=== PATIENT | female | born 1970 | race Caucasian/White ===

== ENCOUNTER → 2016-08-17 | Outpatient (CLI) | payer BC ==
--- NOTE | 2016-08-18 10:00 | MM ---
Reason for exam: screening (asymptomatic). Last mammogram was performed 1 year ago. History: Patient had first child at age 32. Family history of breast cancer in maternal cousin at age 30. Taking hormonal contraceptives for 10 years beginning at age 16. Physical Findings: A clinical breast exam by your physician is recommended on an annual basis and results should be correlated with mammographic findings. MG Screening Mammo w CAD Bilateral CC and MLO view(s) were taken. Prior study comparison: August 14, 2015, bilateral MG screening mammo w CAD. August 05, 2010, bilateral digital screening mammo w/CAD. The breast tissue is almost entirely fat. No significant changes when compared with prior studies. ASSESSMENT: Negative, BI-RAD 1 RECOMMENDATION: Routine screening mammogram of both breasts in 1 year.
== END | disposition home or self-care (01) ==
LOC: RADMAMWWP 10:16
PROVIDERS: ATTEND Family Medicine
DX: Z12.31 Encounter for screening mammogram for malignant neoplasm of breast (principal)

== ENCOUNTER → 2016-11-23 | Outpatient (CLI) | payer BC ==
--- NOTE | 2016-11-24 08:36 | XR ---
Left knee HISTORY: Left knee pain 3 views of the left knee Bone mineralization, joint spaces and alignment are maintained. No fracture or dislocation. IMPRESSION: No significant abnormalities evident.
== END ==
LOC: RADXRYALE 15:00
PROVIDERS: ATTEND Physician Assistant Medical
DX: M25.562 Pain in left knee (principal)

== ENCOUNTER 2019-09-04 | Emergency (ER) | payer OTHER, BC | END 2019-09-04 15:25 | disposition home or self-care (01) | CPT/HCPCS: 73562; 72125; 70450; 99285; 96372 ×2; J2360; J1885 ==

== ENCOUNTER → 2019-11-16 | Outpatient (CLI) | payer OTHER, BC ==
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
== END | disposition home or self-care (01) ==
LOC: RADMRIMAIN 10:27
PROVIDERS: ATTEND Orthopaedic Surgery
DX: S83.242A Other tear of medial meniscus, current injury, left knee, initial encounter (principal); S83.282A Other tear of lateral meniscus, current injury, left knee, initial encounter; M17.12 Unilateral primary osteoarthritis, left knee; M94.262 Chondromalacia, left knee

== ENCOUNTER → 2019-11-28 | Outpatient (CLI) | payer OTHER, BC ==
[2019-11-28 15:06] LABS: Basophils # (A) 0.1 k/uL (0-0.2); Basophils % (A) 1 %; Eosinophils # (A) 0.4 k/uL (0-0.7); Eosinophils % (A) 3 %; HCT 40.8 % (34.0-46.0); HGB 13.1 gm/dL (11.4-16.0); Lymphocytes # (A) 2.9 k/uL (1.0-4.8); Lymphocytes % (A) 23 %; MCH 28.7 pg (25.0-35.0); MCHC 32.1 g/dL (31.0-37.0); MCV 89.2 fL (80.0-100.0); Mean Platelet Volume 6.5; Monocytes # (A) 0.4 k/uL (0-1.0); Monocytes % (A) 3 %; Neutrophils # (A) 8.5 k/uL (1.3-7.7); Neutrophils % (A) 69 %; Platelet Count 404 k/uL (150-450); RBC 4.57 m/uL (3.80-5.40); WBC 12.4 k/uL (3.8-10.6)
[2019-11-28 15:12] LABS: Potassium 3.9 mmol/L (3.5-5.1)
== END | disposition home or self-care (01) ==
LOC: LABPAT 14:32
PROVIDERS: ATTEND Orthopaedic Surgery
DX: Z01.818 Encounter for other preprocedural examination (principal); M23.92 Unspecified internal derangement of left knee
CPT/HCPCS: 36415; 80051; 85025; 93005

== ENCOUNTER 2019-12-07 14:55 | Day surgery (SDC) | payer OTHER, BC ==
[2019-12-01 08:28] VITALS: BMI 42.0
--- NOTE | 2019-12-06 18:17 | HP ---
HISTORY AND PHYSICAL DATE OF SURGERY: 12/07/2019 Virginia Eugene is a 49-year-old patient seen with progressive left knee pain. We discussed options for treatment. She elected to proceed with arthroscopy. Consent regarding the procedure was obtained. PAST MEDICAL HISTORY: Hypertension, hyperlipidemia, hypothyroidism, xww-gajffca-mmbaopjde diabetes. PAST SURGICAL HISTORY: section, cholecystectomy. DAILY MEDICATIONS: Atorvastatin, gabapentin, hydrochlorothiazide, levothyroxine, losartan, Zoloft. ALLERGIES: SULFA. SOCIAL HISTORY: She denies tobacco use. PHYSICAL EVALUATION OF THE LEFT KNEE: Her range of motion is 0 to 130. There is a mild effusion present. Tenderness, medial joint line. Positive medial Donna's. Ligaments stable. Hip rotation without pain. Distal neurovascular exam intact. RADIOGRAPHS: Left knee radiographs revealed moderate osteoarthritic changes. MRI of the left knee revealed medial and lateral meniscal tears. IMPRESSION: 1. Internal derangement of the left knee with medial and lateral meniscal tears. 2. Left knee osteoarthritis. 3. Hypertension. 4. Hyperlipidemia. 5. Hypothyroidism. PLAN: Left knee arthroscopy with partial meniscectomy, partial synovectomy and debridement. MMODL / IJN: [id number] /
[~2019-12-07 14:55] MED LIST: DEXAMETHASONE SOD PHOSPHATE 10 MG/ML 1 ML VIAL IV ONE; LACTATED RINGERS 1,000 ML IV SCH; LIDOCAINE 1% (10MG/ML) FOR IV START INTRADERMA PRN
[2019-12-07] MEDS: ONDANSETRON 4 MG/2 ML VIAL IVP ONE ×2 (15:29→16:55)
[2019-12-07 15:32] LABS: Glucose,Whole Blood 113 mg/dL (75-99)
[2019-12-07] MEDS ORDERED: BUPIVACAINE (PF) 0.25% 30 ML VIAL SQ ONE ×2 (15:51→16:35)
[2019-12-07] MEDS ORDERED: SUCCINYLCHOLINE CHLORIDE 100 MG/5 ML SYR IV ONE (15:56)
[2019-12-07] MEDS ORDERED: PROPOFOL 10 MG/ML 20 ML VIAL IV ONE (15:56)
[2019-12-07] MEDS ORDERED: fentaNYL (PF) 50 MCG/ML 2 ML AMP ONE (15:56)
[2019-12-07] MEDS ORDERED: LIDOCAINE 1% INJ 10MG/ML (20 ML MDV) ONE (15:56)
[2019-12-07] MEDS ORDERED: MIDAZOLAM 2 MG/2 ML VIAL ONE (15:56)
[2019-12-07 16:47] VITALS: TEMP 96.8
[2019-12-07 16:48] VITALS: RESP 16
--- NOTE | 2019-12-07 16:53 | P.OP ---
Date of Procedure: 12/07/19 Preoperative Diagnosis: Internal derangement left knee Postoperative Diagnosis: 1. Tear medial meniscus left knee 2. 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 Reactive synovitis medial, lateral and suprapatellar compartments left knee Procedure(s) Performed: 1. Arthroscopic partial medial meniscectomy left knee 2. Arthroscopic chondroplasty medial femoral condyle left knee 3. Arthroscopic partial synovectomy medial, lateral and suprapatellar compartments left knee Anesthesia: GETA, local Surgeon: Rigoberto Gonzalez Estimated Blood Loss (ml): 7 Pathology: none sent Condition: stable Disposition: PACU Indications for Procedure: 49-year-old patient seen with progressive left knee pain. After treatment options were discussed, she elected to proceed with arthroscopy. Operative Findings: See description of procedure Description of Procedure: Patient was taken to the operative suite. Patient underwent a general anesthetic by the department of anesthesia. Patient was given preoperative antibiotics. The left lower extremity was placed in a well-padded arthroscopic leg morales. The left leg was prepped and draped in the normal sterile orthopedic fashion. A lateral parapatellar and suprapatellar incision was made. Trochars were inserted. Arthroscopy was initiated. Suprapatellar pouch revealed diffuse thick reactive synovitis. The patellofemoral joint appeared to articulate congruently. There as grade 1 chondromalacia with no osteochondral tears present. The scope was guided into the medial gutter. No loose bodies or plica were identified. The scope was then guided into the medial compartment. A medial parapatellar incision was made. Trocar inserted followed by probe. There was a radial tear posterior medial meniscus. There were grade 1/2 chondromalacia changes the medial femoral condyle with some osteochondral flap tears present. There was thick reactive synovitis anteriorly. I performed a partial medial meniscectomy getting down to stable meniscal tissue. I performed a chondroplasty of the medial femoral condyle getting down to stable osteochondral tissue. I performed a partial synovectomy decompressing reactive synovitis. The residual meniscus was stable. The residual osteochondral surface was stable. There was good decompression of the synovitis. Scope and probe were then guided into the intercondylar notch. Cruciates were identified, probed and found to be stable. The scope and probe were then guided into lateral compartment. The lateral meniscus was probed and found to be stable. There was some mild fraying along the anterior aspect the lateral meniscus. There was thick reactive space anteriorly. A motorize shaver was introduced I debrided that area fraying followed by performing a partial synovectomy decompressing thick reactive synovitis. The shaver was removed. There was good decompression of the synovitis. The scope was in guided back into the suprapatellar compartment. I a motorized shaver into the suprapatellar co mpartment. I debrided some piecemeal fragments of meniscus I encountered. I performed a partial synovectomy decompressing the reactive synovitis. The shaver was removed. I took one more look on the entire knee, no residual debris. Instruments were now removed from the joint. The joint was infiltrated with .25% Marcaine. Steri-Strips were applied to the portal sites. Sterile dressings were applied. The patient was placed into a SOURAV hose. No tourniquet was utilized. The patient was awakened, transferred to a bed and taken to recovery stable satisfactory condition.
[2019-12-07] MEDS: HYDROmorphone 0.5 MG/0.5 ML SYRINGE IVP PRN ×3 (16:55→17:18)
[2019-12-07 18:00] VITALS: BP 128/81; PULSE 72
[2019-12-07] MEDS ORDERED: HYDROcodone/APAP 5-325MG 1 EACH TAB PO ONE (18:05)
== END 2019-12-07 18:56 | disposition home or self-care (01) ==
LOC: OR 14:55
PROVIDERS: ATTEND Orthopaedic Surgery
DX: S83.242A Other tear of medial meniscus, current injury, left knee, initial encounter (principal); X58.XXXA Exposure to other specified factors, initial encounter; M94.262 Chondromalacia, left knee; M65.862 Other synovitis and tenosynovitis, left lower leg; I10 Essential (primary) hypertension; E78.5 Hyperlipidemia, unspecified; E03.9 Hypothyroidism, unspecified; E11.9 Type 2 diabetes mellitus without complications; Z90.49 Acquired absence of other specified parts of digestive tract; Z98.890 Other specified postprocedural states; G47.33 Obstructive sleep apnea (adult) (pediatric); F32.9 Major depressive disorder, single episode, unspecified; Z79.890 Hormone replacement therapy; Z79.899 Other long term (current) drug therapy; Z88.2 Allergy status to sulfonamides; Z88.0 Allergy status to penicillin
CPT/HCPCS: 81025; 29881; 29876; J2250; J1100; J0690; J2405; J2001; J3010; J0330; J2704; J1170

== ENCOUNTER → 2019-12-12 | Outpatient (CLI) | payer OTHER, BC ==
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
== END | disposition home or self-care (01) ==
LOC: RADMRIMAIN 09:36
PROVIDERS: ATTEND Family Medicine
DX: M50.122 Cervical disc disorder at C5-C6 level with radiculopathy (principal)
CPT/HCPCS: 72141

== ENCOUNTER → 2020-01-08 | Outpatient (CLI) | payer BC, OTHER ==
--- NOTE | 2020-01-08 16:07 | BD ---
EXAMINATION TYPE: Axial Bone Density DATE OF EXAM: 01/08/2020 COMPARISON: NONE CLINICAL HISTORY: Vitamin D deficiency Height: 63 IN Weight: 257 LBS FRAX RISK QUESTIONS: Secondary Osteoporosis: 3. Menopause before 45: NO PERIODS TAKES DEPO SHOT RISK FACTORS HISTORY OF: Family History of Osteoporosis: YES MOTHER Active: MODERATE Diet low in dairy products/other sources of calcium: Postmenopausal woman: NO PERIODS PT TAKES DEPO SHOT 10+ YEARS Take estrogen and/or progesterone medications: YES DEPO SHOTS 10+ YEARS MEDICATIONS: Thyroid Medications: YES Which medication: Levothyroxine How Lon+ YEARS Additional Medications: VITD3, LEVOTHYROXINE,DEPO SHOTS, MULTI VIT, ASPIRIN 81 MG, SERTRALINE, ARIPOP RAZOLE, ATORVASTATIN, LOSARTAN, GABAPENTIN, CYCLOBENZAPRINE EXAM MEASUREMENTS: Bone mineral densitometry was performed using the e[employer] System. Bone mineral density as measured about the Lumbar spine is: ----- L1-L4(G/cm2): 1.301 T Score Values are as follows: ----- L2: 0.6 ----- L3: 2.3 ----- L4: 0.7 ----- L1-L4: 1.0 Bone mineral density BASELINE Bone mineral density about the R hip (g/cm2): 0.976 Bone mineral density about the L hip (g/cm2): 1.042 T Score values are as follows: -----R Neck: -0.4 -----L Neck: 0.0 -----R Total: 0.5 -----L Total: 0.8 Bone mineral density BASELINE IMPRESSION: Normal (Values between +1 and -1 indicate normal bone mass). Consider repeating this study in 5 year s or sooner if there is some new clinical indication. NOTE: T-SCORE=SD OF THE YOUNG ADULT MEAN.
--- NOTE | 2020-01-09 10:33 | MM ---
Reason for exam: screening (asymptomatic). Last mammogram was performed 3 years and 5 months ago. History: Patient had first child at age 32. Family history of breast cancer in maternal cousin at age 30. Taking hormonal contraceptives for 10 years beginning at age 16. Physical Findings: A clinical breast exam by your physician is recommended on an annual basis and results should be correlated with mammographic findings. MG Screening Mammo w CAD Bilateral CC and MLO view(s) were taken. Prior study comparison: August 17, 2016, bilateral MG screening mammo w CAD. August 14, 2015, bilateral MG screening mammo w CAD. The breast tissue is almost entirely fat. No significant changes when compared with prior studies. ASSESSMENT: Negative, BI-RAD 1 RECOMMENDATION: Routine screening mammogram of both breasts in 1 year.
== END | disposition home or self-care (01) ==
LOC: RADMAMWWP 13:23
PROVIDERS: ATTEND Family Medicine
DX: Z12.31 Encounter for screening mammogram for malignant neoplasm of breast (principal); E55.9 Vitamin D deficiency, unspecified
CPT/HCPCS: 77067; 77080

== ENCOUNTER → 2020-04-16 | Outpatient (CLI) | payer BC ==
--- NOTE | 2020-04-16 18:31 | XR ---
EXAMINATION TYPE: XR abdomen 2V DATE OF EXAM: 04/16/2020 11:57 AM CLINICAL HISTORY: Generalized abdominal pain with diarrhea for 3 to 4 weeks TECHNIQUE: Supine and upright images of the abdomen and pelvis were obtained COMPARISON: None. FINDINGS: Right upper quadrant surgical clips. There is a paucity of small bowel gas. Nondistended co lillian., Although the right hemidiaphragm is somewhat cut off on the upright image, there is no large pn eumoperitoneum seen. The lung bases are clear. The osseous structures are intact. Pelvic phleboliths. IMPRESSION: Paucity of small bowel gas limits evaluation of the small bowel. Nonspecific bowel gas pattern of the colon.
== END | disposition home or self-care (01) ==
LOC: RADXRYALE 11:47
PROVIDERS: ATTEND Physician Assistant Medical
DX: R14.3 Flatulence (principal)
CPT/HCPCS: 74019

== ENCOUNTER → 2020-04-30 | Outpatient (CLI) | payer BC ==
--- NOTE | 2020-04-30 15:21 | XR ---
EXAMINATION TYPE: XR chest 2V DATE OF EXAM: 04/30/2020 COMPARISON: NONE TECHNIQUE: PA and lateral views submitted. HISTORY: Cough FINDINGS: The lungs are clear and there is no pneumothorax, pleural effusion, or focal pneumonia. Hypertrophi c change of the spine. IMPRESSION: 1. No acute process.
== END | disposition home or self-care (01) ==
LOC: RADXRYALE 15:05
PROVIDERS: ATTEND Physician Assistant Medical
DX: R05 Cough (principal)
CPT/HCPCS: 71046

== ENCOUNTER → 2020-10-07 | Outpatient (CLI) | payer BC ==
[2020-10-07 21:39] LABS: Hemoglobin A1C 8.8 % (4.0-6.0)
[2020-10-08 00:16] LABS: African American GFR (CKD) 98.2 (60.0-200.0); Albumin 4.6 g/dL (3.80-4.90); Albumin/Globulin Ratio 1.77 (1.60-3.17); Anion Gap 13.6 mmol/L (4.00-12.00); BUN/Creat Ratio 23.75 Ratio (12.00-20.00); Calcium 9.6 mg/dL (8.7-10.3); Carbon Dioxide 22.4 mmol/L (21.6-31.8); Chol/HDL Ratio 3.36; Globulin 2.6 g/dL (1.6-3.3); Non-African American GFR(CKD) 84.8 (60.0-200.0); Total Bilirubin 0.4 mg/dL (0.2-1.2); Total Protein 7.2 g/dL (6.2-8.2)
[2020-10-08 15:41] LABS: Urine Creatinine 96.9 mg/dL
== END | disposition home or self-care (01) ==
LOC: LABWHC1 10:38
PROVIDERS: ATTEND Internal Medicine Endocrinology, Diabetes & Metabolism
DX: E11.65 Type 2 diabetes mellitus with hyperglycemia (principal); E03.9 Hypothyroidism, unspecified
CPT/HCPCS: 36415; 80053; 80061; 82043; 82570; 83036; 84439; 84443

== ENCOUNTER → 2020-10-15 | Outpatient (CLI) | payer BC ==
--- NOTE | 2020-10-15 15:15 | XR ---
EXAMINATION TYPE: XR foot complete LT DATE OF EXAM: 10/15/2020 CLINICAL HISTORY: pain TECHNIQUE: Frontal, lateral and oblique images of the left foot are obtained. COMPARISON: None. FINDINGS: There is no acute fracture/dislocation evident. The joint spaces appear within normal seay its. The overlying soft tissue appears unremarkable. Small dorsal calcaneal spur without significant plantar calcaneal spur. Cystic lesion at the base of the first metatarsal is nonspecific although ma y reflect a simple bone cyst. IMPRESSION: There is no acute fracture or dislocation. ICD 10 NO FRACTURE, INITIAL EVALUATION
== END | disposition home or self-care (01) ==
LOC: RADXRYALE 14:49
PROVIDERS: ATTEND Physician Assistant Medical
DX: M79.672 Pain in left foot (principal)

== ENCOUNTER → 2021-01-20 | Outpatient (CLI) | payer OTHER ==
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
== END | disposition home or self-care (01) ==
LOC: RADMRIMAIN 14:31
PROVIDERS: ATTEND Psychiatry & Neurology Pain Medicine
DX: M50.223 Other cervical disc displacement at C6-C7 level (principal); M47.812 Spondylosis without myelopathy or radiculopathy, cervical region; M99.71 Connective tissue and disc stenosis of intervertebral foramina of cervical region
CPT/HCPCS: 72156; A9585

== ENCOUNTER → 2021-02-05 | Outpatient (CLI) | payer BC ==
[2021-02-05 21:43] LABS: Hemoglobin A1C 7.2 % (4.0-6.0)
[2021-02-05 22:29] LABS: African American GFR (CKD) 98.2 (60.0-200.0); Albumin 4.2 g/dL (3.80-4.90); Albumin/Globulin Ratio 1.5 (1.60-3.17); Anion Gap 11.6 mmol/L (4.00-12.00); Calcium 9.1 mg/dL (8.7-10.3); Carbon Dioxide 27.4 mmol/L (21.6-31.8); Chol/HDL Ratio 2.58; Globulin 2.8 g/dL (1.6-3.3); LDL Cholesterol,Calculated 77.6 mg/dL (0.0-131.0); Non-African American GFR(CKD) 84.8 (60.0-200.0); Potassium 3.9 mmol/L (3.5-5.5); Total Bilirubin 0.6 mg/dL (0.2-1.2); VLDL Calculation 17.4 mg/dL (5.00-40.00)
[2021-02-06 03:05] LABS: Microalbumin Creatinine Ratio <30 mg/g Creat (0-30); Urine Creatinine 192.2 mg/dL
== END | disposition home or self-care (01) ==
LOC: LABWHC1 12:46
PROVIDERS: ATTEND Internal Medicine Endocrinology, Diabetes & Metabolism
DX: E11.65 Type 2 diabetes mellitus with hyperglycemia (principal)
CPT/HCPCS: 36415; 80053; 80061; 82043; 82570; 83036; 84443

== ENCOUNTER → 2021-04-03 | Outpatient (CLI) | payer BC ==
--- NOTE | 2021-04-04 11:17 | MM ---
Reason for exam: screening (asymptomatic). Last mammogram was performed 1 year and 3 months ago. History: Patient had first child at age 32. Family history of breast cancer in maternal cousin at age 30. Taking hormonal contraceptives for 20 years beginning at age 16. Physical Findings: A clinical breast exam by your physician is recommended on an annual basis and results should be correlated with mammographic findings. MG Screening Mammo w CAD Bilateral CC, MLO, and XCCL view(s) were taken. Prior study comparison: January 08, 2020, bilateral MG screening mammo w CAD. August 17, 2016, bilateral MG screening mammo w CAD. The breast tissue is almost entirely fat. There are benign appearing round calcifications bilaterally. There is no discrete abnormality. ASSESSMENT: Benign, BI-RAD 2 RECOMMENDATION: Routine screening mammogram of both breasts in 1 year.
== END | disposition home or self-care (01) ==
LOC: RADMAMWWP 15:29
PROVIDERS: ATTEND Family Medicine
DX: Z12.31 Encounter for screening mammogram for malignant neoplasm of breast (principal); Z80.3 Family history of malignant neoplasm of breast
CPT/HCPCS: 77067

== ENCOUNTER 2021-05-16 16:00 | Inpatient (IN) | payer BC ==
[2021-05-16 17:19] LABS: Basophils # (A) 0.1 k/uL (0-0.2); Basophils % (A) 1 %; Eosinophils # (A) 0.2 k/uL (0-0.7); Eosinophils % (A) 2 %; HCT 43.6 % (34.0-46.0); HGB 14.5 gm/dL (11.4-16.0); Lymphocytes # (A) 1.3 k/uL (1.0-4.8); Lymphocytes % (A) 17 %; MCH 29.2 pg (25.0-35.0); MCHC 33.2 g/dL (31.0-37.0); Mean Platelet Volume 7.2; Monocytes # (A) 0.4 k/uL (0-1.0); Monocytes % (A) 5 %; Neutrophils # (A) 5.7 k/uL (1.3-7.7); Neutrophils % (A) 73 %; Platelet Count 504 k/uL (150-450); RBC 4.96 m/uL (3.80-5.40); RDW 13.7 % (11.5-15.5); WBC 7.8 k/uL (3.8-10.6)
[2021-05-16 17:39] LABS: ALT 104 U/L (4-34); AST 90 U/L (14-36); African American GFR (CKD) >90 (>60 ml/min/1.73 sqM); Albumin 3.2 g/dL (3.5-5.0); Alkaline Phosphatase 109 U/L (38-126); Anion Gap 11 mmol/L; Blood Urea Nitrogen 12 mg/dL (7-17); Calcium 8.9 mg/dL (8.4-10.2); Carbon Dioxide 24 mmol/L (22-30); Chloride 103 mmol/L (98-107); Glucose 237 mg/dL (74-99); LDH 1216 U/L (313-618); Magnesium 1.7 mg/dL (1.6-2.3); Non-African American GFR(CKD) >90 (>60 ml/min/1.73 sqM); Potassium 4.2 mmol/L (3.5-5.1); Prothrombin Time 10.7 sec (9.0-12.0); Sodium 138 mmol/L (137-145); Total Bilirubin 0.6 mg/dL (0.2-1.3); Total Protein 6.8 g/dL (6.3-8.2)
[2021-05-16 17:47] LABS: Partial Thromboplastin Time 20.7 sec (22.0-30.0)
[2021-05-16 17:52] LABS: C Reactive Protein 18.6 mg/dL (<1.0)
--- NOTE | 2021-05-16 17:53 | XR ---
EXAMINATION TYPE: XR chest 1V portable DATE OF EXAM: 05/16/2021 COMPARISON: 04/30/2020 HISTORY: Pneumonia S/P TECHNIQUE: FINDINGS: There is some bilateral patchy interstitial pulmonary infiltrates. Heart size is normal. Th ere is slight blunting right costophrenic angle. There are no hilar masses. Bony thorax is intact. IMPRESSION: Bilateral interstitial pneumonia is new compared to old exam. Small right pleural effusio n or pleural reaction is new compared to old exam.
[2021-05-16] MEDS ORDERED: DEXAMETHASONE SOD PHOSPHATE 10 MG/ML 1 ML VIAL IVP STA (17:56)
--- NOTE | 2021-05-16 17:56 | ED ---
General Adult HPI - General Chief complaint: Upper Respiratory Infection Stated complaint: Covid+/antibodies Time Seen by Provider: 05/16/21 16:34 Source: patient, RN notes reviewed Mode of arrival: ambulatory Limitations: no limitations - History of Present Illness Initial comments: 50-year-old with a past medical history of diabetes mellitus, hyperlipidemia, hypertension female presents to the emergency room for a chief complaint of wanting antibodies. Patient was sent in by primary care. She has had Covid symptoms for about 10 days now. pt tested positive about a week ago. She has been short of breath for about a week as well.Patient has no other complaints at this time including chest pain, abdominal pain, nausea or vomiting, headache, or visual changes. - Related Data Home Medications Medication Instructions Recorded Confirmed Aspirin 81 mg PO DAILY 04/18/16 12/01/19 Atorvastatin [Lipitor] 40 mg PO DAILY 04/18/16 12/01/19 Cholecalciferol [Vitamin D3] 10,000 unit PO DAILY 04/18/16 12/01/19 Levothyroxine Sodium [Synthroid] 125 mcg PO DAILY 04/18/16 12/01/19 ARIPiprazole [Abilify] 5 mg PO DAILY 12/01/19 12/01/19 Cyclobenzaprine [Flexeril] 10 mg PO TID PRN 12/01/19 12/01/19 Gabapentin [Neurontin] 300 mg PO TID 12/01/19 12/01/19 Losartan Potassium [Cozaar] 25 mg PO DAILY 12/01/19 12/07/19 Medroxyprogesterone Acetate 150 mg IM Q90D 12/01/19 12/01/19 [Depo-Provera] Multivitamins, Thera [Multivitamin 1 tab PO DAILY 12/01/19 12/01/19 (formulary)] Sertraline [Zoloft] 150 mg PO DAILY 12/01/19 12/01/19 Previous Rx's Medication Instructions Recorded HYDROcodone/APAP 5-325MG [[place] 1 tab PO Q6HR PRN 7 Days #28 tab 12/07/19 5-325] Allergies Allergy/AdvReac Type Severity Reaction Status Date / Time amoxicillin [From Augmentin] AdvReac Nausea & Verified 05/16/21 16:12 Vomiting clavulanic acid AdvReac Nausea & Verified 05/16/21 16:12 [From Augmentin] Vomiting Sulfa (Sulfonamide AdvReac Nausea Verified 05/16/21 16:12 Antibiotics) Review of Systems ROS Statement: Those systems with pertinent positive or pertinent negative responses have been documented in the HPI. ROS Other: All systems not noted in ROS Statement are negative. Past Medical History Past Medical History: Diabetes Mellitus, Hyperlipidemia, Hypertension, Thyroid Disorder Additional Past Medical History / Comment(s): diverticulitis, low potassium History of Any Multi-Drug Resistant Organisms: None Reported Past Surgical History: Section, Cholecystectomy Past Psychological History: Depression Smoking Status: Never smoker Past Alcohol Use History: None Reported Past Drug Use History: None Reported General Exam Limitations: no limitations General appearance: alert, in no apparent distress Head exam: Present: atraumatic Eye exam: Present: normal appearance, PERRL, EOMI ENT exam: Present: normal exam, mucous membranes moist Neck exam: Present: normal inspection, full ROM. Absent: tenderness Respiratory exam: Present: normal lung sounds bilaterally. Absent: respiratory distress, wheezes Cardiovascular Exam: Present: regular rate, normal rhythm, normal heart sounds GI/Abdominal exam: Present: soft, normal bowel sounds. Absent: distended, tenderness Neurological exam: Present: alert Course Vital Signs 05/16/21 05/16/21 05/16/21 16:09 17:10 17:12 Temperature 98 F Pulse Rate 91 92 Respiratory 20 24 Rate Blood Pressure 142/81 O2 Sat by Pulse 86 L 93 L Oximetry EKG Findings - EKG Comments: EKG Findings:: Normal sinus rhythm, ventricular rate 90, CA interval 1:30, QTC 489 Medical Decision Making - Medical Decision Making Patient presents hypoxic with oxygenation at 86% on room air. On 4 L patient is at 93%. Unfortunately patient does not qualify for antibodies as she is not a candidate for outpatient treatment given acute hypoxic respiratory failure. Therefore laboratory evaluation was initiated and chest x-ray obtained. CBC and CMP unremarkable. COVID-19 markers are pending. Chest x-ray does show bilateral interstitial pneumonia with a small right pleural effusion or reaction. Patient will need to be admitted for acute hypoxic respiratory failure secondary to COVID-19 infection. - Lab Data Result diagrams: 05/16/21 17:07 Lab Results 05/16/21 05/16/21 Range/Units 17:07 17:07 WBC 7.8 (3.8-10.6) k/uL RBC 4.96 (3.80-5.40) m/uL Hgb 14.5 (11.4-16.0) gm/dL Hct 43.6 (34.0-46.0) % MCV 88.0 (80.0-100.0) fL MCH 29.2 (25.0-35.0) pg MCHC 33.2 (31.0-37.0) g/dL RDW 13.7 (11.5-15.5) % Plt Count 504 H (150-450) k/uL MPV 7.2 Neutrophils % 73 % Lymphocytes % 17 % Monocytes % 5 % Eosinophils % 2 % Basophils % 1 % Neutrophils # 5.7 (1.3-7.7) k/uL Lymphocytes # 1.3 (1.0-4.8) k/uL Monocytes # 0.4 (0-1.0) k/uL Eosinophils # 0.2 (0-0.7) k/uL Basophils # 0.1 (0-0.2) k/uL PT 10.7 (9.0-12.0) sec INR 1.0 (<1.2) APTT 20.7 L (22.0-30.0) sec Disposition Clinical Impression: COVID-19, Acute respiratory failure with hypoxia, Pneumonia due to COVID-19 virus Disposition: ADMITTED IP TO THIS HOSP Is patient prescribed a controlled substance at d/c from ED?: No Referrals: Dani Jack DO [Primary Care Provider] - 1-2 days Time of Disposition: 17:55
[2021-05-16] MEDS ORDERED: NALOXONE 0.4 MG/ML 1 ML VIAL IV PRN (17:57)
[2021-05-16] MEDS: SODIUM CHLORIDE 0.9% 1,000 ML IV SCH (18:48)
[2021-05-16 20:50] LABS: Glucose,Whole Blood 266 mg/dL (75-99)
[2021-05-16] MEDS: INSULIN ASPART (NovoLOG) 100 UNIT/ML VIAL SQ SCH (22:30)
[2021-05-17] MEDS ORDERED: BUTALB/APAP/CAFF 50-325-40MG TAB PO PRN (06:41)
[2021-05-17] MEDS ORDERED: CYCLOBENZAPRINE 5 MG TAB PO PRN (06:41)
[2021-05-17 07:06] LABS: Glucose,Whole Blood 307 mg/dL (75-99)
[2021-05-17] MEDS ORDERED: INSULIN ASPART (NovoLOG) 100 UNIT/ML VIAL SQ SCH (07:30)
[2021-05-17] MEDS: DEXAMETHASONE SOD PHOSPHATE 10 MG/ML 1 ML VIAL IVP SCH (07:48)
[2021-05-17] MEDS: INSULIN ASPART (NovoLOG) 100 UNIT/ML VIAL SQ SCH ×4 (07:48→22:40)
[2021-05-17] MEDS: MAGNESIUM OXIDE 400 MG TAB PO SCH (07:49)
[2021-05-17] MEDS: FUROSEMIDE 20 MG TAB PO SCH (07:49)
[2021-05-17] MEDS: SERTRALINE 50 MG TAB PO SCH (07:49)
[2021-05-17] MEDS: ASPIRIN 81 MG PO SCH (07:49)
[2021-05-17] MEDS: MULTIVITAMINS, THERA 1 EACH TAB PO SCH (07:49)
[2021-05-17] MEDS: ZINC SULFATE 220 MG CAP PO SCH (07:49)
[2021-05-17] MEDS: SERTRALINE 100 MG TAB PO SCH (07:49)
[2021-05-17] MEDS: ATORVASTATIN 40 MG TAB PO SCH (07:50)
[2021-05-17] MEDS: GABAPENTIN 300 MG CAP PO SCH ×3 (07:50→22:39)
[2021-05-17] MEDS: LOSARTAN 50 MG TAB PO SCH (07:50)
[2021-05-17] MEDS: ASCORBIC ACID 500 MG TAB PO SCH (07:55)
[2021-05-17] MEDS ORDERED: CHOLECALCIFEROL 125 MCG (5000 IU) TABLET PO SCH (09:00)
[2021-05-17] MEDS: ARIPiprazole 5 MG TAB PO SCH (09:01)
[2021-05-17] MEDS: PIOGLITAZONE 30 MG TAB PO SCH (09:01)
[2021-05-17] MEDS: CHOLECALCIFEROL 125 MCG (5000 IU) TABLET PO SCH (09:01)
[2021-05-17] MEDS: LEVOTHYROXINE 137 MCG TAB PO SCH (09:01)
[2021-05-17] MEDS: FAMOTIDINE 20 MG TAB PO SCH (09:03)
[2021-05-17] MEDS: ENOXAPARIN 40 MG/0.4 ML SYRINGE SQ SCH (09:03)
[2021-05-17 11:42] LABS: Glucose,Whole Blood 397 mg/dL (75-99)
[2021-05-17 16:19] LABS: Glucose,Whole Blood 476 mg/dL (75-99)
[2021-05-17] MEDS: SODIUM CHLORIDE 0.9% 1,000 ML IV SCH (16:26)
--- NOTE | 2021-05-17 17:25 | P.HPIM ---
History of Present Illness This is a pleasant 50 years old female with past medical history of Diabetes Mellitus, Hyperlipidemia, Hypertension, hypothyroidism. She is a patient of Dr. Jack. She also sees Dr. Miller for her diabetes and she has history of arthritis. She presents with shortness of breath and hypoxia. Patient states that she's been diagnosed with [place] 19 infection last Wednesday about one week ago, and she's been complaining from dyspnea like this since the Tuesdays before about 10 days ago. Her shortness of breath was not getting better so she decided to come to emergency room. She has dry cough with no phlegm. No chest pain She had some diarrhea but stopped. No urinary symptoms or difficulty moving his arms or legs. No abdominal pain. She denies smoking, alcohol or illicit drugs She denies doing a test she stated that she has ablation and her has been fixed. No home oxygen Patient afebrile on admission however she was hypoxic at 86% on room air, currently she is saturating 91% on 4 L oxygen per minute Labs reviewed, CBC and INR and BMP are unremarkable. Glucose elevated to 37- 307. Liver enzymes mildly elevated AST slightly elevated at 90 and ALT at 104. Bilirubin is normal at 0.6. He did with ferritin 738, lactate dehydrogenase 1216 and C-reactive protein 18.6. Calcitonin is normal at 0.05. EKG showing normal sinus rhythm at [address]-T changes Chest x-ray: Bilateral interstitial pneumonia Review of Systems CONSTITUTIONAL: No fever, no malaise, no fatigue. HEENT: No recent visual problems or hearing problems. Denied any sore throat. CARDIOVASCULAR: No orthopnea, PND, no palpitations, no syncope. PULMONARY: No chest wall tenderness, no hemoptysis. GASTROINTESTINAL: No diarrhea, no nausea, no vomiting, no abdominal pain. Normoactive bowel sounds. NEUROLOGICAL: No headaches, no weakness, no numbness. HEMATOLOGICAL: Denies any bleeding or petechiae. GENITOURINARY: Denies any burning micturition, frequency, or urgency. MUSCULOSKELETAL/RHEUMATOLOGICAL: Denies any joint pain, swelling, or any muscle pain. ENDOCRINE: Denies any polyuria or polydipsia. Past Medical History Past Medical History: Diabetes Mellitus, Hyperlipidemia, Hypertension, Thyroid Disorder Additional Past Medical History / Comment(s): diverticulitis, low potassium, Type 2 DM, DVT in the 1990s History of Any Multi-Drug Resistant Organisms: None Reported Past Surgical History: Section, Cholecystectomy, Orthopedic Surgery Additional Past Surgical History / Comment(s): Left meniscus repair November 2019 Past Psychological History: Depression Smoking Status: Former smoker Past Alcohol Use History: None Reported Past Drug Use History: None Reported Medications and Allergies Home Medications Medication Instructions Recorded Confirmed Type Aspirin 81 mg PO DAILY 04/18/16 05/16/21 History Atorvastatin [Lipitor] 40 mg PO DAILY 04/18/16 05/16/21 History ARIPiprazole [Abilify] 5 mg PO DAILY 12/01/19 05/16/21 History Gabapentin [Neurontin] 300 mg PO TID 12/01/19 05/16/21 History Medroxyprogesterone Acetate 150 mg IM Q90D 12/01/19 05/16/21 History [Depo-Provera] Multivitamins, Thera [Multivitamin 1 tab PO DAILY 12/01/19 05/16/21 History (formulary)] Sertraline [Zoloft] 50 mg PO DAILY 12/01/19 05/16/21 History Butalb/Acetaminophen/Caffeine 1 tab PO DAILY PRN 05/16/21 05/16/21 History [Fioricet 50-325-40] Cholecalciferol (Vitamin D3) 125 mcg PO DAILY 05/16/21 05/16/21 History [Vitamin D3 (125 MCG = 5,000 IU)] Cyclobenzaprine HCl 7.5 mg PO DAILY PRN 05/16/21 05/16/21 History Dapagliflozin Propanediol [Farxiga] 10 mg PO DAILY 05/16/21 05/16/21 History Furosemide [Lasix] 20 mg PO DAILY 05/16/21 05/16/21 History Glimepiride [Amaryl] 4 mg PO DAILY 05/16/21 05/16/21 History Levothyroxine Sodium [Synthroid] 137 mcg PO DAILY 05/16/21 05/16/21 History Losartan Potassium 100 mg PO DAILY 05/16/21 05/16/21 History Magnesium Oxide [Cuevas] 500 mg PO DAILY 05/16/21 05/16/21 History Pioglitazone HCl 30 mg PO DAILY 05/16/21 05/16/21 History Sertraline [Zoloft] 100 mg PO DAILY 05/16/21 05/16/21 History Turmeric Root Extract [Turmeric] 500 mg PO DAILY 05/16/21 05/16/21 History metFORMIN HCL ER [Glucophage XR] 500 mg PO BID 05/16/21 05/16/21 History Allergies Allergy/AdvReac Type Severity Reaction Status Date / Time amoxicillin [From Augmentin] AdvReac Nausea & Verified 05/16/21 18:28 Vomiting clavulanic acid AdvReac Nausea & Verified 05/16/21 18:28 [From Augmentin] Vomiting Sulfa (Sulfonamide AdvReac Nausea Verified 05/16/21 18:28 Antibiotics) Physical Exam Vitals: Vital Signs Temp Pulse Pulse Resp BP BP Pulse Ox 05/17/21 06:00 97.5 F L 65 19 124/83 91 L 05/17/21 02:00 97.7 F 62 18 127/83 92 L 05/16/21 20:50 98.5 F 79 19 116/82 93 L 05/16/21 20:45 98.1 F 87 20 141/87 96 05/16/21 19:05 88 20 94 L 05/16/21 18:19 88 20 133/81 88 L 05/16/21 18:10 87 18 96 05/16/21 17:12 92 93 L 05/16/21 17:10 24 05/16/21 16:09 98 F 91 20 142/81 86 L Intake and Output 05/16/21 05/17/21 05/17/21 22:59 06:59 14:59 Other: Voiding Method Toilet # Voids 1 Weight 117.934 kg GENERAL: The patient is alert and oriented x3, not in any acute distress. Well developed, well nourished. HEENT: Pupils are round and equally reacting to light. EOMI. No scleral icterus. No conjunctival pallor. Normocephalic, atraumatic. No pharyngeal erythema. No th yromegaly. CARDIOVASCULAR: S1 and S2 present. No murmurs, rubs, or gallops. -PULMONARY: Chest is clear to auscultation, no wheezing or crackles. Bilateral crepitation ABDOMEN: Soft, nontender, nondistended, normoactive bowel sounds. No palpable organomegaly. MUSCULOSKELETAL: No joint swelling or deformity. EXTREMITIES: No cyanosis, clubbing, or pedal edema. NEUROLOGICAL: Gross neurological examination did not reveal any focal deficits. SKIN: No rashes. No petechiae Results CBC & Chem 7: 05/16/21 17:07 05/16/21 17:07 Labs: Abnormal Lab Results - Last 24 Hours (Table) 05/16/21 05/16/21 05/16/21 Range/Units 17:07 17:07 17:07 Plt Count 504 H (150-450) k/uL APTT 20.7 L (22.0-30.0) sec Glucose 237 H (74-99) mg/dL POC Glucose (mg/dL) (75-99) mg/dL Ferritin 738.0 H (10.0-291.0) ng/mL AST 90 H (14-36) U/L ALT 104 H (4-34) U/L Lactate Dehydrogenase 1216 H (313-618) U/L C-Reactive Protein 18.6 H (<1.0) mg/dL Albumin 3.2 L (3.5-5.0) g/dL 05/16/21 05/17/21 Range/Units 20:48 07:04 Plt Count (150-450) k/uL APTT (22.0-30.0) sec Glucose (74-99) mg/dL POC Glucose (mg/dL) 266 H 307 H (75-99) mg/dL Ferritin (10.0-291.0) ng/mL AST (14-36) U/L ALT (4-34) U/L Lactate Dehydrogenase (313-618) U/L C-Reactive Protein (<1.0) mg/dL Albumin (3.5-5.0) g/dL Thrombosis Risk Factor Assmnt - Choose All That Apply Each Factor Represents 1 point: Age 41-60 years, Obesity (BMI >25), Serious lung disease incl. pneumonia (< 1month) Each Risk Factor Represents 3 Points: History of DVT/PE Thrombosis Risk Factor Assessment Total Risk Factor Score: 6 Thrombosis Risk Factor Assessment Level: High Risk Assessment and Plan Assessment: Bilateral Covid pneumonia Acute hypoxic respiratory failure Increased inflammatory markers monthly Mildly elevated liver enzymes mostly likely secondary to Covid infection Diabetes mellitus Hypertension Hyperlipidemia Morbid obesity with BMI 44.6 Diabetic neuropathy History of bilateral knee arthritis Plan: this Is a pleasant 50 years old female who presents with covid pneumonia Continue with dexamethasone Continue with vitamin C, vitamin D and zinc Pulmonary consult Labs and medication were reviewed.. Continue same treatment. Continue with symptomatic treatment. Resume home medication. Monitor lytes and vitals. DVT and GI prophylaxis. Further recommendations depends on the clinical course of the patient DVT prophylaxis: Subcutaneous Lovenox GI Prophylaxis: Pepcid Prognosis is guarded
[2021-05-17] MEDS ORDERED: INSULIN DETEMIR (LEVEMIR) 100 UNIT/ML SYR SQ SCH ×2 (17:26→22:30)
--- NOTE | 2021-05-17 18:05 | P.CNPUL ---
History of Present Illness Consult date: 05/17/21 Requesting physician: Shayan E Shamir Reason for consult: dyspnea, hypoxemia, pneumonia, abnormal CXR/CT Chief complaint: Dyspnea, hypoxia History of present illness: This is a 50-year-old white female patient with past history of hypertension, hyperlipidemia, diabetes mellitus type 2, hypothyroidism who follows with Dr. Jack. The patient presented to the emergency department on 05/16/2021 requesting infusion of monoclonal antibodies. She was sent in by her PCP. She has had COVID 19 symptoms for 10 days prior to coming in. She tested positive for COVID-19 on 05/10/2021. She is not vaccinated against COVID-19. She reports increased shortness of breath for about a week, cough. She reports being very fatigued. She states she was tested for COVID-19 twice on outpatient basis and was negative. Chest x-ray shows bilateral interstitial pneumonia, small right pleural effusion. Admission labs show white blood cell count of 7.8, hemoglobin of 14.5, platelet count is 504, INR is 1.0, electrolytes and renal profile were within normal limits, ferritin level is 738, AST was 90, ALT was 104, LDH was 1216, troponin was less than 0.012, CRP was 18.6. Patient was given a dose of Decadron in the emergency department, as started on maintenance Decadron 6 mg IV push daily, she is on prophylactic Lovenox, pro-calcitonin level was negative at 0.05. She is currently on 4 L of oxygen pulse ox is 91-93%. Review of Systems All systems: negative Constitutional: Reports fatigue, Reports weakness, Denies chills, Denies fever Eyes: denies blurred vision, denies pain Ears, nose, mouth and throat: Denies headache, Denies sore throat Cardiovascular: Denies chest pain, Denies shortness of breath Respiratory: Reports dyspnea, Denies cough Gastrointestinal: Denies abdominal pain, Denies diarrhea, Denies nausea, Denies vomiting Genitourinary: Denies dysuria, Denies hematuria Musculoskeletal: Denies myalgias Integumentary: Denies pruritus, Denies rash Neurological: Denies numbness, Denies weakness Psychiatric: Denies anxiety, Denies depression Endocrine: Denies fatigue, Denies weight change Past Medical History Past Medical History: Diabetes Mellitus, Hyperlipidemia, Hypertension, Thyroid Disorder Additional Past Medical History / Comment(s): diverticulitis, low potassium, Type 2 DM, DVT in the History of Any Multi-Drug Resistant Organisms: None Reported Past Surgical History: Section, Cholecystectomy, Orthopedic Surgery Additional Past Surgical History / Comment(s): Left meniscus repair November 2019 Past Psychological History: Depression Smoking Status: Former smoker Past Alcohol Use History: None Reported Past Drug Use History: None Reported Medications and Allergies Home Medications Medication Instructions Recorded Confirmed Type Aspirin 81 mg PO DAILY 04/18/16 05/16/21 History Atorvastatin [Lipitor] 40 mg PO DAILY 04/18/16 05/16/21 History ARIPiprazole [Abilify] 5 mg PO DAILY 12/01/19 05/16/21 History Gabapentin [Neurontin] 300 mg PO TID 12/01/19 05/16/21 History Medroxyprogesterone Acetate 150 mg IM Q90D 12/01/19 05/16/21 History [Depo-Provera] Multivitamins, Thera [Multivitamin 1 tab PO DAILY 12/01/19 05/16/21 History (formulary)] Sertraline [Zoloft] 50 mg PO DAILY 12/01/19 05/16/21 History Butalb/Acetaminophen/Caffeine 1 tab PO DAILY PRN 05/16/21 05/16/21 History [Fioricet 50-325-40] Cholecalciferol (Vitamin D3) 125 mcg PO DAILY 05/16/21 05/16/21 History [Vitamin D3 (125 MCG = 5,000 IU)] Cyclobenzaprine HCl 7.5 mg PO DAILY PRN 05/16/21 05/16/21 History Dapagliflozin Propanediol [Farxiga] 10 mg PO DAILY 05/16/21 05/16/21 History Furosemide [Lasix] 20 mg PO DAILY 05/16/21 05/16/21 History Glimepiride [Amaryl] 4 mg PO DAILY 05/16/21 05/16/21 History Levothyroxine Sodium [Synthroid] 137 mcg PO DAILY 05/16/21 05/16/21 History Losartan Potassium 100 mg PO DAILY 05/16/21 05/16/21 History Magnesium Oxide [Cuevas] 500 mg PO DAILY 05/16/21 05/16/21 History Pioglitazone HCl 30 mg PO DAILY 05/16/21 05/16/21 History Sertraline [Zoloft] 100 mg PO DAILY 05/16/21 05/16/21 History Turmeric Root Extract [Turmeric] 500 mg PO DAILY 05/16/21 05/16/21 History metFORMIN HCL ER [Glucophage XR] 500 mg PO BID 05/16/21 05/16/21 History Allergies Allergy/AdvReac Type Severity Reaction Status Date / Time amoxicillin [From Augmentin] AdvReac Nausea & Verified 05/16/21 18:28 Vomiting clavulanic acid AdvReac Nausea & Verified 05/16/21 18:28 [From Augmentin] Vomiting Sulfa (Sulfonamide AdvReac Nausea Verified 05/16/21 18:28 Antibiotics) Physical Exam Vitals: Vital Signs Temp Pulse Pulse Resp BP BP Pulse Ox 05/17/21 17:00 91 L 05/17/21 14:34 98.4 F 75 18 126/71 91 L 05/17/21 09:49 98.2 F 67 17 138/81 93 L 05/17/21 06:00 97.5 F L 65 19 124/83 91 L 05/17/21 02:00 97.7 F 62 18 127/83 92 L 05/16/21 20:50 98.5 F 79 19 116/82 93 L 05/16/21 20:45 98.1 F 87 20 141/87 96 05/16/21 19:05 88 20 94 L 05/16/21 18:19 88 20 133/81 88 L 05/16/21 18:10 87 18 96 Intake and Output 05/17/21 05/17/21 05/17/21 06:59 14:59 22:59 Intake Total 160 Balance 160 Intake: Intake, IV Titration 160 Amount Sodium Chloride 0.9% 1, 160 000 ml @ 20 mls/hr IV . Q24H [facility] Rx#:[id number] Other: # Voids 1 GENERAL EXAM: Alert, active, white female, on 4 L of oxygen the pulse ox of 91% comfortable in no apparent distress. HEAD: Normocephalic/atraumatic. EYES: Normal reaction of pupils, equal size. Conjunctiva pink, sclera white. NOSE: Clear with pink turbinates. THROAT: No erythema or exudates. NECK: No masses, no JVD, no thyroid enlargement, no adenopathy. CHEST: No chest wall deformity. Symmetrical expansion. LUNGS: Equal air entry with bibasilar crackles CVS: Regular rate and rhythm, normal S1 and S2, no gallops, no murmurs, no rubs ABDOMEN: Soft, nontender. No hepatosplenomegaly, normal bowel sounds, no guarding or rigidity. EXTREMITIES: No clubbing, no edema, no cyanosis, 2+ pulses and upper and lower extremities. MUSCULOSKELETAL: Muscle strength and tone normal. SPINE: No scoliosis or deformity SKIN: No rashes CENTRAL NERVOUS SYSTEM: Alert and oriented -3. No focal deficits, tone is normal in all 4 extremities. PSYCHIATRIC: Alert and oriented -3. Appropriate affect. Intact judgment and insight. Results - Laboratory Findings CBC and BMP: 05/16/21 17:07 05/16/21 17:07 PT/INR, D-dimer PT 10.7 sec (9.0-12.0) 05/16/21 17:07 INR 1.0 (<1.2) 05/16/21 17:07 Abnormal lab findings: Abnormal Labs 05/16/21 05/16/21 05/16/21 17:07 17:07 17:07 Plt Count 504 H APTT 20.7 L Glucose 237 H POC Glucose (mg/dL) Ferritin 738.0 H AST 90 H ALT 104 H Lactate Dehydrogenase 1216 H C-Reactive Protein 18.6 H Albumin 3.2 L 05/16/21 05/17/21 05/17/21 20:48 07:04 11:40 Plt Count APTT Glucose POC Glucose (mg/dL) 266 H 307 H 397 H Ferritin AST ALT Lactate Dehydrogenase C-Reactive Protein Albumin 05/17/21 16:17 Plt Count APTT Glucose POC Glucose (mg/dL) 476 H Ferritin AST ALT Lactate Dehydrogenase C-Reactive Protein Albumin - Diagnostic Findings Chest x-ray: report reviewed, image reviewed Assessment and Plan Plan: Assessment: #1. Acute hypoxic respiratory failure related to COVID-19 pneumonia, patient presented to the emergency department after 10 day history of symptoms, tested positive on 05/10/2021. She is not vaccinated against COVID-19. Patient outside the window for Remdesivir, she continues on supportive medical care with Decadron, prophylactic Lovenox and multivitamins #2. Hypertension #3. Hyperlipidemia #4. Diabetes mellitus II #5. Hypothyroidism #6. Depression #7. Lifetime nonsmoker Plan: Continue current medical treatment Continue Decadron Continue Lovenox Obtain a d-dimer, inflammatory markers We'll continue to follow patient's clinical course She is not a candidate for Remdesivir I performed a history & physical examination of the patient and discussed their management with my nurse practitioner, Marta Cedeno. I reviewed the nurse practitioner's note and agree with the documented findings and plan of care. Lung sounds are positive for diminished breath sounds throughout the lung guevara. The findings and the impression was discussed with the patient. I attest to the documentation by the nurse practitioner. Time with Patient: Greater than 30
[2021-05-17] MEDS: GLIMEPIRIDE 4 MG TAB PO SCH (18:16)
[2021-05-17] MEDS: metFORMIN 500 MG TAB PO SCH (18:16)
[2021-05-17] MEDS ORDERED: METFORMIN HCL 500 MG PO SCH (21:00)
[2021-05-17 21:44] LABS: Glucose,Whole Blood 398 mg/dL (75-99)
[2021-05-18] MEDS: LEVOTHYROXINE 137 MCG TAB PO SCH (06:18)
[2021-05-18 07:04] LABS: Glucose,Whole Blood 157 mg/dL (75-99)
[2021-05-18] MEDS: DEXAMETHASONE SOD PHOSPHATE 10 MG/ML 1 ML VIAL IVP SCH (08:09)
[2021-05-18] MEDS: ENOXAPARIN 40 MG/0.4 ML SYRINGE SQ SCH (08:09)
[2021-05-18] MEDS: GABAPENTIN 300 MG CAP PO SCH ×3 (08:10→21:27)
[2021-05-18] MEDS: ARIPiprazole 5 MG TAB PO SCH (08:10)
[2021-05-18] MEDS: INSULIN ASPART (NovoLOG) 100 UNIT/ML VIAL SQ SCH ×4 (08:10→21:27)
[2021-05-18] MEDS: CHOLECALCIFEROL 125 MCG (5000 IU) TABLET PO SCH (08:10)
[2021-05-18] MEDS: SERTRALINE 100 MG TAB PO SCH (08:10)
[2021-05-18] MEDS: metFORMIN 500 MG TAB PO SCH ×2 (08:10→17:32)
[2021-05-18] MEDS: MULTIVITAMINS, THERA 1 EACH TAB PO SCH (08:10)
[2021-05-18] MEDS: MAGNESIUM OXIDE 400 MG TAB PO SCH (08:10)
[2021-05-18] MEDS: FUROSEMIDE 20 MG TAB PO SCH (08:10)
[2021-05-18] MEDS: ASPIRIN 81 MG PO SCH (08:10)
[2021-05-18] MEDS: ATORVASTATIN 40 MG TAB PO SCH (08:10)
[2021-05-18] MEDS: SERTRALINE 50 MG TAB PO SCH (08:10)
[2021-05-18] MEDS: ASCORBIC ACID 500 MG TAB PO SCH (08:10)
[2021-05-18] MEDS: ZINC SULFATE 220 MG CAP PO SCH (08:10)
[2021-05-18] MEDS: GLIMEPIRIDE 4 MG TAB PO SCH (08:10)
[2021-05-18] MEDS: LOSARTAN 50 MG TAB PO SCH (08:11)
[2021-05-18] MEDS: PIOGLITAZONE 30 MG TAB PO SCH (08:11)
[2021-05-18] MEDS: FAMOTIDINE 20 MG TAB PO SCH (08:11)
[2021-05-18 11:53] LABS: Glucose,Whole Blood 200 mg/dL (75-99)
[2021-05-18] MEDS: SODIUM CHLORIDE 0.9% 1,000 ML IV SCH (16:08)
[2021-05-18 16:48] LABS: Glucose,Whole Blood 244 mg/dL (75-99)
--- NOTE | 2021-05-18 17:25 | P.PN ---
Subjective Progress Note Date: 05/18/21 Principal diagnosis: COVID-19 pneumonia This is a 50-year-old white female patient with past history of hypertension, hyperlipidemia, diabetes mellitus type 2, hypothyroidism who follows with Dr. Jack. The patient presented to the emergency department on 05/16/2021 requesting infusion of monoclonal antibodies. She was sent in by her PCP. She has had COVID 19 symptoms for 10 days prior to coming in. She tested positive for COVID-19 on 05/10/2021. She is not vaccinated against COVID-19. She reports increased shortness of breath for about a week, cough. She reports being very fatigued. She states she was tested for COVID-19 twice on outpatient basis and was negative. Chest x-ray shows bilateral interstitial pneumonia, small right pleural effusion. Admission labs show white blood cell count of 7.8, hemoglobin of 14.5, platelet count is 504, INR is 1.0, electrolytes and renal profile were within normal limits, ferritin level is 738, AST was 90, ALT was 104, LDH was 1216, troponin was less than 0.012, CRP was 18.6. Patient was given a dose of Decadron in the emergency department, as started on maintenance Decadron 6 mg IV push daily, she is on prophylactic Lovenox, pro-calcitonin level was negative at 0.05. She is currently on 4 L of oxygen pulse ox is 91-93%. The patient is seen today 05/18/2021 in follow-up on the regular medical floor. She is currently resting comfortably in bed. Awake and alert in no acute distress. She is maintaining O2 saturations in the 90s on 4 L/m per nasal cannula. No IV fluids. Blood glucose 244. She is continued on Decadron, Lovenox, vitamin supplements. Objective - Vital Signs Vital signs: Vital Signs Temp 98.5 F 05/18/21 14:51 Pulse 56 L 05/18/21 14:51 Resp 18 05/18/21 14:51 BP 122/69 05/18/21 14:51 Pulse Ox 94 L 05/18/21 14:51 Intake & Output 05/17/21 05/18/21 05/18/21 18:59 06:59 18:59 Intake Total 160 400 Balance 160 400 Intake: Intake, IV Titration 160 Amount Sodium Chloride 0.9% 1, 160 000 ml @ 20 mls/hr IV . Q24H [facility] Rx#:[id number] Oral 400 Other: Voiding Method Toilet # Voids 3 - Exam GENERAL EXAM: Alert, active, white female, on 4 L of oxygen the pulse ox of 94% comfortable in no apparent distress. HEAD: Normocephalic/atraumatic. EYES: Normal reaction of pupils, equal size. Conjunctiva pink, sclera white. NOSE: Clear with pink turbinates. THROAT: No erythema or exudates. NECK: No masses, no JVD, no thyroid enlargement, no adenopathy. CHEST: No chest wall deformity. Symmetrical expansion. LUNGS: Equal air entry with bibasilar crackles CVS: Regular rate and rhythm, normal S1 and S2, no gallops, no murmurs, no rubs ABDOMEN: Soft, nontender. No hepatosplenomegaly, normal bowel sounds, no guarding or rigidity. EXTREMITIES: No clubbing, no edema, no cyanosis, 2+ pulses and upper and lower extremities. MUSCULOSKELETAL: Muscle strength and tone normal. SPINE: No scoliosis or deformity SKIN: No rashes CENTRAL NERVOUS SYSTEM: No focal deficits, tone is normal in all 4 extremities. PSYCHIATRIC: Alert and oriented -3. Appropriate affect. Intact judgment and insight. - Labs CBC & Chem 7: 05/16/21 17:07 05/16/21 17:07 Labs: Abnormal Lab Results - Last 24 Hours (Table) 05/17/21 05/18/21 05/18/21 Range/Units 21:42 07:00 11:49 POC Glucose (mg/dL) 398 H 157 H 200 H (75-99) mg/dL 05/18/21 Range/Units 16:45 POC Glucose (mg/dL) 244 H (75-99) mg/dL Assessment and Plan Assessment: 1 Acute hypoxic respiratory failure related to COVID-19 pneumonia, patient presented to the emergency department after 10 day history of symptoms, tested positive on 05/10/2021. She is not vaccinated against COVID-19. Patient outside the window for Remdesivir, she continues on supportive medical care with Decadron, prophylactic Lovenox and multivitamins 2 Hypertension 3 Hyperlipidemia 4 Diabetes mellitus II 5 Hypothyroidism 6 Depression 7 Lifetime nonsmoker Plan: The patient was seen and evaluated by Dr. Carter Continue Lovenox, Decadron, vitamin supplements Titrate the O2 as tolerated Follow-up chest x-ray and labs in the a.m. We will continue to follow I, the cosigning physician, performed a history & physical examination of the patient. Lungs sounds with bibasilar crackles. Maintaining good O2 saturations in the 90s on 4 L/m per nasal cannula. I discussed the assessment and plan of care with my nurse practitioner, Kanchan Craig. I attest to the above note as dictated by her.
--- NOTE | 2021-05-18 19:42 | P.PN ---
Subjective This is a pleasant 50 years old female with past medical history of Diabetes Mellitus, Hyperlipidemia, Hypertension, hypothyroidism. She is a patient of Dr. Jack. She also sees Dr. Miller for her diabetes and she has history of arthritis. She presents with shortness of breath and hypoxia. Patient states that she's been diagnosed with [place] 19 infection last Wednesday about one week ago, and she's been complaining from dyspnea like this since the Tuesdays before about 10 days ago. Her shortness of breath was not getting better so she decided to come to emergency room. She has dry cough with no phlegm. No chest pain She had some diarrhea but stopped. No urinary symptoms or difficulty moving his arms or legs. No abdominal pain. She denies smoking, alcohol or illicit drugs She denies doing a test she stated that she has ablation and her has been fixed. No home oxygen Patient afebrile on admission however she was hypoxic at 86% on room air, currently she is saturating 91% on 4 L oxygen per minute Labs reviewed, CBC and INR and BMP are unremarkable. Glucose elevated to 37- 307. Liver enzymes mildly elevated AST slightly elevated at 90 and ALT at 104. Bilirubin is normal at 0.6. He did with ferritin 738, lactate dehydrogenase 1216 and C-reactive protein 18.6. Calcitonin is normal at 0.05. EKG showing normal sinus rhythm at [address]-T changes Chest x-ray: Bilateral interstitial pneumonia 05/18/2021 Patient is stable respiratory status at 4 L/m with no much dyspnea at rest. Her glucose is better after starting Levemir 13 units. Also continued on home dose of metformin, Amaryl and Actos. She remains on dexamethasone and multiple vitamins. We will keep monitoring for now with same treatment Objective - Vital Signs Vital signs: Vital Signs Temp 98 F 05/18/21 09:24 Pulse 68 05/18/21 09:24 Resp 17 05/18/21 09:24 BP 117/71 05/18/21 09:24 Pulse Ox 94 L 05/18/21 09:24 Intake & Output 05/17/21 05/18/21 05/18/21 18:59 06:59 18:59 Intake Total 160 400 Balance 160 400 Intake: Intake, IV Titration 160 Amount Sodium Chloride 0.9% 1, 160 000 ml @ 20 mls/hr IV . Q24H [facility] Rx#:[id number] Oral 400 Other: Voiding Method Toilet - Labs CBC & Chem 7: 05/16/21 17:07 05/16/21 17:07 Labs: Abnormal Lab Results - Last 24 Hours (Table) 05/17/21 05/17/21 05/18/21 Range/Units 16:17 21:42 07:00 POC Glucose (mg/dL) 476 H 398 H 157 H (75-99) mg/dL 05/18/21 Range/Units 11:49 POC Glucose (mg/dL) 200 H (75-99) mg/dL
[2021-05-18 20:49] LABS: Glucose,Whole Blood 298 mg/dL (75-99)
[2021-05-18] MEDS: INSULIN DETEMIR (LEVEMIR) 100 UNIT/ML SYR SQ SCH (21:27)
[2021-05-19] MEDS: LEVOTHYROXINE 137 MCG TAB PO SCH (06:26)
[2021-05-19 07:12] LABS: Glucose,Whole Blood 90 mg/dL (75-99)
[2021-05-19] MEDS: INSULIN ASPART (NovoLOG) 100 UNIT/ML VIAL SQ SCH ×4 (08:39→20:18)
[2021-05-19] MEDS: DEXAMETHASONE SOD PHOSPHATE 10 MG/ML 1 ML VIAL IVP SCH (08:43)
[2021-05-19] MEDS: ENOXAPARIN 40 MG/0.4 ML SYRINGE SQ SCH (09:01)
[2021-05-19] MEDS: LOSARTAN 50 MG TAB PO SCH (09:01)
[2021-05-19] MEDS: MAGNESIUM OXIDE 400 MG TAB PO SCH (09:01)
[2021-05-19] MEDS: ASCORBIC ACID 500 MG TAB PO SCH (09:01)
[2021-05-19] MEDS: GABAPENTIN 300 MG CAP PO SCH ×3 (09:02→22:11)
[2021-05-19] MEDS: metFORMIN 500 MG TAB PO SCH ×2 (09:02→17:15)
[2021-05-19] MEDS: MULTIVITAMINS, THERA 1 EACH TAB PO SCH (09:02)
[2021-05-19] MEDS: ATORVASTATIN 40 MG TAB PO SCH (09:02)
[2021-05-19] MEDS: ZINC SULFATE 220 MG CAP PO SCH (09:02)
[2021-05-19] MEDS: SERTRALINE 100 MG TAB PO SCH (09:02)
[2021-05-19] MEDS: ASPIRIN 81 MG PO SCH (09:03)
[2021-05-19] MEDS: FUROSEMIDE 20 MG TAB PO SCH (09:03)
[2021-05-19] MEDS: FAMOTIDINE 20 MG TAB PO SCH (09:03)
[2021-05-19] MEDS: SERTRALINE 50 MG TAB PO SCH (09:03)
[2021-05-19] MEDS: ARIPiprazole 5 MG TAB PO SCH (09:05)
[2021-05-19] MEDS: GLIMEPIRIDE 4 MG TAB PO SCH (09:05)
[2021-05-19] MEDS: CHOLECALCIFEROL 125 MCG (5000 IU) TABLET PO SCH (09:05)
[2021-05-19] MEDS: PIOGLITAZONE 30 MG TAB PO SCH (09:06)
--- NOTE | 2021-05-19 09:27 | XR ---
EXAMINATION TYPE: XR chest 1V portable DATE OF EXAM: 05/19/2021 COMPARISON: 05/16/2021 HISTORY: Cough TECHNIQUE: Single frontal view of the chest is obtained. FINDINGS: Interstitial infiltrate stable. No pleural effusion. Heart size normal. No pneumothorax. O sseous structures intact. IMPRESSION: Stable bilateral interstitial infiltrates.
[2021-05-19 11:23] LABS: C Reactive Protein 2.2 mg/dL (0.00-0.80)
[2021-05-19 11:54] LABS: Glucose,Whole Blood 183 mg/dL (75-99)
--- NOTE | 2021-05-19 13:44 | P.PN ---
Subjective Progress Note Date: 05/19/21 This is a 50-year-old white female patient with past history of hypertension, hyperlipidemia, diabetes mellitus type 2, hypothyroidism who follows with Dr. Jack. The patient presented to the emergency department on 05/16/2021 requesting infusion of monoclonal antibodies. She was sent in by her PCP. She has had COVID 19 symptoms for 10 days prior to coming in. She tested positive for COVID-19 on 05/10/2021. She is not vaccinated against COVID-19. She reports increased shortness of breath for about a week, cough. She reports being very fatigued. She states she was tested for COVID-19 twice on outpatient basis and was negative. Chest x-ray shows bilateral interstitial pneumonia, small right pleural effusion. Admission labs show white blood cell count of 7.8, hemoglobin of 14.5, platelet count is 504, INR is 1.0, electrolytes and renal profile were within normal limits, ferritin level is 738, AST was 90, ALT was 104, LDH was 1216, troponin was less than 0.012, CRP was 18.6. Patient was given a dose of Decadron in the emergency department, as started on maintenance Decadron 6 mg IV push daily, she is on prophylactic Lovenox, pro-calcitonin level was negative at 0.05. She is currently on 4 L of oxygen pulse ox is 91-93%. The patient is seen today 05/18/2021 in follow-up on the regular medical floor. She is currently resting comfortably in bed. Awake and alert in no acute distress. She is maintaining O2 saturations in the 90s on 4 L/m per nasal cannula. No IV fluids. Blood glucose 244. She is continued on Decadron, Lovenox, vitamin supplements. [id number], the patient is being seen for a follow-up. The patient is a 50-year-old female with COVID 19 related pneumonia in addition to hypertension, hyperlipidemia and diabetes mellitus type 2 and hypothyroidism. The patient is not vaccinated. The patient is currently on 4 L of oxygen by nasal cannula. The patient is on Decadron 6 mg IVThe patient has a d-dimer of 0.69, LDH level is down to 262 and a CRP level is down to 2.2. Repeat chest x-ray showed stable bilateral pulmonary infiltrates consistent with COVID 19 related pneumonia. No interval change on today's chest x-ray compared to the earlier one done on 05/16/2021. Objective - Vital Signs Vital signs: Vital Signs Temp 98.5 F 05/19/21 10:00 Pulse 55 L 05/19/21 10:00 Resp 19 05/19/21 10:00 BP 117/75 05/19/21 10:00 Pulse Ox 95 05/19/21 10:00 Intake & Output 05/18/21 05/19/21 05/19/21 18:59 06:59 18:59 Intake Total 300 Balance 300 Intake: Oral 300 Other: Voiding Method Toilet # Voids 3 - Exam GENERAL EXAM: Alert, active, white female, on 4 L of oxygen the pulse ox of 94% comfortable in no apparent distress. HEAD: Normocephalic/atraumatic. EYES: Normal reaction of pupils, equal size. Conjunctiva pink, sclera white. NOSE: Clear with pink turbinates. THROAT: No erythema or exudates. NECK: No masses, no JVD, no thyroid enlargement, no adenopathy. CHEST: No chest wall deformity. Symmetrical expansion. LUNGS: Equal air entry with bibasilar crackles CVS: Regular rate and rhythm, normal S1 and S2, no gallops, no murmurs, no rubs ABDOMEN: Soft, nontender. No hepatosplenomegaly, normal bowel sounds, no guarding or rigidity. EXTREMITIES: No clubbing, no edema, no cyanosis, 2+ pulses and upper and lower extremities. MUSCULOSKELETAL: Muscle strength and tone normal. SPINE: No scoliosis or deformity SKIN: No rashes CENTRAL NERVOUS SYSTEM: No focal deficits, tone is normal in all 4 extremities. PSYCHIATRIC: Alert and oriented -3. Appropriate affect. Intact judgment and insight. - Labs CBC & Chem 7: 05/16/21 17:07 05/16/21 17:07 Labs: Abnormal Lab Results - Last 24 Hours (Table) 05/18/21 05/18/21 05/19/21 Range/Units 16:45 20:47 06:23 D-Dimer 0.69 H (<0.60) mg/L FEU POC Glucose (mg/dL) 244 H 298 H (75-99) mg/dL Lactate Dehydrogenase (120-246) U/L C-Reactive Protein (0.00-0.80) mg/dL 05/19/21 05/19/21 Range/Units 06:23 11:52 D-Dimer (<0.60) mg/L FEU POC Glucose (mg/dL) 183 H (75-99) mg/dL Lactate Dehydrogenase 262 H (120-246) U/L C-Reactive Protein 2.20 H (0.00-0.80) mg/dL Assessment and Plan Plan: 1 Acute hypoxic respiratory failure related to COVID-19 pneumonia, patient presented to the emergency department after 10 day history of symptoms, tested positive on 05/10/2021. She is not vaccinated against COVID-19. Patient outside the window for Remdesivir, she continues on supportive medical care with Decadron, prophylactic Lovenox and multivitamins in a stable and the patient did drop in the inflammatory markers on today's blood work. 2 Hypertension 3 Hyperlipidemia 4 Diabetes mellitus II 5 Hypothyroidism 6 Depression 7 Lifetime nonsmoker Plan: The patient clinically stable on 4 L about 2 by nasal cannula. Extremity markers are improving. The chest is also stable. Continue Lovenox, Decadron, vitamin supplements Titrate the O2 as tolerated Follow-up chest x-ray was reviewed We will continue to follow
[2021-05-19 16:53] LABS: Glucose,Whole Blood 230 mg/dL (75-99)
[2021-05-19] MEDS: SODIUM CHLORIDE 0.9% 1,000 ML IV SCH (17:15)
[2021-05-19 20:08] LABS: Glucose,Whole Blood 210 mg/dL (75-99)
[2021-05-19] MEDS: INSULIN DETEMIR (LEVEMIR) 100 UNIT/ML SYR SQ SCH (20:18)
[2021-05-20] MEDS: LEVOTHYROXINE 137 MCG TAB PO SCH (06:17)
--- NOTE | 2021-05-20 06:23 | P.PN ---
Subjective This is a pleasant 50 years old female with past medical history of Diabetes Mellitus, Hyperlipidemia, Hypertension, hypothyroidism. She is a patient of Dr. Jack. She also sees Dr. Miller for her diabetes and she has history of arthritis. She presents with shortness of breath and hypoxia. Patient states that she's been diagnosed with [place] 19 infection last Wednesday about one week ago, and she's been complaining from dyspnea like this since the Tuesdays before about 10 days ago. Her shortness of breath was not getting better so she decided to come to emergency room. She has dry cough with no phlegm. No chest pain She had some diarrhea but stopped. No urinary symptoms or difficulty moving his arms or legs. No abdominal pain. She denies smoking, alcohol or illicit drugs She denies doing a test she stated that she has ablation and her has been fixed. No home oxygen Patient afebrile on admission however she was hypoxic at 86% on room air, currently she is saturating 91% on 4 L oxygen per minute Labs reviewed, CBC and INR and BMP are unremarkable. Glucose elevated to 37- 307. Liver enzymes mildly elevated AST slightly elevated at 90 and ALT at 104. Bilirubin is normal at 0.6. He did with ferritin 738, lactate dehydrogenase 1216 and C-reactive protein 18.6. Calcitonin is normal at 0.05. EKG showing normal sinus rhythm at [address]-T changes Chest x-ray: Bilateral interstitial pneumonia 05/18/2021 Patient is stable respiratory status at 4 L/m with no much dyspnea at rest. Her glucose is better after starting Levemir 13 units. Also continued on home dose of metformin, Amaryl and Actos. She remains on dexamethasone and multiple vitamins. We will keep monitoring for now with same treatment 05/19/2021 Patient is awake and alert. She states improvement in her breathing pattern. Her oxygen requirement lower 4 down to 2 L/m Continue with copious treatment with multiple vitamins and dexamethasone. Chest x-ray shows stable bilateral infiltrates. Decreased Levemir 50 units at bedtime from tomorrow 05/20 Objective - Vital Signs Vital signs: Vital Signs Temp 97.9 F 05/19/21 06:55 Pulse 57 L 05/19/21 06:55 Resp 14 05/19/21 02:00 BP 105/68 05/19/21 06:55 Pulse Ox 97 05/19/21 06:55 Intake & Output 05/18/21 05/19/21 05/19/21 18:59 06:59 18:59 Intake Total 300 Balance 300 Intake: Oral 300 Other: Voiding Method Toilet # Voids 3 - Exam -GENERAL: The patient is alert and oriented x3, not in any acute distress obese HEENT: Pupils are round and equally reacting to light. EOMI. No scleral icterus. No conjunctival pallor. Normocephalic, atraumatic. No pharyngeal erythema. No thyromegaly. CARDIOVASCULAR: S1 and S2 present. No murmurs, rubs, or gallops. PULMONARY: Chest is clear to auscultation, no wheezing or crackles. ABDOMEN: Soft, nontender, nondistended, normoactive bowel sounds. No palpable organomegaly. MUSCULOSKELETAL: No joint swelling or deformity. EXTREMITIES: No cyanosis, clubbing, or pedal edema. NEUROLOGICAL: Gross neurological examination did not reveal any focal deficits. SKIN: No rashes. no petechiae. - Labs CBC & Chem 7: 05/16/21 17:07 05/16/21 17:07 Labs: Abnormal Lab Results - Last 24 Hours (Table) 05/18/21 05/18/21 05/18/21 Range/Units 11:49 16:45 20:47 D-Dimer (<0.60) mg/L FEU POC Glucose (mg/dL) 200 H 244 H 298 H (75-99) mg/dL 05/19/21 Range/Units 06:23 D-Dimer 0.69 H (<0.60) mg/L FEU POC Glucose (mg/dL) (75-99) mg/dL Assessment and Plan Assessment: Bilateral Covid pneumonia Acute hypoxic respiratory failure Increased inflammatory markers monthly Mildly elevated liver enzymes mostly likely secondary to Covid infection Diabetes mellitus Hypertension Hyperlipidemia Morbid obesity with BMI 44.6 Diabetic neuropathy History of bilateral knee arthritis Plan: this Is a pleasant 50 years old female who presents with covid pneumonia Continue with dexamethasone Continue with vitamin C, vitamin D and zinc Pulmonary consult Labs and medication were reviewed.. Continue same treatment. Continue with symptomatic treatment. Resume home medication. Monitor lytes and vitals. DVT and GI prophylaxis. Further recommendations depends on the clinical course of the patient DVT prophylaxis: Subcutaneous Lovenox GI Prophylaxis: Pepcid Prognosis is guarded
[2021-05-20 07:07] LABS: Glucose,Whole Blood 66 mg/dL (75-99)
[2021-05-20] MEDS: INSULIN ASPART (NovoLOG) 100 UNIT/ML VIAL SQ SCH ×4 (07:07→22:05)
[2021-05-20] MEDS: DEXAMETHASONE SOD PHOSPHATE 10 MG/ML 1 ML VIAL IVP SCH (07:24)
[2021-05-20] MEDS: ENOXAPARIN 40 MG/0.4 ML SYRINGE SQ SCH (07:24)
[2021-05-20] MEDS: MULTIVITAMINS, THERA 1 EACH TAB PO SCH (07:25)
[2021-05-20] MEDS: metFORMIN 500 MG TAB PO SCH ×2 (07:25→17:53)
[2021-05-20] MEDS: LOSARTAN 50 MG TAB PO SCH (07:25)
[2021-05-20] MEDS: SERTRALINE 50 MG TAB PO SCH (07:25)
[2021-05-20] MEDS: GABAPENTIN 300 MG CAP PO SCH ×3 (07:25→22:05)
[2021-05-20] MEDS: FUROSEMIDE 20 MG TAB PO SCH (07:25)
[2021-05-20] MEDS: FAMOTIDINE 20 MG TAB PO SCH (07:25)
[2021-05-20] MEDS: SERTRALINE 100 MG TAB PO SCH (07:25)
[2021-05-20] MEDS: ASPIRIN 81 MG PO SCH (07:25)
[2021-05-20] MEDS: MAGNESIUM OXIDE 400 MG TAB PO SCH (07:25)
[2021-05-20] MEDS: ATORVASTATIN 40 MG TAB PO SCH (07:25)
[2021-05-20] MEDS: ZINC SULFATE 220 MG CAP PO SCH (07:25)
[2021-05-20] MEDS: PIOGLITAZONE 30 MG TAB PO SCH (07:26)
[2021-05-20] MEDS: ASCORBIC ACID 500 MG TAB PO SCH (07:26)
[2021-05-20] MEDS: GLIMEPIRIDE 4 MG TAB PO SCH (07:26)
[2021-05-20] MEDS: ARIPiprazole 5 MG TAB PO SCH (07:26)
[2021-05-20] MEDS: CHOLECALCIFEROL 125 MCG (5000 IU) TABLET PO SCH (07:26)
[2021-05-20 07:49] LABS: Glucose,Whole Blood 112 mg/dL (75-99)
[2021-05-20 11:37] LABS: Glucose,Whole Blood 156 mg/dL (75-99)
--- NOTE | 2021-05-20 13:25 | P.PN ---
Subjective Progress Note Date: 05/20/21 This is a 50-year-old white female patient with past history of hypertension, hyperlipidemia, diabetes mellitus type 2, hypothyroidism who follows with Dr. Jack. The patient presented to the emergency department on 05/16/2021 requesting infusion of monoclonal antibodies. She was sent in by her PCP. She has had COVID 19 symptoms for 10 days prior to coming in. She tested positive for COVID-19 on 05/10/2021. She is not vaccinated against COVID-19. She reports increased shortness of breath for about a week, cough. She reports being very fatigued. She states she was tested for COVID-19 twice on outpatient basis and was negative. Chest x-ray shows bilateral interstitial pneumonia, small right pleural effusion. Admission labs show white blood cell count of 7.8, hemoglobin of 14.5, platelet count is 504, INR is 1.0, electrolytes and renal profile were within normal limits, ferritin level is 738, AST was 90, ALT was 104, LDH was 1216, troponin was less than 0.012, CRP was 18.6. Patient was given a dose of Decadron in the emergency department, as started on maintenance Decadron 6 mg IV push daily, she is on prophylactic Lovenox, pro-calcitonin level was negative at 0.05. She is currently on 4 L of oxygen pulse ox is 91-93%. The patient is seen today 05/18/2021 in follow-up on the regular medical floor. She is currently resting comfortably in bed. Awake and alert in no acute distress. She is maintaining O2 saturations in the 90s on 4 L/m per nasal cannula. No IV fluids. Blood glucose 244. She is continued on Decadron, Lovenox, vitamin supplements. 2020, the patient is being seen for a follow-up. The patient is a 50-year-old female with COVID 19 related pneumonia in addition to hypertension, hyperlipidemia and diabetes mellitus type 2 and hypothyroidism. The patient is not vaccinated. The patient is currently on 4 L of oxygen by nasal cannula. Th e patient is on Decadron 6 mg IVThe patient has a d-dimer of 0.69, LDH level is down to 262 and a CRP level is down to 2.2. Repeat chest x-ray showed stable bilateral pulmonary infiltrates consistent with COVID 19 related pneumonia. No interval change on today's chest x-ray compared to the earlier one done on 05/16/2021. On 05/20/2021, patient is on room air oxygen and the pulse is ranging between 90-93%. The patient remains on Decadron. Patient is scheduled. As mentioned earlier, patient is significant drop in the bilateral markers including LDH and CRP while on treatment. The patient did not receive Indocin. The patient was outside the window for that treatment. No new labs from today. The patient is still on Lovenox 4 mg subcu for DVT prophylaxis. The patient is also receiving Levemir insulin 15 units daily at bedtime in addition to sliding scale coverage. Objective - Vital Signs Vital signs: Vital Signs Temp 97.9 F 05/20/21 05:46 Pulse 69 05/20/21 10:19 Resp 18 05/20/21 10:19 BP 98/66 05/20/21 10:19 Pulse Ox 92 L 05/20/21 12:35 Intake & Output 05/19/21 05/20/21 05/20/21 18:59 06:59 18:59 Other: # Voids 3 1 # Bowel Movements 1 - Exam GENERAL EXAM: Alert, active, white female, on RA oxygen the pulse ox of 94% comfortable in no apparent distress. HEAD: Normocephalic/atraumatic. EYES: Normal reaction of pupils, equal size. Conjunctiva pink, sclera white. NOSE: Clear with pink turbinates. THROAT: No erythema or exudates. NECK: No masses, no JVD, no thyroid enlargement, no adenopathy. CHEST: No chest wall deformity. Symmetrical expansion. LUNGS: Equal air entry with bibasilar crackles CVS: Regular rate and rhythm, normal S1 and S2, no gallops, no murmurs, no rubs ABDOMEN: Soft, nontender. No hepatosplenomegaly, normal bowel sounds, no guarding or rigidity. EXTREMITIES: No clubbing, no edema, no cyanosis, 2+ pulses and upper and lower extremities. MUSCULOSKELETAL: Muscle strength and tone normal. SPINE: No scoliosis or deformity SKIN: No rashes CENTRAL NERVOUS SYSTEM: No focal deficits, tone is normal in all 4 extremities. PSYCHIATRIC: Alert and oriented -3. Appropriate affect. Intact judgment and i nsight. - Labs CBC & Chem 7: 05/16/21 17:07 05/16/21 17:07 Labs: Abnormal Lab Results - Last 24 Hours (Table) 05/19/21 05/19/21 05/20/21 Range/Units 16:52 20:06 07:05 POC Glucose (mg/dL) 230 H 210 H 66 L (75-99) mg/dL 05/20/21 05/20/21 Range/Units 07:48 11:36 POC Glucose (mg/dL) 112 H 156 H (75-99) mg/dL Assessment and Plan Plan: 1 Acute hypoxic respiratory failure related to COVID-19 pneumonia, patient presented to the emergency department after 10 day history of symptoms, tested positive on 05/10/2021. She is not vaccinated against COVID-19. Patient outside the window for Remdesivir, she continues on supportive medical care with Decadron, prophylactic Lovenox and multivitamins in a stable and the patient did drop in the inflammatory markers on today's blood work. Clinically improved currently on room air oxygen 2 Hypertension 3 Hyperlipidemia 4 Diabetes mellitus II 5 Hypothyroidism 6 Depression 7 Lifetime nonsmoker Plan: The patient clinically improved on room air oxygen. Inflammatory markers and also drop. Continue Lovenox, Decadron, vitamin supplements Keep the patient in the hospital for today and the patient's oxygenation will be assessed We will continue to follow, possible discharge in a.m.
[2021-05-20 16:34] LABS: Glucose,Whole Blood 196 mg/dL (75-99)
[2021-05-20] MEDS: SODIUM CHLORIDE 0.9% 1,000 ML IV SCH (17:53)
[2021-05-20 20:53] LABS: Glucose,Whole Blood 156 mg/dL (75-99)
[2021-05-20] MEDS ORDERED: INSULIN DETEMIR (LEVEMIR) 100 UNIT/ML SYR SQ SCH (21:00)
[2021-05-21] MEDS: LEVOTHYROXINE 137 MCG TAB PO SCH (05:44)
[2021-05-21 07:12] LABS: Glucose,Whole Blood 88 mg/dL (75-99)
[2021-05-21] MEDS: INSULIN ASPART (NovoLOG) 100 UNIT/ML VIAL SQ SCH ×2 (07:31→12:42)
[2021-05-21] MEDS: ENOXAPARIN 40 MG/0.4 ML SYRINGE SQ SCH (08:35)
[2021-05-21] MEDS: DEXAMETHASONE SOD PHOSPHATE 10 MG/ML 1 ML VIAL IVP SCH (08:35)
[2021-05-21] MEDS: PIOGLITAZONE 30 MG TAB PO SCH (08:35)
[2021-05-21] MEDS: CHOLECALCIFEROL 125 MCG (5000 IU) TABLET PO SCH (08:36)
[2021-05-21] MEDS: LOSARTAN 50 MG TAB PO SCH (08:36)
[2021-05-21] MEDS: ATORVASTATIN 40 MG TAB PO SCH (08:36)
[2021-05-21] MEDS: ASCORBIC ACID 500 MG TAB PO SCH (08:36)
[2021-05-21] MEDS: SERTRALINE 50 MG TAB PO SCH (08:36)
[2021-05-21] MEDS: SERTRALINE 100 MG TAB PO SCH (08:36)
[2021-05-21] MEDS: MAGNESIUM OXIDE 400 MG TAB PO SCH (08:36)
[2021-05-21] MEDS: GABAPENTIN 300 MG CAP PO SCH ×2 (08:36→15:36)
[2021-05-21] MEDS: GLIMEPIRIDE 4 MG TAB PO SCH (08:36)
[2021-05-21] MEDS: metFORMIN 500 MG TAB PO SCH (08:36)
[2021-05-21] MEDS: ARIPiprazole 5 MG TAB PO SCH (08:36)
[2021-05-21] MEDS: FUROSEMIDE 20 MG TAB PO SCH (08:36)
[2021-05-21] MEDS: FAMOTIDINE 20 MG TAB PO SCH (08:36)
[2021-05-21] MEDS: MULTIVITAMINS, THERA 1 EACH TAB PO SCH (08:36)
[2021-05-21] MEDS: ZINC SULFATE 220 MG CAP PO SCH (08:36)
[2021-05-21] MEDS: ASPIRIN 81 MG PO SCH (08:36)
[2021-05-21 10:05] VITALS: RESP 18; TEMP 97.6
[2021-05-21 11:38] LABS: Basophils # (A) 0.02 X 10*3/uL (0.00-0.10); Basophils % (A) 0.2 %; Eosinophils # (A) 0.12 X 10*3/uL (0.04-0.35); HCT 42.6 % (37.2-46.3); HGB 13.1 g/dL (12.0-15.0); Lymphocytes # (A) 3.26 X 10*3/uL (0.90-5.00); Lymphocytes % (A) 26.8 %; MCH 28.2 pg (27.0-32.0); MCHC 30.8 g/dL (32.0-37.0); MCV 91.6 fL (80.0-97.0); Monocytes % (A) 8.2 %; Neutrophils # (A) 7.65 X 10*3/uL (1.80-7.70); Neutrophils % (A) 62.7 %; Platelet Count 722 X 10*3/uL (140-440); RBC 4.65 X 10*6/uL (4.10-5.20); RDW 14.3 % (11.5-14.5); WBC 12.18 X 10*3/uL (4.50-10.00)
[2021-05-21 11:40] LABS: Glucose,Whole Blood 192 mg/dL (75-99)
[2021-05-21 12:02] LABS: African American GFR (CKD) 115.5 (60.0-200.0); Anion Gap 13.5 mmol/L (10.00-18.00); BUN/Creat Ratio 37.57 Ratio (12.00-20.00); Blood Urea Nitrogen 26.3 mg/dL (9.0-27.0); Calcium 9.1 mg/dL (8.7-10.3); Carbon Dioxide 26.5 mmol/L (20.0-27.5); Non-African American GFR(CKD) 99.6 (60.0-200.0); Potassium 4.1 mmol/L (3.5-5.5)
[2021-05-21 14:20] VITALS: BP 111/77; PULSE 83
--- NOTE | 2021-05-21 16:21 | P.PN ---
Subjective Progress Note Date: 05/21/21 Principal diagnosis: Dyspnea This is a 50-year-old white female patient with past history of hypertension, hyperlipidemia, diabetes mellitus type 2, hypothyroidism who follows with Dr. Jack. The patient presented to the emergency department on 05/16/2021 requesting infusion of monoclonal antibodies. She was sent in by her PCP. She has had COVID 19 symptoms for 10 days prior to coming in. She tested positive for COVID-19 on 05/10/2021. She is not vaccinated against COVID-19. She reports increased shortness of breath for about a week, cough. She reports being very fatigued. She states she was tested for COVID-19 twice on outpatient basis and was negative. Chest x-ray shows bilateral interstitial pneumonia, small right pleural effusion. Admission labs show white blood cell count of 7.8, hemoglobin of 14.5, platelet count is 504, INR is 1.0, electrolytes and renal profile were within normal limits, ferritin level is 738, AST was 90, ALT was 104, LDH was 1216, troponin was less than 0.012, CRP was 18.6. Patient was given a dose of Decadron in the emergency department, as started on maintenance Decadron 6 mg IV push daily, she is on prophylactic Lovenox, pro-calcitonin level was negative at 0.05. She is currently on 4 L of oxygen pulse ox is 91-93%. The patient is seen today 05/18/2021 in follow-up on the regular medical floor. She is currently resting comfortably in bed. Awake and alert in no acute distress. She is maintaining O2 saturations in the 90s on 4 L/m per nasal cannula. No IV fluids. Blood glucose 244. She is continued on Decadron, Lovenox, vitamin supplements. 2020, the patient is being seen for a follow-up. The patient is a 50-year-old female with COVID 19 related pneumonia in addition to hypertension, hyperlipidemia and diabetes mellitus type 2 and hypothyroidism. The patient is not vaccinated. The patient is currently on 4 L of oxygen by nasal cannula. The patient is on Decadron 6 mg IVThe patient has a d-dimer of 0.69, LDH level is down to 262 and a CRP level is down to 2.2. Repeat chest x-ray showed stable bilateral pulmonary infiltrates consistent with COVID 19 related pneumonia. No interval change on today's chest x-ray compared to the earlier one done on 05/16/2021. On 05/20/2021, patient is on room air oxygen and the pulse is ranging between 90-93%. The patient remains on Decadron. Patient is scheduled. As mentioned earlier, patient is significant drop in the bilateral markers including LDH and CRP while on treatment. The patient did not receive Indocin. The patient was outside the window for that treatment. No new labs from today. The patient is still on Lovenox 4 mg subcu for DVT prophylaxis. The patient is also receiving Levemir insulin 15 units daily at bedtime in addition to sliding scale coverage. On 05/21/2021 patient seen in follow-up on medical surgical floor. She states she is significantly improved, breathing much easier, she is on room air with pulse ox of 92-94%, breathing comfortably, afebrile, hemodynamically she stable, she has had no acute events overnight, her last chest x-ray from 05/19/2021 showed stable bilateral interstitial infiltrates. No pleural effusion, no pneumothorax, today's labs have been reviewed, her white blood cell count is 12.18, hemoglobin is 13.1, last d-dimer was 0.69, electrolytes and renal profile were within normal limits, LDH on 05/19/2021 was significantly improved compared the admission level at 1216, CRP was down to 2.2. Patient remains on Decadron 6 mg IV push daily, Lovenox at prophylactic dose, she is tolerating oral intake, no nausea vomiting, no abdominal pain, no worsening dyspnea, no worsening cough. No chest pain. Diarrhea has resolved. Objective - Vital Signs Vital signs: Vital Signs Temp 97.6 F 05/21/21 14:19 Pulse 83 05/21/21 14:19 Resp 18 05/21/21 14:19 BP 111/77 05/21/21 14:19 Pulse Ox 92 L 05/21/21 14:19 Intake & Output 05/20/21 05/21/21 05/21/21 18:59 06:59 18:59 Intake Total 480 Balance 480 Intake: Oral 480 Other: # Bowel Movements 1 - Exam GENERAL EXAM: Alert, very pleasant, 50-year-old white female, on room air, with a pulse ox between 92-94% comfortable in no apparent distress. HEAD: Normocephalic/atraumatic. EYES: Normal reaction of pupils, equal size. Conjunctiva pink, sclera white. NOSE: Clear with pink turbinates. THROAT: No erythema or exudates. NECK: No masses, no JVD, no thyroid enlargement, no adenopathy. CHEST: No chest wall deformity. Symmetrical expansion. LUNGS: Equal air entry with mild bibasilar crackles CVS: Regular rate and rhythm, normal S1 and S2, no gallops, no murmurs, no rubs ABDOMEN: Soft, nontender. No hepatosplenomegaly, normal bowel sounds, no guarding or rigidity. EXTREMITIES: No clubbing, no edema, no cyanosis, 2+ pulses and upper and lower extremities. MUSCULOSKELETAL: Muscle strength and tone normal. SPINE: No scoliosis or deformity SKIN: No rashes CENTRAL NERVOUS SYSTEM: Alert and oriented -3. No focal deficits, tone is normal in all 4 extremities. PSYCHIATRIC: Alert and oriented -3. Appropriate affect. Intact judgment and insight. - Labs CBC & Chem 7: 05/21/21 06:27 05/21/21 06:27 Labs: Abnormal Lab Results - Last 24 Hours (Table) 05/20/21 05/20/21 05/21/21 Range/Units 16:33 20:51 06:27 WBC 12.18 H (4.50-10.00) X 10*3/uL MCHC 30.8 L (32.0-37.0) g/dL Plt Count 722 H (140-440) X 10*3/uL MPV 9.0 L (9.5-12.2) fL Immature Gran # 0.13 H (0.00-0.04) X 10*3/uL BUN/Creatinine Ratio (12.00-20.00) Ratio POC Glucose (mg/dL) 196 H 156 H (75-99) mg/dL 05/21/21 05/21/21 Range/Units 06:27 11:38 WBC (4.50-10.00) X 10*3/uL MCHC (32.0-37.0) g/dL Plt Count (140-440) X 10*3/uL MPV (9.5-12.2) fL Immature Gran # (0.00-0.04) X 10*3/uL BUN/Creatinine Ratio 37.57 H (12.00-20.00) Ratio POC Glucose (mg/dL) 192 H (75-99) mg/dL Assessment and Plan Plan: Assessment: #1. Acute hypoxic respiratory failure related to COVID-19 pneumonia, patient presented to the emergency department after 10 day history of symptoms, tested positive on 05/10/2021. She is not vaccinated against COVID-19. Patient outside the window for Remdesivir, she continues on supportive medical care with Decadron, prophylactic Lovenox and multivitamins. Patient clinically improved, and is currently on room air #2. Hypertension #3. Hyperlipidemia #4. Diabetes mellitus II #5. Hypothyroidism #6. Depression #7. Lifetime nonsmoker Plan: Continue patient responded very well to inpatient treatments with the combination of Decadron, prophylactic anticoagulation and multivitamins Is currently on room air, she's had no acute events overnight She is tolerating activity, tolerating ambulation Labs have been reviewed, inflammatory markers are improving since admission Overall patient is feeling better Diarrhea has resolved She is tolerating oral intake Stable for discharge home today Chief complaint outpatient course of oral Decadron for a total of 10 days Outpatient follow-up with Dr. Silverman in the office in 2 weeks I performed a history & physical examination of the patient and discussed their management with my nurse practitioner, Marta Cedeno. I reviewed the nurse practitioner's note and agree with the documented findings and plan of care. Lung sounds are positive for diminished breath sounds throughout the lung guevara. The findings and the impression was discussed with the patient. I attest to the documentation by the nurse practitioner. Time with Patient: Less than 30
== END 2021-05-21 16:05 | disposition home or self-care (01) | DRG 177 ==
LOC: EC 16:00 → 4SSUR 18:06
PROVIDERS: ADMIT Hospitalist; ATTEND Hospitalist
PROC: 3E0333Z Introduction of Anti-inflammatory into Peripheral Vein, Percutaneous Approach (ICD-10-PCS; principal; 2021-05-16)
DX: U07.1 COVID-19 (principal); J12.82 Pneumonia due to coronavirus disease 2019; J96.01 Acute respiratory failure with hypoxia; Z68.41 Body mass index [BMI] 40.0-44.9, adult; E03.9 Hypothyroidism, unspecified; E11.40 Type 2 diabetes mellitus with diabetic neuropathy, unspecified; E66.01 Morbid (severe) obesity due to excess calories; E78.5 Hyperlipidemia, unspecified; F32.A Depression, unspecified; I10 Essential (primary) hypertension; M17.0 Bilateral primary osteoarthritis of knee; Z79.82 Long term (current) use of aspirin; Z79.84 Long term (current) use of oral hypoglycemic drugs; Z79.890 Hormone replacement therapy; Z79.899 Other long term (current) drug therapy; Z87.891 Personal history of nicotine dependence
CPT/HCPCS: 36415; 71045; 80048; 80053; 82728; 83615; 83735; 84145; 84484; 85025; 85379; 85610; 85730; 86140; 93005; 94760; 99285

== ENCOUNTER → 2021-08-26 | Outpatient (CLI) | payer BC ==
[2021-08-26 14:54] LABS: Basophils # (A) 0.07 X 10*3/uL (0.00-0.10); Basophils % (A) 0.5 %; Eosinophils # (A) 0.41 X 10*3/uL (0.04-0.35); Eosinophils % (A) 2.7 %; HCT 42.4 % (37.2-46.3); Immature Grans, Automated 0.4 %; Lymphocytes # (A) 3.46 X 10*3/uL (0.90-5.00); Lymphocytes % (A) 23.2 %; MCH 28.6 pg (27.0-32.0); MCHC 30.7 g/dL (32.0-37.0); MCV 93.2 fL (80.0-97.0); Mean Platelet Volume 9.3 fL (9.5-12.2); Monocytes # (A) 0.66 X 10*3/uL (0.20-1.00); Monocytes % (A) 4.4 %; NRBC Per 100 WBC 0 /100 WBCS (0.0-0.0); Neutrophils # (A) 10.28 X 10*3/uL (1.80-7.70); Neutrophils % (A) 68.8 %; Platelet Count 427 X 10*3/uL (140-440); RBC 4.55 X 10*6/uL (4.10-5.20); RDW 15.4 % (11.5-14.5); WBC 14.94 X 10*3/uL (4.50-10.00)
[2021-08-26 15:22] LABS: ALT 22 U/L (8-44); AST 22 U/L (13-35); LDH 224 U/L (120-246)
== END | disposition home or self-care (01) ==
LOC: LABWHC1 10:12
PROVIDERS: ATTEND Physician Assistant Medical
DX: E11.21 Type 2 diabetes mellitus with diabetic nephropathy (principal); E66.01 Morbid (severe) obesity due to excess calories
CPT/HCPCS: 36415; 83615; 84450; 84460; 85025

== ENCOUNTER → 2021-10-02 | Outpatient (CLI) | payer BC ==
[2021-10-02 17:36] LABS: Basophils # (A) 0.08 X 10*3/uL (0.00-0.10); Basophils % (A) 0.7 %; Eosinophils # (A) 0.46 X 10*3/uL (0.04-0.35); HCT 50.3 % (37.2-46.3); Immature Grans, Automated 0.4 %; Lymphocytes # (A) 3.65 X 10*3/uL (0.90-5.00); Lymphocytes % (A) 32.1 %; MCH 28.1 pg (27.0-32.0); MCHC 29.8 g/dL (32.0-37.0); MCV 94.4 fL (80.0-97.0); Mean Platelet Volume 9.4 fL (9.5-12.2); Monocytes # (A) 0.58 X 10*3/uL (0.20-1.00); Monocytes % (A) 5.1 %; NRBC Per 100 WBC 0 /100 WBCS (0.0-0.0); Neutrophils # (A) 6.55 X 10*3/uL (1.80-7.70); Neutrophils % (A) 57.7 %; Platelet Count 432 X 10*3/uL (140-440); RBC 5.33 X 10*6/uL (4.10-5.20); RDW 14.6 % (11.5-14.5); WBC 11.36 X 10*3/uL (4.50-10.00)
== END | disposition home or self-care (01) ==
LOC: LABWHC1 13:13
PROVIDERS: ATTEND Physician Assistant Medical
DX: D72.829 Elevated white blood cell count, unspecified (principal)
CPT/HCPCS: 36415; 85025

== ENCOUNTER → 2022-02-28 | Outpatient (CLI) | payer BC ==
[2022-02-28 16:36] LABS: HCT 42.8 % (37.2-46.3); HGB 13.3 g/dL (12.0-15.0); MCH 27.9 pg (27.0-32.0); MCHC 31.1 g/dL (32.0-37.0); MCV 89.9 fL (80.0-97.0); Mean Platelet Volume 9.1 fL (9.5-12.2); NRBC Per 100 WBC 0 /100 WBCS (0.0-0.0); Platelet Count 398 X 10*3/uL (140-440); RBC 4.76 X 10*6/uL (4.10-5.20); RDW 15.2 % (11.5-14.5); WBC 14.36 X 10*3/uL (4.50-10.00)
[2022-02-28 17:19] LABS: ALT 27 U/L (8-44); AST 18 U/L (13-35); Albumin 3.8 g/dL (3.8-4.9); Alkaline Phosphatase 118 U/L (41-126); BUN/Creat Ratio 24.44 Ratio (12.00-20.00); Blood Urea Nitrogen 18.4 mg/dL (9.0-27.0); Calcium 8.7 mg/dL (8.7-10.3); Carbon Dioxide 23.3 mmol/L (20.0-27.5); Chloride 104 mmol/L (96-109); Chol/HDL Ratio 2.29 Ratio; Creatine Kinase 50 U/L (26-186); Globulin 2.4 g/dL (1.6-3.3); Glucose 115 mg/dL (70-110); LDL Cholesterol,Calculated 67.3 mg/dL (0.0-131.0); Non-African American GFR(CKD) 90.6 (60.0-200.0); Potassium 4.3 mmol/L (3.5-5.5); Sodium 141 mmol/L (135-145); Total Protein 6.2 g/dL (6.2-8.2); Uric Acid 3.8 mg/dL (2.9-7.7); VLDL Calculation 16.18 mg/dL (5.00-40.00)
== END | disposition home or self-care (01) ==
LOC: LABWHC1 10:19
PROVIDERS: ATTEND Physician Assistant Medical
DX: E66.01 Morbid (severe) obesity due to excess calories (principal); E11.21 Type 2 diabetes mellitus with diabetic nephropathy; E11.65 Type 2 diabetes mellitus with hyperglycemia
CPT/HCPCS: 36415; 80053; 80061; 82306; 82550; 84439; 84443; 84550; 85027

== ENCOUNTER → 2022-03-14 | Outpatient (CLI) | payer BC ==
[2022-03-14 16:42] LABS: Basophils # (A) 0.03 X 10*3/uL (0.00-0.10); Basophils % (A) 0.3 %; Eosinophils # (A) 0.46 X 10*3/uL (0.04-0.35); Eosinophils % (A) 5.1 %; HCT 42.5 % (37.2-46.3); HGB 12.7 g/dL (12.0-15.0); Immature Grans, Automated 0.2 %; Lymphocytes # (A) 2.66 X 10*3/uL (0.90-5.00); Lymphocytes % (A) 29.6 %; MCH 27.3 pg (27.0-32.0); MCHC 29.9 g/dL (32.0-37.0); MCV 91.2 fL (80.0-97.0); Mean Platelet Volume 8.9 fL (9.5-12.2); Monocytes # (A) 0.49 X 10*3/uL (0.20-1.00); Monocytes % (A) 5.5 %; NRBC Per 100 WBC 0 /100 WBCS (0.0-0.0); Neutrophils # (A) 5.32 X 10*3/uL (1.80-7.70); Neutrophils % (A) 59.3 %; Platelet Count 404 X 10*3/uL (140-440); RBC 4.66 X 10*6/uL (4.10-5.20); RDW 15.1 % (11.5-14.5); WBC 8.98 X 10*3/uL (4.50-10.00)
[2022-03-14 16:56] LABS: ALT 24 U/L (8-44); AST 18 U/L (13-35); African American GFR (CKD) 97.6 (60.0-200.0); Albumin/Globulin Ratio 1.33 (1.60-3.17); Alkaline Phosphatase 106 U/L (41-126); Blood Urea Nitrogen 13.2 mg/dL (9.0-27.0); Calcium 8.8 mg/dL (8.7-10.3); Carbon Dioxide 25.3 mmol/L (20.0-27.5); Chloride 101 mmol/L (96-109); Chol/HDL Ratio 2.57 Ratio; Glucose 122 mg/dL (70-110); LDL Cholesterol,Calculated 54.1 mg/dL (0.0-131.0); Non-African American GFR(CKD) 84.2 (60.0-200.0); Potassium 3.8 mmol/L (3.5-5.5); Sodium 139 mmol/L (135-145)
[2022-03-14 16:58] LABS: Erythrocyte Sedimentation Rate 64 mm/Hr (0-30)
== END | disposition home or self-care (01) ==
LOC: LABWHC1 09:00
PROVIDERS: ATTEND Internal Medicine Endocrinology, Diabetes & Metabolism
DX: E11.65 Type 2 diabetes mellitus with hyperglycemia (principal); M13.0 Polyarthritis, unspecified; D72.829 Elevated white blood cell count, unspecified
CPT/HCPCS: 36415; 80053; 80061; 82043; 82570; 83036; 84443; 85025; 85652

== ENCOUNTER → 2022-04-17 | Outpatient (CLI) | payer BC ==
--- NOTE | 2022-04-17 12:24 | XR ---
EXAMINATION TYPE: XR chest 2V DATE OF EXAM: 04/17/2022 11:38 AM COMPARISON: Chest radiographs from 02/09/2022 TECHNIQUE: XR chest 2V Frontal and lateral views of the chest. CLINICAL INDICATION:Female, 51 years old with history of [id number] COUGH,SOB; FINDINGS: Lungs/Pleura: There is no evidence of pleural effusion, focal consolidation, or pneumothorax. Pulmonary vascularity: Unremarkable. Heart/mediastinum: Cardiomediastinal silhouette is unremarkable. Musculoskeletal: No acute osseous pathology. IMPRESSION: No acute cardiopulmonary disease/process.
== END | disposition home or self-care (01) ==
LOC: RADXRYALE 11:02
PROVIDERS: ATTEND Physician Assistant Medical
DX: R05.9 Cough, unspecified (principal); R06.02 Shortness of breath
CPT/HCPCS: 71046

== ENCOUNTER → 2022-04-22 | Outpatient (CLI) | payer BC ==
--- NOTE | 2022-04-24 07:49 | MM ---
Reason for Exam: Screening (asymptomatic). Last mammogram was performed 1 year(s) and 1 month(s) ago. Patient History: Menarche at age 8. First Full-Term at age 32. Late child-bearing (after 30). Perimenopausal. Hormonal Contraceptives for 20 years from age 16 until age 51. Maternal cousin had breast cancer, age 30. Risk Values: [place] 5 year model risk: 1.7%. NCI Lifetime model risk: 12.6%. Prior Study Comparison: 08/17/2016 Bilateral Screening Mammogram, [facility]. 01/08/2020 Bilateral Screening Mammogram, [facility]. 04/03/2021 Bilateral Screening Mammogram, [facility]. Tissue Density: The breast tissue is almost entirely fat. Findings: Analyzed By CAD. There is no suspicious group of microcalcifications or new suspicious mass in either breast. Overall Assessment: Negative, BI-RAD 1 Management: Screening Mammogram of both breasts in 1 year. A clinical breast exam by your physician is recommended on an annual basis and results should be correlated with mammographic findings. [facility] will attempt to contact patient to return for supplemental views and ultrasound if indicated. Electronically signed and approved by: Bib Castro DO
== END | disposition home or self-care (01) ==
LOC: RADMAMWWP 14:38
PROVIDERS: ATTEND Family Medicine
DX: Z12.31 Encounter for screening mammogram for malignant neoplasm of breast (principal); Z80.3 Family history of malignant neoplasm of breast
CPT/HCPCS: 77067

== ENCOUNTER → 2022-05-11 | Outpatient (CLI) | payer BC ==
--- NOTE | 2022-05-12 02:51 | MR ---
EXAMINATION TYPE: MR knee RT wo con DATE OF EXAM: 05/11/2022 COMPARISON: None HISTORY: Right inner knee pain, painful kneecap, pain behind knee, locking, and swelling for 6 months . Multiplanar multiecho imaging of the right knee performed without contrast. The anterior and posterior cruciate ligaments are intact there is mild knee joint effusion. There is 2 x 1 cm popliteal cyst. The collateral ligaments are intact. No evidence of a fracture. No evidence of bony destructive proce ss. The patella is intact. There is mild subcutaneous edema anterior to the patella. The medial and lateral menisci appear intact. IMPRESSION: Mild knee joint effusion. Small popliteal cyst. Mild subcutaneous edema. No evidence of ligamentous o r meniscal tear.
== END | disposition home or self-care (01) ==
LOC: RADMRIMAIN 17:33
PROVIDERS: ATTEND Orthopaedic Surgery
DX: M25.461 Effusion, right knee (principal); M71.21 Synovial cyst of popliteal space [Baker], right knee; R60.0 Localized edema; M25.561 Pain in right knee

== ENCOUNTER 2022-07-10 08:34 | Day surgery (SDC) | payer BC ==
[2022-07-07 17:22] VITALS: BMI 46.3
[~2022-07-10 08:34] MED LIST changes: -DEXAMETHASONE SOD PHOSPHATE 10 MG/ML 1 ML VIAL IV ONE; +DEXAMETHASONE SOD PHOSPHATE 4 MG/ML 1 ML VIAL IV ONE; +HYDROmorphone 0.5 MG/0.5 ML SYRINGE IVP PRN; -LIDOCAINE 1% (10MG/ML) FOR IV START INTRADERMA PRN; +MIDAZOLAM 2 MG/2 ML VIAL IV PRN; +ONDANSETRON 4 MG/2 ML VIAL IVP ONE; +SCOPOLAMINE 1 MG/72 HR PATCH TRANSDERM ONE; +ceFAZolin 3 GM in SODIUM CHLORIDE 0.9% 100 ML IVPB PRN
[2022-07-10] MEDS ORDERED: MIDAZOLAM 2 MG/2 ML VIAL IV ONE (09:14)
[2022-07-10] MEDS ORDERED: fentaNYL (PF) 50 MCG/1 ML VIAL IV ONE (09:14)
[2022-07-10 09:17] LABS: Glucose,Whole Blood 173 mg/dL (70-110)
--- NOTE | 2022-07-10 09:35 | P.ANPRN ---
Procedure Note - Anesthesia - Nerve Block Performed Right Popliteal Single Time Out Performed: Yes Date of Procedure: 07/10/22 Procedure Start Time: 09:13 Procedure Stop Time: :18 Location of Patient: PreOp Indication: Acute Post-Operative Pain, Requested by Surgeon Sedation Type: Sedate with meaningful contact maintained Preparation: Sterile Prep Position: Supine Needle Types: Pajunk Needle Gauge: 21 Ultrasound used to visualize needle placement: Yes Ultrasound used to observe medication spread: Yes Injectate: 0.5% Ropivacaine (see comment for volume) (0.25% ropiv 20 ml) Blood Aspirated: No Pain Paresthesia on Injection Noted: No Resistance on Injection: Normal Image Stored and Saved: Yes Events: Uneventful and Well Tolerated
--- NOTE | 2022-07-10 09:36 | P.ANPRN ---
Procedure Note - Anesthesia - Nerve Block Performed Right Saphenous/Obturator Single Time Out Performed: Yes Date of Procedure: 07/10/22 Procedure Start Time: Procedure Stop Time: Location of Patient: PreOp Indication: Acute Post-Operative Pain, Requested by Surgeon Sedation Type: Sedate with meaningful contact maintained Preparation: Sterile Prep Position: Supine Needle Types: Pajunk Needle Gauge: 21 Ultrasound used to visualize needle placement: Yes Ultrasound used to observe medication spread: Yes Injectate: 0.5% Ropivacaine (see comment for volume) (0.25% ropiv 20 ml) Blood Aspirated: No Pain Paresthesia on Injection Noted: No Resistance on Injection: Normal Image Stored and Saved: Yes Events: Uneventful and Well Tolerated
[2022-07-10] MEDS ORDERED: PROPOFOL 10 MG/ML 20 ML VIAL IV ONE (09:38)
[2022-07-10] MEDS ORDERED: SUCCINYLCHOLINE CHLORIDE 200 MG/10 ML VIAL IV ONE (09:38)
[2022-07-10] MEDS ORDERED: ROPIVACAINE 5 MG/ML 30 ML VIAL ONE (09:38)
[2022-07-10] MEDS ORDERED: fentaNYL (PF) 50 MCG/ML 2 ML AMP ONE (09:38)
[2022-07-10] MEDS ORDERED: LIDOCAINE 2% INJ 20 MG/ML (2 ML VIAL) ONE (09:38)
[2022-07-10] MEDS ORDERED: LACTATED RINGERS 1,000 ML IV ONE (11:10)
[2022-07-10 11:43] VITALS: TEMP 97
[2022-07-10 12:58] VITALS: RESP 20
[2022-07-10 13:35] VITALS: BP 125/63; PULSE 106
--- NOTE | 2022-07-14 10:01 | OP ---
OPERATIVE REPORT PREOPERATIVE DIAGNOSIS: Primary osteoarthritis, 1st tarsometatarsal joint, right foot. POSTOPERATIVE DIAGNOSIS: Primary osteoarthritis, 1st tarsometatarsal joint, right foot. PROCEDURE: Arthrodesis, 1st tarsometatarsal joint, right foot. ANESTHESIA: General with preoperative nerve block. HEMOSTASIS: Right ankle tourniquet at 250 mmHg. ESTIMATED BLOOD LOSS: Minimal. MATERIALS: Two compression annelise and ActiV allograft. INJECTABLES: None. SPECIMENS: None. COMPLICATIONS: None. DESCRIPTION OF PROCEDURE: Prior to the patient being brought to the operating room, Anesthesia administered nerve block on the right lower extremity. The patient was then brought into the operating room and placed on the table in the supine position. Time-out was taken to confirm correct patient identifiers, correct laterality of the surgery, and correct procedure. Once the staff in the room were in agreement with the time-out, the patient was induced and placed under general anesthesia. A well-padded tourniquet was placed on the right ankle, and the right foot was prepped and draped in the usual manner. The right foot was exsanguinated, and then tourniquet was inflated to 250 mmHg. Attention was directed over the medial aspect of the foot, where an incision was made over the 1st tarsometatarsal joint, it was deepened down to the subcutaneous tissue careful to identify, avoid, and retract any neurovascular structures and cauterize any bleeding vessels. Dissection was continued down to the level of the joint capsule of the 1st tarsometatarsal joint. Subcutaneous tissue was reflected from this tissue dorsally and plantarly. A transverse incision was made through the capsule to expose the joint surfaces. Then, under direct fluoroscopic visualization, a rotary bur was utilized to resect the articular surface of the base of the 1st metatarsal and the distal aspect of the medial cuneiform. Once completed, the area was visually inspected to make sure there was a proper debridement. Once that was completed, both surfaces were aggressively fenestrated. The wound was then thoroughly irrigated with antibiotic saline. ActiV bone allograft was then placed between the arthrodesis segments, and then a wire placed for temporary fixation. Then, 2 wires were placed on either side of the arthrodesis site during compression device inserted over the wires, and the joint compressed. Then, 2 compression annelise were placed. The drill holes were made dorsomedial and plantar medial. The dorsomedial staple was placed 1st and then deployed to allow compression of the staple arms and then the plantar one done 2nd and deployed to compress the staple arms. Once completed, fluoroscopy was used to confirm the proper placement of the annelise as well as confirm that the area was compressed. Once that was completed, the wound was thoroughly irrigated with antibiotic saline. Deep closure was done with a 3-0 Vicryl, subcutaneous closure was done with 4-0 Monocryl. Skin closure was done with a 4-0 Stratafix in a running subcuticular manner. [employer] glue was applied and allowed to dry, then covered with Steri-Strips, Arthrex JumpStart dressing, and then a dry sterile dressing was applied to the right foot. The tourniquet was released. Capillary refill returned to all digits on the right foot. The patient was then placed in a well-padded well-molded plaster posterior mold/sugar- tong splint. The ankle was held in neutral position until the splint was dried. At that point, anesthesia was reversed, and the patient was taken to the recovery room with vital signs stable. MMODL / IJN: [id number] /
== END 2022-07-10 13:44 | disposition home or self-care (01) ==
LOC: OR 08:34
PROVIDERS: ATTEND Podiatrist
DX: M19.071 Primary osteoarthritis, right ankle and foot (principal); G89.18 Other acute postprocedural pain; I10 Essential (primary) hypertension; E78.5 Hyperlipidemia, unspecified; E03.9 Hypothyroidism, unspecified; F32.A Depression, unspecified; E11.9 Type 2 diabetes mellitus without complications; Z88.2 Allergy status to sulfonamides; Z90.49 Acquired absence of other specified parts of digestive tract; Z82.49 Family history of ischemic heart disease and other diseases of the circulatory system; Z83.3 Family history of diabetes mellitus; Z79.899 Other long term (current) drug therapy
CPT/HCPCS: 28740; 81025; 64450; 64445; 76942; C1713; J2250; J0330; J1100; J0690; J2405; J3010 ×2; J2795; J2704; J2001

== ENCOUNTER → 2022-10-21 | Outpatient (CLI) | payer BC ==
[2022-10-21 23:05] LABS: T4, Free (Free Thyroxine) 1.41 ng/dL (0.800-1.800)
== END | disposition home or self-care (01) ==
LOC: LABWHC1 12:40
PROVIDERS: ATTEND Physician Assistant Medical
DX: E03.9 Hypothyroidism, unspecified (principal)
CPT/HCPCS: 36415; 84439; 84443

== ENCOUNTER → 2022-11-11 | Outpatient (CLI) | payer BC | END | disposition home or self-care (01) | LOC: LABPAT 13:03 | PROVIDERS: ATTEND Orthopaedic Surgery | DX: Z01.812 Encounter for preprocedural laboratory examination (principal); Z22.322 Carrier or suspected carrier of Methicillin resistant Staphylococcus aureus; M17.12 Unilateral primary osteoarthritis, left knee | CPT/HCPCS: 87070 ==

== ENCOUNTER 2022-12-28 10:32 | Observation (INO) | payer BC ==
--- NOTE | 2022-12-28 07:33 | HP ---
HISTORY AND PHYSICAL DATE OF SURGERY: 12/28/2022. HISTORY OF PRESENT ILLNESS: Virginia Eugene is a 52-year-old patient seen with symptomatic left knee osteoarthritis. After having treatment options discussed, she elected to proceed with left total knee arthroplasty. Consent regarding the procedure obtained. Medical clearance was provided by JURGEN Solis. PAST MEDICAL HISTORY: Hypertension, jxv-[id number] diabetes, asthma, hypothyroidism. PAST SURGICAL HISTORY: Cholecystectomy, section. DAILY MEDICATIONS: Atorvastatin, gabapentin, ibuprofen, furosemide, glimepiride, levothyroxine, losartan, metformin, sertraline. ALLERGIES: Sulfa. SOCIAL HISTORY: She denies tobacco use. PHYSICAL EVALUATION OF LEFT KNEE: Range of motion 0 to 115 degrees. Mild effusion. Tenderness along the medial joint line. Crepitus along the medial patellofemoral compartments with range of motion. Some pain with patellofemoral compression. Ligaments stable. Hip rotation without pain. Distal neurovascular exam intact. RADIOGRAPHS: Left knee radiographs reveal severe osteoarthritic changes. IMPRESSION: 1. Left knee osteoarthritis. 2. Hypertension. 3. Hypothyroidism. 4. Kpj-szbzdjb-lorvzihsx diabetes. PLAN: Left total knee arthroplasty. MMODL / IJN: [id number] /
[~2022-12-28 10:32] MED LIST changes: +ACETAMINOPHEN TAB 500 MG TAB PO PRN; -DEXAMETHASONE SOD PHOSPHATE 4 MG/ML 1 ML VIAL IV ONE; -HYDROmorphone 0.5 MG/0.5 ML SYRINGE IVP PRN; -LACTATED RINGERS 1,000 ML IV SCH; +MELOXICAM 7.5 MG TAB PO PRN; -MIDAZOLAM 2 MG/2 ML VIAL IV PRN; -ONDANSETRON 4 MG/2 ML VIAL IVP ONE; -SCOPOLAMINE 1 MG/72 HR PATCH TRANSDERM ONE; +TRANEXAMIC 1,000 MG/100ML-NACL 1,000 MG in SALINE 1 100ML.BAG IVPB PRN
[2022-12-28] MEDS ORDERED: DEXAMETHASONE SOD PHOSPHATE 4 MG/ML 1 ML VIAL IV ONE (10:39)
[2022-12-28] MEDS ORDERED: LACTATED RINGERS 1,000 ML IV SCH (10:39)
[2022-12-28] MEDS ORDERED: MIDAZOLAM 2 MG/2 ML VIAL IV PRN (10:39)
[2022-12-28] MEDS ORDERED: SCOPOLAMINE 1 MG/72 HR PATCH TRANSDERM ONE (10:39)
[2022-12-28] MEDS ORDERED: ONDANSETRON 4 MG/2 ML VIAL IVP ONE (10:39)
[2022-12-28 11:14] LABS: Glucose,Whole Blood 150 mg/dL (70-110)
[2022-12-28] MEDS ORDERED: MIDAZOLAM 2 MG/2 ML VIAL IVP ONE (11:25)
[2022-12-28] MEDS ORDERED: fentaNYL (PF) 50 MCG/ML 2 ML AMP IVP ONE (11:27)
--- NOTE | 2022-12-28 11:59 | P.ANPRN ---
Procedure Note - Anesthesia - Nerve Block Performed Left Adductor Canal Infusion Time Out Performed: Yes Date of Procedure: 12/28/22 Procedure Start Time: 11:25 Procedure Stop Time: 11:33 Location of Patient: PreOp Indication: Acute Post-Operative Pain, Requested by Surgeon Specifically requested for management of pain by DrGissel: Rigoberto Gonzalez Sedation Type: Sedate with meaningful contact maintained Preparation: Sterile Prep, Sterile Dressing Position: Supine Needle Types: Pajunk Needle Gauge: 18 Ultrasound used to visualize needle placement: Yes Ultrasound used to observe medication spread: Yes Injectate: 0.5% Ropivacaine (see comment for volume) (15 ml + 15 ml NS) Blood Aspirated: No Pain Paresthesia on Injection Noted: No Resistance on Injection: Normal Image Stored and Saved: Yes Events: Uneventful and Well Tolerated
[2022-12-28] MEDS ORDERED: ROPIVACAINE 1,100 MG, SODIUM CHLORIDE 0.9% 500 ML 330 ML, EMPTY PAIN BALL 1 EACH MISCELLANE PRN ×2 (12:00)
--- NOTE | 2022-12-28 12:00 | P.ANPRN ---
Procedure Note - Anesthesia - Nerve Block Performed Left Chrisck Single Time Out Performed: Yes Date of Procedure: 12/28/22 Procedure Start Time: 11:34 Procedure Stop Time: 11:46 Location of Patient: PreOp Indication: Acute Post-Operative Pain, Requested by Surgeon Specifically requested for management of pain by DrGissel: Rigoberto Gonzalez Sedation Type: Sedate with meaningful contact maintained Preparation: Sterile Prep Position: Right Lateral Needle Types: Pajunk Needle Gauge: 21 Ultrasound used to visualize needle placement: Yes Ultrasound used to observe medication spread: Yes Injectate: 0.5% Ropivacaine (see comment for volume) (15 ml + 15 ml NS + 4 mg dexamethason) Blood Aspirated: No Pain Paresthesia on Injection Noted: No Resistance on Injection: Normal Image Stored and Saved: Yes Events: Uneventful and Well Tolerated
[2022-12-28] MEDS ORDERED: METOPROLOL TARTRATE 5 MG/5 ML VIAL IVP ONE (12:28)
[2022-12-28] MEDS ORDERED: PROPOFOL 10 MG/ML 20 ML VIAL IV ONE (12:28)
[2022-12-28] MEDS ORDERED: SODIUM CHLORIDE 0.9% (PF) 10 ML VIAL ONE (12:28)
[2022-12-28] MEDS ORDERED: hydrALAZINE HCL 20 MG/ML 1 ML VIAL ONE (12:28)
[2022-12-28] MEDS ORDERED: MIDAZOLAM 2 MG/2 ML VIAL ONE (12:28)
[2022-12-28] MEDS ORDERED: DEXAMETHASONE SOD PHOSPHATE 4 MG/ML 1 ML VIAL ONE (12:28)
[2022-12-28] MEDS ORDERED: fentaNYL (PF) 50 MCG/ML 2 ML AMP ONE (12:28)
[2022-12-28] MEDS ORDERED: ROPIVACAINE 5 MG/ML 30 ML VIAL ONE (12:28)
[2022-12-28] MEDS ORDERED: KETAMINE 10 MG/ML 20 ML VIAL ONE (12:28)
[2022-12-28] MEDS ORDERED: SUCCINYLCHOLINE CHLORIDE 200 MG/10 ML VIAL IV ONE (12:28)
[2022-12-28] MEDS ORDERED: TRANEXAMIC 1,000 MG/100ML-NACL PREMIX BAG ONE (12:28)
[2022-12-28] MEDS ORDERED: NEOSTIGMINE 1 MG/ML 10 ML VIAL ONE (12:28)
[2022-12-28] MEDS ORDERED: ROCURONIUM 10 MG/ML (5 ML VIAL) IV ONE (12:28)
[2022-12-28] MEDS ORDERED: GLYCOPYRROLATE 0.2 MG/ML 2 ML VIAL ONE (12:28)
[2022-12-28] MEDS ORDERED: HYDROmorphone (PF) 1 MG/ML ONE (12:28)
[2022-12-28] MEDS ORDERED: LIDOCAINE 2% INJ 20 MG/ML (2 ML VIAL) ONE (12:28)
[2022-12-28] MEDS ORDERED: LACTATED RINGERS 1,000 ML IV ONE (14:27)
[2022-12-28] MEDS ORDERED: ONDANSETRON 4 MG/2 ML VIAL IVP PRN (14:34)
[2022-12-28] MEDS ORDERED: NALOXONE 0.4 MG/ML 1 ML VIAL IV PRN (14:34)
[2022-12-28] MEDS ORDERED: HYDROcodone/APAP 5-325MG 1 EACH TAB PO PRN (14:34)
[2022-12-28] MEDS ORDERED: HYDROmorphone 0.5 MG/0.5 ML SYRINGE IVP PRN (14:34)
--- NOTE | 2022-12-28 14:34 | P.OP ---
Date of Procedure: 12/28/22 Preoperative Diagnosis: Left knee osteoarthritis Postoperative Diagnosis: Left knee osteoarthritis Procedure(s) Performed: Left total knee arthroplasty Implants: 1. Depuy attune size 5 left cruciate retaining cemented femur 2. Depuy attune size 4 fixed bearing cemented tibial baseplate 3. Depuy attune size 5 fixed bearing cruciate retaining 10 mm polyethylene tibial insert 4. Depuy attune 35 mm all polyethylene cemented patella Anesthesia: GETA, regional (Adductor canal catheter, Ipack block) Surgeon: Rigoberto Gonzalez Sports Analyst #1: Aaron Isbell Estimated Blood Loss (ml): 50 Pathology: none sent Condition: stable Disposition: PACU Indications for Procedure: 52-year-old patient seen with symptomatic left knee osteoarthritis. After having treatment options discussed, she elected to proceed with left total knee arthroplasty. Operative Findings: See description of procedure Description of Procedure: Patient was taken to the operative suite after having an adductor canal catheter placed by the department of anesthesia. Patient underwent a general anesthetic by the department of anesthesia. Patient was given preoperative IV intake antibiotics and TXA. A well-padded tourniquet was placed about the left lower extremity. The lower extremity was then prepped and draped in the normal sterile orthopedic fashion. The extremity was elevated, a tourniquet was insufflated to 300. A standard anterior incision was made sharply through skin. Dissection was taken down through the subcutaneous soft tissues down to the extensor mechanism. A medial arthrotomy was performed, patella was everted and knee was flexed. There was advanced osteoarthritis noted. I introduced my distal intramedullary femoral drill. I then introduced the distal femoral cutting jig. Alberto SEAMAN secured the cutting jig with 2 pins. I held retractors in position while Alberto SEAMAN performed the distal femoral resection through the guide area we now removed her distal femoral cutting guide. We now placed our 4-in-1 femoral cutting block and positioned and it was secured with 2 pins by Alberto SEAMAN while I held the block in position. The distal femoral finishing was now completed. A proximal tibial cutting guide was positioned. I held the guide in the appropriate position with both hands well Alberto SEAMAN inserted stabilizing pins into the guide. Proximal tibial cut was made. We now placed a trial femoral component into position, along with an appropriate size tibial tray and insert. We now took the knee through range of motion and had full extension good flexion and good overall soft tissue balance noted. The patella was everted and stabilized with 2 towel clips held by Alberto SEAMAN while I performed a flush with patellar quad tendon utilizing a fresh sawblade. We templated the patella, appropriate drill holes were made. An appropriate trial patella was positioned, knee was taken through full range of motion with the patella tracking very nicely. The trial patella was removed. Drill holes were made through the femoral component. All trial components were removed after marking off the appropriate rotation of the tibia. Retractors were now positioned along the proximal tibia. An appropriate keel punch was made with the appropriate size tibial guide by myself on Alberto SEAMAN assisted by holding retractors. At this point appropriate size implants were chosen and opened. The joint was irrigated copiously with pulse lavage mechanical irrigation. The wound was irrigated with pulse lavage mechanical irrigation. We mixed antibiotic methylmethacrylate. We placed the knee into flexion. We placed multiple retractors assisted by Alberto SEAMAN to expose the proximal tibia. Once the methyl methacrylate was ready, the tibial component was cemented into place removing any excess methylmethacrylate form by both myself and Alberto SEAMAN. The femoral component was cemented into place removing the removing any excess methylmethacrylate performed by both myself and Alberto SEAMAN. We then inserted the appropriate size polyethylene tibial insert. We made sure that it was locked into position. We took the knee into full extension, and then back in a flexion making sure we had removed any excess methylmethacrylate. The patellar component was then cemented down and secured with clamp. Excess methylmethacrylate removed. We kept the knee in full extension, patellar clamp in position until methylmethacrylate had hardened. Once it had hardened the patellar clamp was removed. The knee was taken through full range of motion. The patella tracked nicely. There was good soft tissue balancing. The tourniquet was now released. Additional hemostasis was achieved via electrocautery. A second gram of TXA was given. The wound again was irrigated with pulse lavage mechanical irrigation. The extensor mechanism was repaired with Ethibond suture. We checked the repair with range of motion and it was stable. The subcutaneous soft tissues were repaired with Vicryl in layers. The skin was approximated with pernio/Dermabond. Sterile dressings were applied followed by loose web roll and Hubert bandage. The patient was transferred to a bed, and taken to recovery in stable and satisfactory condition. Alberto SEAMAN assisted with this complex procedure.
[2022-12-28 15:12] LABS: Glucose,Whole Blood 148 mg/dL (70-110)
[2022-12-28] MEDS: HYDROmorphone 0.5 MG/0.5 ML SYRINGE IVP PRN ×2 (15:35→16:15)
--- NOTE | 2022-12-28 15:38 | XR ---
EXAMINATION TYPE: XR knee limited LT DATE OF EXAM: 12/28/2022 CLINICAL HISTORY: Postoperative evaluation Two views of the left knee are submitted. Identified are changes of total knee arthroplasty with fem oral and tibial components appearing well seated. Postsurgical soft tissue changes are noted. Align ment is anatomic.
[2022-12-28] MEDS: LACTATED RINGERS 1,000 ML IV SCH (18:41)
[2022-12-28] MEDS ORDERED: DEXTROSE 50% SYRINGE 50 ML IVP PRN ×2 (20:05)
[2022-12-28] MEDS: HYDROcodone/APAP 7.5-325MG 1 EACH TAB PO PRN (20:21)
[2022-12-28] MEDS: SENNOSIDES-DOCUSATE SODIUM 1 EACH TAB PO SCH (20:22)
[2022-12-28] MEDS: ceFAZolin 3 GM in SODIUM CHLORIDE 0.9% 100 ML IVPB SCH (20:22)
[2022-12-28 21:30] LABS: Glucose,Whole Blood 196 mg/dL (70-110)
[2022-12-28] MEDS: INSULIN ASPART (NovoLOG) 100 UNIT/ML VIAL SQ SCH (22:05)
[2022-12-28] MEDS: GABAPENTIN 400 MG CAP PO SCH (22:05)
[2022-12-29] MEDS: HYDROmorphone 1 MG/ML 1 ML SYRINGE IVP PRN ×3 (00:05→21:27)
[2022-12-29] MEDS: ceFAZolin 3 GM in SODIUM CHLORIDE 0.9% 100 ML IVPB SCH (04:05)
[2022-12-29] MEDS: LACTATED RINGERS 1,000 ML IV SCH ×3 (04:07→21:30)
[2022-12-29] MEDS: HYDROcodone/APAP 7.5-325MG 1 EACH TAB PO PRN (04:45)
[2022-12-29] MEDS: LEVOTHYROXINE 137 MCG TAB PO SCH (05:41)
[2022-12-29 05:42] LABS: Glucose,Whole Blood 147 mg/dL (70-110)
[2022-12-29] MEDS: HYDROmorphone 0.5 MG/0.5 ML SYRINGE IVP PRN (05:44)
--- NOTE | 2022-12-29 05:48 | P.CONS ---
History of Present Illness - Reason for Consult Consult date: 12/28/22 Postop management - Chief Complaint scheduled left knee replacement - History of Present Illness 52-year-old female with hypertension hypothyroid diabetes mellitus Patient again for scheduled left knee total arthroplasty due to advanced severe osteoarthritis. Patient tolerated procedure well no observed immediate postoperative complications patient tolerating by mouth intake passed urine. D enies any nausea vomiting or chest pain denies any coughing denies any trouble breathing abdominal pain denies any smoking or illicit drugs or alcohol Review of systems Pertinent positives as noted in HPI. All other systems were reviewed and are negative Past medical history Diabetes mellitus, hypertension, hypothyroid On physical exam Constitutional: No acute distress, conversant, pleasant Eyes: Anicteric sclerae, moist conjunctiva, Pupils equal round reactive to light ENMT: NC/AT Oropharynx clear, no erythema, or exudates Neck: Supple, no masses, or JVD No carotid bruits No thyromegaly Lungs: Clear to auscultation Clear to percussion Normal respiratory effort, no accessory muscle use Cardiovascular: Heart regular in rate and rhythm, No murmurs, gallops, or rubs No peripheral edema Abdominal: Soft Nontender, no guarding, rebound or rigidity Abdomen moving with respiration Normoactive bowel sounds No hepatomegaly, No splenomegaly No palpable mass No abdominal wall hernia noted Extremities: No digital cyanosis No clubbing Pedal pulses intact and symmetrical Radial pulses intact and symmetrical No calf tenderness Psychiatric: Alert and oriented to person, place and time Appropriate affect fair judgement Neuro Muscles Strength 5/5 in all 4 extremities limited exam over the left lower extremity due to surgery. Sensation to light touch grossly present throughout Cranial nerves II-XII grossly intact Lymphatics: no palpable cervical or supraclavicular lymph nodes Past Medical History Past Medical History: Asthma, Diabetes Mellitus, Deep Vein Thrombosis (DVT), Hyperlipidemia, Hypertension, Osteoarthritis (OA), Sleep Apnea/CPAP/BIPAP, Thyroid Disorder Additional Past Medical History / Comment(s): diverticulitis, no cpap used, History of Any Multi-Drug Resistant Organisms: None Reported Past Surgical History: Section, Cholecystectomy, Orthopedic Surgery Additional Past Surgical History / Comment(s): Left meniscus repair November 2019 rt foot surgery, TLK 12/28/22 Past Anesthesia/Blood Transfusion Reactions: No Reported Reaction Past Psychological History: Depression Smoking Status: Never smoker Past Alcohol Use History: None Reported Past Drug Use History: None Reported - Past Family History Mother Family Medical History: Congestive Heart Failure (CHF), COPD Medications and Allergies Home Medications Medication Instructions Recorded Confirmed Type Aspirin 81 mg PO DAILY 04/18/16 12/18/22 History Atorvastatin [Lipitor] 40 mg PO DAILY 04/18/16 12/28/22 History ARIPiprazole [Abilify] 5 mg PO DAILY 12/01/19 12/18/22 History Gabapentin [Neurontin] 400 mg PO TID 12/01/19 12/18/22 History Multivitamins, Thera [Multivitamin 1 tab PO DAILY 12/01/19 12/18/22 History (formulary)] Cholecalciferol (Vitamin D3) 125 mcg PO DAILY 05/16/21 12/18/22 History [Vitamin D3 (125 MCG = 5,000 IU)] Cyclobenzaprine HCl 10 mg PO DAILY PRN 05/16/21 12/28/22 History Dapagliflozin Propanediol [Farxiga] 10 mg PO DAILY 05/16/21 12/28/22 History Furosemide [Lasix] 20 mg PO DAILY 05/16/21 12/28/22 History Glimepiride [Amaryl] 4 mg PO DAILY 05/16/21 12/28/22 History Levothyroxine Sodium [Synthroid] 137 mcg PO DAILY 05/16/21 12/18/22 History Losartan Potassium 100 mg PO DAILY 05/16/21 12/18/22 History Magnesium Oxide [Cuevas] 500 mg PO DAILY 05/16/21 12/28/22 History Pioglitazone HCl 30 mg PO DAILY 05/16/21 12/28/22 History Sertraline [Zoloft] 150 mg PO DAILY 05/16/21 12/18/22 History Turmeric Root Extract [Turmeric] 1,200 mg PO DAILY 05/16/21 12/28/22 History metFORMIN HCL ER [Glucophage XR] 500 mg PO BID 05/16/21 12/28/22 History DULoxetine HCL [Cymbalta] 60 mg PO DAILY 07/07/22 12/18/22 History Montelukast [Singulair] 10 mg PO DAILY 12/18/22 12/18/22 History Tirzepatide [Mounjaro] 10 mg SQ RADER 12/18/22 12/28/22 History oxyCODONE-APAP 7.5-325MG [Percocet 1 tab PO BID 12/18/22 12/28/22 History 7.5-325 mg] Allergies Allergy/AdvReac Type Severity Reaction Status Date / Time amoxicillin [From Augmentin] AdvReac Nausea & Verified 12/28/22 11:02 Vomiting clavulanic acid AdvReac Nausea & Verified 12/28/22 11:02 [From Augmentin] Vomiting Sulfa (Sulfonamide AdvReac Nausea Verified 12/28/22 11:02 Antibiotics) Physical Exam Vitals: Vital Signs Temp Pulse Resp BP Pulse Ox 12/29/22 00:47 97.6 F 100 18 105/69 94 L 12/28/22 19:35 98.3 F 107 H 16 128/82 95 12/28/22 17:34 97.6 F 103 H 15 107/46 94 L 12/28/22 17:00 103 H 14 149/70 94 L 12/28/22 16:45 103 H 14 149/67 96 12/28/22 16:30 102 H 14 159/68 96 12/28/22 16:15 97 14 145/63 99 12/28/22 16:00 100 14 149/65 99 12/28/22 15:45 97 14 138/63 99 12/28/22 15:30 91 14 131/63 99 12/28/22 15:15 92 14 140/68 12/28/22 14:58 97.3 F L 98 14 150/70 12/28/22 11:57 86 16 115/66 97 12/28/22 10:50 97.8 F 97 18 137/60 95 Intake and Output 12/28/22 12/28/22 12/29/22 14:59 22:59 06:59 Intake Total 1100 1300 Output Total 50 Balance 1050 1300 Intake: IV 1100 400 Intake, IV Titration 900 Amount Lactated Ringers 1,000 ml 800 @ 100 mls/hr IV .Q10H FOUZIA Rx#:[id number] ceFAZolin 3 gm In Sodium 100 Chloride 0.9% 100 ml @ 200 mls/hr IVPB Q8H FOUZIA Rx#:[id number] Output: Estimated Blood Loss 50 Other: Voiding Method Toilet Weight 124.3 kg 124.3 kg Results Labs: Abnormal Lab Results - Last 24 Hours (Table) 07/04/1212/28/22 12/28/22 Range/Units 11:06 15:11 21:28 POC Glucose (mg/dL) 150 H 148 H 196 H (70-110) mg/dL 12/29/22 Range/Units 05:39 POC Glucose (mg/dL) 147 H (70-110) mg/dL Assessment and Plan Assessment: Hypertension controlled Resume home blood pressure medications losartan Diabetes mellitus on oral hypoglycemic agents Check A1c Hold oral hypoglycemic agents Insulin sliding scale Hyperlipidemia Resume statin Status post left total knee arthroplasty Management per orthopedic Pain control with opiates and nerve block DVT prophylaxis on Lovenox Follow-up morning labs CBC and BMP Stable for from medical standpoint Thank you for this consultation
[2022-12-29] MEDS: INSULIN ASPART (NovoLOG) 100 UNIT/ML VIAL SQ SCH ×4 (05:49→21:27)
--- NOTE | 2022-12-29 06:24 | P.PN ---
Progress Note - Text Progress Note Date: 12/29/22 Postoperative day # 1 status post total knee arthroplasty, and adductor canal catheter placed for postoperative analgesia, currently at ropivacaine 0.2% 8 mL per hour and continuous infusion, visual analogue scale is 5/10, patient using oral pain medication for breakthrough pain. Assessment and plan= Acute postoperative pain, adductor canal catheter for pain control, we'll continue the same management.
[2022-12-29] MEDS: MULTIVITAMINS, THERA 1 EACH TAB PO SCH (08:11)
[2022-12-29] MEDS: MONTELUKAST 10 MG TAB PO SCH (09:18)
[2022-12-29] MEDS: SERTRALINE 50 MG TAB PO SCH (09:18)
[2022-12-29] MEDS: ARIPiprazole 5 MG TAB PO SCH (09:18)
[2022-12-29] MEDS: LOSARTAN 50 MG TAB PO SCH (09:18)
[2022-12-29] MEDS: DULoxetine HCL 60 MG CAPSULE.DR PO SCH (09:19)
[2022-12-29] MEDS: ENOXAPARIN 30 MG/0.3 ML SYRINGE SQ SCH ×2 (09:19→20:14)
[2022-12-29] MEDS: GABAPENTIN 400 MG CAP PO SCH ×3 (09:19→21:27)
[2022-12-29] MEDS: ATORVASTATIN 40 MG TAB PO SCH (09:19)
--- NOTE | 2022-12-29 10:21 | P.PN ---
Subjective Progress Note Date: 12/29/22 Principal diagnosis: Left knee osteoarthritis Patient was seen at bedside this morning lying semirecumbent position with silver foam dressing present over left knee. patient says she is in a lot of pain since surgery yesterday. She says normally she does take Percocet 7.5 mg/325 mg at home, primarily for her back. Patient states most of knee pain is located in front of the knee. Patient rates pain as 9/10 currently. Patient denies radiation of pain. Patient says she has been up out of bed 3 times since surgery yesterday where she has walked to the bathroom. Patient says physical therapy has not been diet to work with her this morning. Patient says she is hoping to stay one more night in the hospital for additional pain control. She says she does have one step into her house. Patient says she does have a walker for home. Patient says she has not had bowel movement yet. Patient denies chest pain, fever, shortness breath, nausea, vomiting, change in vision, loss/bladder control. Objective - Vital Signs Vital signs: Vital Signs Temp 97.7 F 12/29/22 07:50 Pulse 92 12/29/22 07:50 Resp 15 12/29/22 07:50 BP 121/79 12/29/22 07:50 Pulse Ox 98 12/29/22 07:50 FiO2 Intake & Output 12/28/22 12/29/22 12/29/22 18:59 06:59 18:59 Intake Total 2400 Output Total 50 Balance 2350 Weight 124.3 kg Intake: IV 1500 Intake, IV Titration 900 Amount Lactated Ringers 1,000 ml 800 @ 100 mls/hr IV .Q10H [facility] Rx#:[id number] ceFAZolin 3 gm In Sodium 100 Chloride 0.9% 100 ml @ 200 mls/hr IVPB Q8H [facility] Rx#:[id number] Output: Estimated Blood Loss 50 Other: Voiding Method Toilet # Voids 1 - Exam Left knee: Incision is clean, dry, and intact. The silver foam dressing is in good condition. There is minimal soft tissue swelling and ecchymosis surrounding the medial and lateral aspects of the incision. Calf is soft, no tenderness with palpation. Plantar flexion, dorsiflexion, EHL, FHL are intact. Sensory exam to light touch throughout the extremity is intact, dorsal pedis pulses 2+. - Labs Labs: Abnormal Lab Results - Last 24 Hours (Table) 12/28/22 12/28/22 12/28/22 Range/Units 11:06 15:11 21:28 POC Glucose (mg/dL) 150 H 148 H 196 H (70-110) mg/dL 12/29/22 Range/Units 05:39 POC Glucose (mg/dL) 147 H (70-110) mg/dL Assessment and Plan Assessment: 1. Left knee osteoarthritis - Postoperative day 1 status post left total knee arthroplasty Plan: 1. Left knee osteoarthritis - patient stable at bedside this morning. Surgery was performed yesterday, 12/28/2022 - left total knee arthroplasty. Patient does take Percocet 7.5 mg/325 mg at home primarily for her back. We will discontinue [place] and had no Percocet at this time. Continue gabapentin and Flexeril. PT/OT daily. Patient does have a walker for home. We will keep patient in hospital 1 more night for additional pain control. Plan for discharge home tomorrow with health services. 2. Appreciate medical management 3. Pain management - Percocet 7.5 mg/325 mg; gabapentin; Flexeril 4. GI prophylaxis - senna 5. DVT prophylaxis - Lovenox in hospital 6. PT/OT - weightbearing as tolerated with walker/assistance as needed 7. Encourage incentive spirometer use 8. Discharge planning - Plan for discharge home tomorrow with health services. Time with Patient: Less than 30
[2022-12-29 11:20] LABS: Glucose,Whole Blood 132 mg/dL (70-110)
[2022-12-29 11:34] LABS: Basophils # (A) 0.05 X 10*3/uL (0.00-0.10); Basophils % (A) 0.3 %; Eosinophils # (A) 0.01 X 10*3/uL (0.04-0.35); Eosinophils % (A) 0.1 %; HCT 41.1 % (37.2-46.3); HGB 12.2 d/dL (12.0-15.0); Lymphocytes # (A) 2.06 X 10*3/uL (0.90-5.00); Lymphocytes % (A) 13.7 %; MCH 27.4 pg (27.0-32.0); MCHC 29.7 d/dL (32.0-37.0); MCV 92.2 FL (80.0-97.0); Mean Platelet Volume 9.3 FL (9.5-12.2); Monocytes # (A) 1.15 X 10*3/uL (0.20-1.00); Monocytes % (A) 7.6 %; NRBC Per 100 WBC 0 X 10*3/uL (0.00-0.01); Neutrophils # (A) 11.73 X 10*3/uL (1.80-7.70); Platelet Count 482 X 10*3/uL (140-440); RBC 4.46 X 10*6/uL (4.10-5.20); RDW 14.7 % (11.5-14.5); WBC 15.05 X 10*3/uL (4.50-10.00)
[2022-12-29] MEDS: oxyCODONE-APAP 7.5-325MG 1 EACH TAB PO PRN ×2 (11:45→20:13)
[2022-12-29 11:48] LABS: BUN/Creat Ratio 18.29 Ratio (12.00-20.00); Blood Urea Nitrogen 12.8 mg/dL (9.0-27.0); Calcium 9.2 mg/dL (8.7-10.3); Carbon Dioxide 26.5 mmol/L (21.6-31.8); Chloride 103 mmol/L (96-109); Glucose 135 mg/dL (70-110); Potassium 4.5 mmol/L (3.5-5.5); Sodium 141 mmol/L (135-145)
[2022-12-29 16:21] LABS: Glucose,Whole Blood 156 mg/dL (70-110)
--- NOTE | 2022-12-29 17:16 | P.PN ---
Subjective Progress Note Date: 12/29/22 Hospital course: Patient is a very pleasant 52-year-old female with a past medical history of hypertension, hyperlipidemia, ius-ksumhnl-zgqtypqmo diabetes mellitus, hypothyroidism, COPD, and obstructive sleep apnea. She is currently admitted under orthopedic surgery team status post elective left total knee arthroplasty completed on 12/28/22 secondary to osteoarthritis. We have been consulted for medical management throughout patient's hospitalization. Physical exam: Patient seen and fully evaluated at bedside this morning. She reports persistent moderate postoperative pain. Patient reports [place] does not touch pain but IV pain medication Dilaudid has been working. Patient denies having any other complaints including headache, lightheadedness, dizziness, chest pain, palpitations, shortness of breath, abdominal pain, nausea, vomiting, or experiencing any numbness/tingling/focal weakness in her extremities. Patient reports urinating without any difficulties and tolerating a regular diet. Vital signs reviewed and stable. General: Nontoxic, no distress and appears stated age. Obese. Derm: Skin warm and dry, normal coloration for ethnicity. Head: Atraumatic, normocephalic and symmetric. Eyes: EOMs intact, no lid lag, and anicteric sclera Mouth: no lip lesions, mucus membranes moist Cardiovascular: regular rate and rhythm with normal S1S2, no murmur, positive posterior tibial pulses bilaterally, and cap refill < 2 seconds. Lungs: Respirations even, regular, and unlabored on room air. Lungs CTA bilaterally, no rhonchi, no rales, no wheezing, and no accessory muscle usage. Abdominal: soft, nontender to palpation, no guarding, no appreciable organome nayeli Ext: No gross muscle atrophy, no edema, no contractures movement and sensation intact.. Neuro: Speech clear, face symmetrical and CN II-XII grossly intact with no noted focal neuro deficits Psych: Alert and oriented to person, place, time, and situation. Appropriate and pleasant affect. Assessment and Plan of Care: Status post left total knee arthroplasty -Management per primary admitting orthopedic surgery team including DVT prophylaxis, pain management, weightbearing, and PT/OT. -Patient currently on DVT prophylaxis with Lovenox 30 mg every 12 hours Diabetes mellitus with hyperglycemia -Hold oral hypoglycemic medications including Farxiga, Glimepiride, Pioglitazone, Mounjaro and metformin. Patient was placed on glycemic protocol with NovoLog sliding scale. -Hemoglobin A1c resulting of 6.8% Leukocytosis and Thrombocytosis -Leukocytosis and thrombocytosis reactive secondary to surgical procedure. Hypertension Hyperlipidemia Hypothyroidism -Continue with daily medication regimen with atorvastatin 40 mg daily, levothyroxine 137 g daily, and losartan 100 mg daily. COPD, not in acute exacerbation Obstructive sleep apnea -Patient to be provided with oxygenation as needed, currently on room air. -Encourage incentive spirometry 10-15 times hourly while awake. -Continue Singulair 10 mg daily -Patient reports she does not sleep with CPAP or BiPAP. Data review: -Labs completed and reviewed. CBC showing leukocytosis with WBC count of 15.05 and thrombocytosis with platelet count of 482, this is believed to be reactive secondary to surgical procedure. BMP unremarkable with the exception of mildly elevated glucose of 135. Hemoglobin A1c did resulted at 6.8%. -Vital signs reviewed blood pressure 121/79, heart rate 92, respiratory rate 15, temp 97.7F, SpO2 of 90% on room air. Imaging review: -No new imaging for review. Thank you for allowing us to participate in the care of this pleasant patient. Do not hesitate to contact us with questions. Someone can be reached from the [facility] hospitalist group all hours of the day at [phone] or via [employer]. Patient was seen independently by Nurse Pracitioner. This document was prepared using [employer] dictation software. Please allow for errors in second hand, while rare they do occur. Shaan De Anda NP rendered care for this patient independently, reviewed the findings and plan as documented in the note above. I did not physically speak with or examine the patient on this date. Objective - Vital Signs Vital signs: Vital Signs Temp 97.7 F 12/29/22 07:50 Pulse 92 12/29/22 07:50 Resp 15 12/29/22 07:50 BP 121/79 12/29/22 07:50 Pulse Ox 98 12/29/22 07:50 FiO2 Intake & Output 12/28/22 12/29/22 12/29/22 18:59 06:59 18:59 Intake Total 2400 Output Total 50 Balance 2350 Weight 124.3 kg Intake: IV 1500 Intake, IV Titration 900 Amount Lactated Ringers 1,000 ml 800 @ 100 mls/hr IV .Q10H [facility] Rx#:[id number] ceFAZolin 3 gm In Sodium 100 Chloride 0.9% 100 ml @ 200 mls/hr IVPB Q8H [facility] Rx#:[id number] Output: Estimated Blood Loss 50 Other: Voiding Method Toilet # Voids 1 - Labs CBC & Chem 7: 12/29/22 07:27 12/29/22 07:27 Labs: Abnormal Lab Results - Last 24 Hours (Table) 12/28/22 12/28/22 12/28/22 Range/Units 11:06 15:11 21:28 POC Glucose (mg/dL) 150 H 148 H 196 H (70-110) mg/dL 12/29/22 Range/Units 05:39 POC Glucose (mg/dL) 147 H (70-110) mg/dL
[2022-12-29] MEDS: SENNOSIDES-DOCUSATE SODIUM 1 EACH TAB PO SCH (20:13)
[2022-12-29 20:44] LABS: Glucose,Whole Blood 151 mg/dL (70-110)
[2022-12-30] MEDS: HYDROmorphone 0.5 MG/0.5 ML SYRINGE IVP PRN (00:38)
[2022-12-30] MEDS: LACTATED RINGERS 1,000 ML IV SCH ×2 (00:39→15:33)
[2022-12-30] MEDS: oxyCODONE-APAP 7.5-325MG 1 EACH TAB PO PRN ×3 (05:19→21:11)
[2022-12-30] MEDS: LEVOTHYROXINE 137 MCG TAB PO SCH (05:30)
[2022-12-30] MEDS: HYDROmorphone 1 MG/ML 1 ML SYRINGE IVP PRN (06:17)
[2022-12-30 06:28] LABS: Glucose,Whole Blood 159 mg/dL (70-110)
[2022-12-30] MEDS: INSULIN ASPART (NovoLOG) 100 UNIT/ML VIAL SQ SCH ×4 (06:42→21:12)
[2022-12-30] MEDS ORDERED: hydrOXYzine pamoate 25 MG CAP PO SCH (09:00)
[2022-12-30] MEDS: GABAPENTIN 400 MG CAP PO SCH ×3 (09:21→21:12)
[2022-12-30] MEDS: ATORVASTATIN 40 MG TAB PO SCH (09:21)
[2022-12-30] MEDS: DULoxetine HCL 60 MG CAPSULE.DR PO SCH (09:21)
[2022-12-30] MEDS: ENOXAPARIN 30 MG/0.3 ML SYRINGE SQ SCH ×2 (09:21→21:12)
[2022-12-30] MEDS: MONTELUKAST 10 MG TAB PO SCH (09:22)
[2022-12-30] MEDS: SERTRALINE 50 MG TAB PO SCH (09:22)
[2022-12-30] MEDS: ARIPiprazole 5 MG TAB PO SCH (09:22)
[2022-12-30] MEDS: LOSARTAN 50 MG TAB PO SCH (09:22)
[2022-12-30] MEDS: MULTIVITAMINS, THERA 1 EACH TAB PO SCH (11:02)
[2022-12-30 11:10] LABS: Glucose,Whole Blood 129 mg/dL (70-110)
--- NOTE | 2022-12-30 15:06 | P.PN ---
Subjective Progress Note Date: 12/30/22 Hospital course: Patient is a very pleasant 52-year-old female with a past medical history of hypertension, hyperlipidemia, pfc-rcvqikx-olkhtotkw diabetes mellitus, hypothyroidism, COPD, and obstructive sleep apnea. She is currently admitted under orthopedic surgery team status post elective left total knee arthroplasty completed on 12/28/22 secondary to osteoarthritis. We have been consulted for medical management throughout patient's hospitalization. Physical exam: Patient seen and fully evaluated at bedside this morning. She continues to report persistent uncontrolled postoperative pain requiring IV Dilaudid administration. Discussed plan of care with orthopedic surgery PA, reports they will be making some medication changes and planning to discharge patient to [facility] tomorrow morning. Patient denies having any other complaints including headache, lightheadedness, dizziness, chest pain, palpitations, shortness of breath, abdominal pain, nausea, vomiting, or experiencing any numbness/tingling/focal weakness in her extremities. Patient reports having difficult time with physical therapy secondary to uncontrolled pain. Vital signs reviewed and stable. General: Nontoxic, no distress and appears stated age. Obese. Derm: Skin warm and dry, normal coloration for ethnicity. Head: Atraumatic, normocephalic and symmetric. Eyes: EOMs intact, no lid lag, and anicteric sclera Mouth: no lip lesions, mucus membranes moist Cardiovascular: regular rate and rhythm with normal S1S2, no murmur, positive posterior tibial pulses bilaterally, and cap refill < 2 seconds. Lungs: Respirations even, regular, and unlabored on room air. Lungs CTA cathryn aterally, no rhonchi, no rales, no wheezing, and no accessory muscle usage. Abdominal: soft, nontender to palpation, no guarding, no appreciable organomegaly Ext: No gross muscle atrophy, no edema, no contractures movement and sensation intact.. Neuro: Speech clear, face symmetrical and CN II-XII grossly intact with no noted focal neuro deficits Psych: Alert and oriented to person, place, time, and situation. Appropriate and pleasant affect. Assessment and Plan of Care: Status post left total knee arthroplasty -Management per primary admitting orthopedic surgery team including DVT prophyl axis, pain management, weightbearing, and PT/OT. -Patient currently on DVT prophylaxis with Lovenox 30 mg every 12 hours Diabetes mellitus with hyperglycemia with hemoglobin A1c of 6.8% -Hold oral hypoglycemic medications including Farxiga, Glimepiride, Pioglitazone, Mounjaro and metformin. Patient was placed on glycemic protocol with NovoLog sliding scale. -Hemoglobin A1c resulting of 6.8% Leukocytosis and Thrombocytosis -Leukocytosis and thrombocytosis reactive secondary to surgical procedure. -Order placed for repeat CBC tomorrow morning to monitor for improvement/resolution Hypertension Hyperlipidemia Hypothyroidism -Continue with daily medication regimen with atorvastatin 40 mg daily, levothyroxine 137 g daily, and losartan 100 mg daily. COPD, not in acute exacerbation Obstructive sleep apnea -Patient to be provided with oxygenation as needed, currently on room air. -Encourage incentive spirometry 10-15 times hourly while awake. -Continue Singulair 10 mg daily -Patient reports she does not sleep with CPAP or BiPAP. Data review: -Blood glucose levels reviewed and have been controlled ranging between 129 and 159 over the past 24 hours. -Vital signs reviewed blood pressure 104/74, heart rate 93, respiratory rate 14, temp 98.2F, and SpO2 of 90% on room air. Imaging review: -No new imaging for review.. Medically, patient is stable for discharge once cleared by primary admitting orthopedic surgery team. Thank you for allowing us to participate in the care of this pleasant patient. Do not hesitate to contact us with questions. Someone can be reached from the [facility] hospitalist group all hours of the day at [phone] or via [employer]. Patient was seen independently by Nurse Pracitioner. This document was prepared using [employer] dictation software. Please allow for errors in thermo cementing folder operator, while rare they do occur. I reviewed the documentation as provided by the CHIP above, who is the original author of this note. I agree with the documented assessment and plan, with the following changes: none Objective - Vital Signs Vital signs: Vital Signs Temp 98.2 F 12/30/22 06:58 Pulse 93 12/30/22 06:58 Resp 14 12/30/22 06:58 BP 104/74 12/30/22 06:58 Pulse Ox 90 L 12/30/22 06:58 FiO2 Intake & Output 12/29/22 12/30/22 12/30/22 18:59 06:59 18:59 Intake Total 800 Balance 800 Intake: Intake, IV Titration 800 Amount Lactated Ringers 1,000 ml 800 @ 100 mls/hr IV .Q10H [facility] Rx#:[id number] Other: Voiding Method Toilet # Voids 2 - Labs CBC & Chem 7: 12/29/22 07:27 12/29/22 07:27 Labs: Abnormal Lab Results - Last 24 Hours (Table) 12/29/22 12/29/22 12/29/22 Range/Units 07:27 07:27 07:27 WBC 15.05 H (4.50-10.00) X 10*3/uL MCHC 29.7 L (32.0-37.0) d/dL RDW 14.7 H (11.5-14.5) % Plt Count 482 H (140-440) X 10*3/uL MPV 9.3 L (9.5-12.2) FL Neutrophils # 11.73 H (1.80-7.70) X 10*3/uL Monocytes # 1.15 H (0.20-1.00) X 10*3/uL Eosinophils # 0.01 L (0.04-0.35) X 10*3/uL Glucose 135 H (70-110) mg/dL POC Glucose (mg/dL) (70-110) mg/dL Hemoglobin A1c 6.8 H (<=6.0) % 12/29/22 12/29/22 12/29/22 Range/Units 11:18 16:20 20:43 WBC (4.50-10.00) X 10*3/uL MCHC (32.0-37.0) d/dL RDW (11.5-14.5) % Plt Count (140-440) X 10*3/uL MPV (9.5-12.2) FL Neutrophils # (1.80-7.70) X 10*3/uL Monocytes # (0.20-1.00) X 10*3/uL Eosinophils # (0.04-0.35) X 10*3/uL Glucose (70-110) mg/dL POC Glucose (mg/dL) 132 H 156 H 151 H (70-110) mg/dL Hemoglobin A1c (<=6.0) % 12/30/22 Range/Units 06:27 WBC (4.50-10.00) X 10*3/uL MCHC (32.0-37.0) d/dL RDW (11.5-14.5) % Plt Count (140-440) X 10*3/uL MPV (9.5-12.2) FL Neutrophils # (1.80-7.70) X 10*3/uL Monocytes # (0.20-1.00) X 10*3/uL Eosinophils # (0.04-0.35) X 10*3/uL Glucose (70-110) mg/dL POC Glucose (mg/dL) 159 H (70-110) mg/dL Hemoglobin A1c (<=6.0) %
[2022-12-30] MEDS: hydrOXYzine pamoate 25 MG CAP PO SCH ×2 (15:29→21:12)
[2022-12-30 16:24] LABS: Glucose,Whole Blood 137 mg/dL (70-110)
[2022-12-30 20:40] LABS: Glucose,Whole Blood 153 mg/dL (70-110)
[2022-12-30] MEDS: SENNOSIDES-DOCUSATE SODIUM 1 EACH TAB PO SCH (21:12)
[2022-12-31] MEDS: LACTATED RINGERS 1,000 ML IV SCH ×3 (02:06→19:54)
[2022-12-31 06:26] LABS: Glucose,Whole Blood 110 mg/dL (70-110)
[2022-12-31] MEDS: INSULIN ASPART (NovoLOG) 100 UNIT/ML VIAL SQ SCH ×4 (06:29→21:15)
[2022-12-31] MEDS: LEVOTHYROXINE 137 MCG TAB PO SCH (06:43)
[2022-12-31] MEDS: oxyCODONE-APAP 7.5-325MG 1 EACH TAB PO PRN ×3 (06:44→20:01)
[2022-12-31] MEDS: HYDROmorphone 1 MG/ML 1 ML SYRINGE IVP PRN (08:11)
[2022-12-31] MEDS: DULoxetine HCL 60 MG CAPSULE.DR PO SCH (09:53)
[2022-12-31] MEDS: ENOXAPARIN 30 MG/0.3 ML SYRINGE SQ SCH ×2 (09:53→20:00)
[2022-12-31] MEDS: ARIPiprazole 5 MG TAB PO SCH (09:53)
[2022-12-31] MEDS: ATORVASTATIN 40 MG TAB PO SCH (09:53)
[2022-12-31] MEDS: GABAPENTIN 400 MG CAP PO SCH ×3 (09:53→20:01)
[2022-12-31] MEDS: MONTELUKAST 10 MG TAB PO SCH (09:53)
[2022-12-31] MEDS: LOSARTAN 50 MG TAB PO SCH (09:54)
[2022-12-31] MEDS: hydrOXYzine pamoate 25 MG CAP PO SCH ×3 (09:54→20:00)
[2022-12-31] MEDS: SERTRALINE 50 MG TAB PO SCH (09:54)
--- NOTE | 2022-12-31 10:37 | P.PN ---
Subjective Progress Note Date: 12/31/22 Principal diagnosis: Status post left total knee arthroplasty Patient was evaluated today at bedside, she is resting in her hospital chair. She states the pain is a little bit better under control today. She still continues to have difficulty with physical therapy with ambulation requiring a lot of assistance. We have discussed subacute rehab the patient is hoping she can be discharged with her, we are working with case management regarding this. Denies headaches, lightheadedness, chest pain or shortness of breath. Objective - Vital Signs Vital signs: Vital Signs Temp 96.8 F L 12/31/22 07:49 Pulse 89 12/31/22 07:49 Resp 16 12/31/22 07:49 BP 157/85 12/31/22 07:49 Pulse Ox 94 L 12/31/22 10:00 FiO2 Intake & Output 12/30/22 12/31/22 12/31/22 18:59 06:59 18:59 Intake Total 800 Balance 800 Intake: Intake, IV Titration 800 Amount Lactated Ringers 1,000 ml 800 @ 100 mls/hr IV .Q10H [facility] Rx#:[id number] Other: # Voids 1 1 - Exam Left lower extremity: Incision is clean, dry, and intact. The foam dressing is in good condition. There is minimal soft tissue swelling and ecchymosis surrounding the medial and lateral aspects of the incision. Calf is soft, no tenderness with palpation. Plantar flexion, dorsiflexion, EHL, FHL are intact. Sensory exam to light touch throughout the extremity is intact, dorsal pedis pulses 2+. - Labs CBC & Chem 7: 12/29/22 07:27 12/29/22 07:27 Labs: Abnormal Lab Results - Last 24 Hours (Table) 12/30/22 12/30/22 12/30/22 Range/Units 11:09 16:23 20:40 POC Glucose (mg/dL) 129 H 137 H 153 H (70-110) mg/dL Assessment and Plan Assessment: Postoperative day #3 status post left total knee arthroplasty Plan: Pain control, continue with current medications DVT prophylaxis, continue with subcu medication while in hospital Wound care, continue to monitor surgical dressing Daily PT/OT Icing and elevating techniques discussed Encourage incentive spirometer Medical recommendations appreciated Discharge planning: Waiting on prior authorization for subacute rehab, patient stable via orthopedics standpoint for discharge Time with Patient: Less than 30
[2022-12-31 11:08] LABS: Glucose,Whole Blood 139 mg/dL (70-110)
[2022-12-31 11:13] LABS: Basophils # (A) 0.07 X 10*3/uL (0.00-0.10); Basophils % (A) 0.5 %; Eosinophils # (A) 0.65 X 10*3/uL (0.04-0.35); Eosinophils % (A) 5.1 %; HCT 38.9 % (37.2-46.3); HGB 11.7 d/dL (12.0-15.0); Lymphocytes # (A) 3.17 X 10*3/uL (0.90-5.00); Lymphocytes % (A) 24.7 %; MCH 27.5 pg (27.0-32.0); MCHC 30.1 d/dL (32.0-37.0); MCV 91.3 FL (80.0-97.0); Mean Platelet Volume 9.5 FL (9.5-12.2); Monocytes # (A) 0.83 X 10*3/uL (0.20-1.00); Monocytes % (A) 6.5 %; NRBC Per 100 WBC 0 X 10*3/uL (0.00-0.01); Neutrophils # (A) 8.03 X 10*3/uL (1.80-7.70); Neutrophils % (A) 62.7 %; Platelet Count 429 X 10*3/uL (140-440); RBC 4.26 X 10*6/uL (4.10-5.20); RDW 15.1 % (11.5-14.5); WBC 12.82 X 10*3/uL (4.50-10.00)
[2022-12-31 11:20] LABS: BUN/Creat Ratio 16.29 Ratio (12.00-20.00); Blood Urea Nitrogen 11.4 mg/dL (9.0-27.0); Calcium 9.2 mg/dL (8.7-10.3); Carbon Dioxide 28.2 mmol/L (21.6-31.8); Chloride 103 mmol/L (96-109); Glucose 127 mg/dL (70-110); Sodium 143 mmol/L (135-145)
[2022-12-31] MEDS: MULTIVITAMINS, THERA 1 EACH TAB PO SCH (11:30)
--- NOTE | 2022-12-31 11:38 | P.PN ---
Subjective Progress Note Date: 12/31/22 Patient is a 52-year-old female with hypertension, dyslipidemia, bbr-garvvur-xarwcxunt diabetes as well as multiple other comorbid conditions who presented for elective left total knee arthroplasty. Patient seen and examined at bedside. Doing well. Feeling much better than yesterday. Pain is controlled. Denies any chest pain or shortness of breath. We discussed that she should monitor blood sugars closely at home on discharge. Vital signs reviewed General: nontoxic, no distress, appears at stated age Cardiovascular: S1S2 reg, no murmur, positive posterior tibial pulse bilateral, Lungs: CTA bilateral, no rhonchi, no rales , no accessory muscle use Ext: no gross muscle atrophy, no edema b/l lower extremities, no contractures Neuro: CN II-XI grossly intact, no focal neuro deficits Psych: Alert, oriented, appropriate affect Assessment/Plan: 52-year-old female status post left total knee arthroplasty Diabetes type II well-controlled with A1c of 6.8 -Continue to hold home medications -Sliding-scale insulin Leukocytes, reactive - improving - repeat CBC in 1 week HTN HLD Hypothyroidism -Continue with daily medication regimen with atorvastatin 40 mg daily, levothyroxine 137 g daily, and losartan 100 mg daily. Chronic: COPD, not in acute exacerbation Obstructive sleep apnea Class III obesity Thrombocytosis, resolved Medically optimized for discharge at the discretion of ortho. Imaging: None new Data Review: Vitals temperature 96.8, pulse 89, respirations 16, blood pressure 157/85, O2 sat 94% on room air Labs remarkable for white blood cell count 12.8 Thank you for allowing us to participate in the care of this pleasant patient. Do not hesitate to contact us with questions. Someone can be reached from the [facility] hospitalist group all hours of the day at [phone] or via [employer]. This dictation was prepared using [employer] voice recognition software. Though every attempt is made to correct errors during dictation some may still exist. Objective - Vital Signs Vital signs: Vital Signs Temp 96.8 F L 12/31/22 07:49 Pulse 89 12/31/22 07:49 Resp 16 12/31/22 07:49 BP 157/85 12/31/22 07:49 Pulse Ox 94 L 12/31/22 10:00 FiO2 Intake & Output 12/30/22 12/31/22 12/31/22 18:59 06:59 18:59 Intake Total 800 Balance 800 Intake: Intake, IV Titration 800 Amount Lactated Ringers 1,000 ml 800 @ 100 mls/hr IV .Q10H [facility] Rx#:[id number] Other: # Voids 1 1 - Labs CBC & Chem 7: 12/31/22 06:38 12/31/22 06:38 Labs: Abnormal Lab Results - Last 24 Hours (Table) 12/30/22 12/30/22 12/31/22 Range/Units 16:23 20:40 06:38 WBC (4.50-10.00) X 10*3/uL Hgb (12.0-15.0) d/dL MCHC (32.0-37.0) d/dL RDW (11.5-14.5) % Neutrophils # (1.80-7.70) X 10*3/uL Eosinophils # (0.04-0.35) X 10*3/uL Glucose 127 H (70-110) mg/dL POC Glucose (mg/dL) 137 H 153 H (70-110) mg/dL 12/31/22 12/31/22 Range/Units 06:38 11:07 WBC 12.82 H (4.50-10.00) X 10*3/uL Hgb 11.7 L (12.0-15.0) d/dL MCHC 30.1 L (32.0-37.0) d/dL RDW 15.1 H (11.5-14.5) % Neutrophils # 8.03 H (1.80-7.70) X 10*3/uL Eosinophils # 0.65 H (0.04-0.35) X 10*3/uL Glucose (70-110) mg/dL POC Glucose (mg/dL) 139 H (70-110) mg/dL
[2022-12-31] MEDS: HYDROmorphone 0.5 MG/0.5 ML SYRINGE IVP PRN (15:51)
[2022-12-31 16:44] LABS: Glucose,Whole Blood 130 mg/dL (70-110)
[2022-12-31] MEDS: SENNOSIDES-DOCUSATE SODIUM 1 EACH TAB PO SCH (19:52)
[2022-12-31 20:47] LABS: Glucose,Whole Blood 133 mg/dL (70-110)
[2023-01-01 02:29] VITALS: RESP 18; TEMP 98.2
[2023-01-01] MEDS: oxyCODONE-APAP 7.5-325MG 1 EACH TAB PO PRN (05:30)
[2023-01-01 06:09] LABS: Glucose,Whole Blood 130 mg/dL (70-110)
[2023-01-01] MEDS: INSULIN ASPART (NovoLOG) 100 UNIT/ML VIAL SQ SCH ×2 (06:16→11:25)
[2023-01-01] MEDS: LEVOTHYROXINE 137 MCG TAB PO SCH (06:16)
[2023-01-01] MEDS: LACTATED RINGERS 1,000 ML IV SCH (06:17)
[2023-01-01 07:28] VITALS: PULSE 81
[2023-01-01] MEDS ORDERED: oxyCODONE-APAP 10-325MG 1 EACH TAB PO PRN (09:19)
--- NOTE | 2023-01-01 09:37 | P.PN ---
Subjective Progress Note Date: 01/01/23 Patient is a 52-year-old female with hypertension, dyslipidemia, suw-nzxuhzm-jdtygukut diabetes as well as multiple other comorbid conditions who presented for elective left total knee arthroplasty. Patient seen and examined at bedside. Still struggling with pain, + BM, + Edema Vital signs reviewed General: nontoxic, no distress, appears at stated age Cardiovascular: S1S2 reg, no murmur, positive posterior tibial pulse bilateral, Lungs: CTA bilateral, no rhonchi, no rales , no accessory muscle use Ext: no gross muscle atrophy, 2+ edema R lower extremities, no contractures Neuro: CN II-XI grossly intact, no focal neuro deficits Psych: Alert, oriented, appropriate affect Assessment/Plan: 52-year-old female status post left total knee arthroplasty Post-op pain -Patient takes Percocet 7.5 mg twice daily at home. She is still having uncontrolled pain and has been requesting Dilaudid. Will increase Percocet to 10/325 during this acute pain episode and encourage the patient to use less dilaudid - Lasix 20 mg IVP X 1 now and stop IVF to see if decrease in edema will help with pain. Diabetes type II well-controlled with A1c of 6.8 -Continue to hold home medications -Sliding-scale insulin Leukocytes, reactive - repeat CBC in 1 week HTN HLD Hypothyroidism -Continue with daily medication regimen with atorvastatin 40 mg daily, levothyroxine 137 g daily, and losartan 100 mg daily. Chronic: COPD, not in acute exacerbation Obstructive sleep apnea Class III obesity Thrombocytosis, resolved Medically optimized for discharge at the discretion of ortho. Imaging: None new Data Review: Vitals reviewed. Temperature 98.2, pulse 81, respirations 18, blood pressure 128/83, O2 sat 92% on room air Sugars reviewed in a.m. fasting 130 the remainder of her sugars yesterday were between 139 to 130. Thank you for allowing us to participate in the care of this pleasant patient. Do not hesitate to contact us with questions. Someone can be reached from the [facility] hospitalist group all hours of the day at [phone] or via [employer]. This dictation was prepared using [email or web address] voice recognition software. Though every attempt is made to correct errors during dictation some may still exist. Objective - Vital Signs Vital signs: Vital Signs Temp 98.2 F 01/01/23 07:10 Pulse 81 01/01/23 07:10 Resp 18 01/01/23 07:10 BP 128/83 01/01/23 07:10 Pulse Ox 93 L 01/01/23 08:12 FiO2 Intake & Output 12/31/22 01/01/23 01/01/23 18:59 06:59 18:59 Other: # Voids 4 1 1 # Bowel Movements 1 1 - Labs CBC & Chem 7: 12/31/22 06:38 12/31/22 06:38 Labs: Abnormal Lab Results - Last 24 Hours (Table) 12/31/22 12/31/22 12/31/22 Range/Units 06:38 06:38 11:07 WBC 12.82 H (4.50-10.00) X 10*3/uL Hgb 11.7 L (12.0-15.0) d/dL MCHC 30.1 L (32.0-37.0) d/dL RDW 15.1 H (11.5-14.5) % Neutrophils # 8.03 H (1.80-7.70) X 10*3/uL Eosinophils # 0.65 H (0.04-0.35) X 10*3/uL Glucose 127 H (70-110) mg/dL POC Glucose (mg/dL) 139 H (70-110) mg/dL 12/31/22 12/31/22 01/01/23 Range/Units 16:43 20:46 06:08 WBC (4.50-10.00) X 10*3/uL Hgb (12.0-15.0) d/dL MCHC (32.0-37.0) d/dL RDW (11.5-14.5) % Neutrophils # (1.80-7.70) X 10*3/uL Eosinophils # (0.04-0.35) X 10*3/uL Glucose (70-110) mg/dL POC Glucose (mg/dL) 130 H 133 H 130 H (70-110) mg/dL
[2023-01-01] MEDS: SERTRALINE 50 MG TAB PO SCH (09:51)
[2023-01-01] MEDS: GABAPENTIN 400 MG CAP PO SCH (09:51)
[2023-01-01] MEDS: ENOXAPARIN 30 MG/0.3 ML SYRINGE SQ SCH (09:51)
[2023-01-01] MEDS: LOSARTAN 50 MG TAB PO SCH (09:53)
[2023-01-01] MEDS: ATORVASTATIN 40 MG TAB PO SCH (09:54)
[2023-01-01] MEDS: MONTELUKAST 10 MG TAB PO SCH (09:54)
[2023-01-01] MEDS: hydrOXYzine pamoate 25 MG CAP PO SCH (09:54)
[2023-01-01] MEDS: DULoxetine HCL 60 MG CAPSULE.DR PO SCH (09:54)
[2023-01-01] MEDS: ARIPiprazole 5 MG TAB PO SCH (09:55)
[2023-01-01] MEDS: MULTIVITAMINS, THERA 1 EACH TAB PO SCH (10:27)
[2023-01-01] MEDS: FUROSEMIDE 10 MG/ML 2 ML VIAL IV ONE ×2 (10:27→10:44)
[2023-01-01] MEDS ORDERED: FUROSEMIDE 40 MG TAB PO STA (10:45)
[2023-01-01 11:25] LABS: Glucose,Whole Blood 129 mg/dL (70-110)
--- NOTE | 2023-01-01 12:28 | P.PN ---
Subjective Progress Note Date: 01/01/23 Principal diagnosis: Status post left total knee arthroplasty Patient was evaluated today at bedside, she is resting in her hospital chair. oral pain medication dose was changed by internal medicine. She still continues to have difficulty with physical therapy with ambulation requiring a lot of assistance. . Denies headaches, lightheadedness, chest pain or shortness of breath. Objective - Vital Signs Vital signs: Vital Signs Temp 98.2 F 01/01/23 07:10 Pulse 81 01/01/23 07:10 Resp 18 01/01/23 07:10 BP 128/83 01/01/23 07:10 Pulse Ox 93 L 01/01/23 08:12 FiO2 Intake & Output 12/31/22 01/01/23 01/01/23 18:59 06:59 18:59 Other: # Voids 4 1 1 # Bowel Movements 1 1 - Exam Left lower extremity: Incision is clean, dry, and intact. The foam dressing is in good condition. There is minimal soft tissue swelling and ecchymosis surrounding the medial and lateral aspects of the incision. Calf is soft, no tenderness with palpation. Plantar flexion, dorsiflexion, EHL, FHL are intact. Sensory exam to light touch throughout the extremity is intact, dorsal pedis pulses 2+. - Labs CBC & Chem 7: 12/31/22 06:38 12/31/22 06:38 Labs: Abnormal Lab Results - Last 24 Hours (Table) 12/31/22 12/31/22 01/01/23 Range/Units 16:43 20:46 06:08 POC Glucose (mg/dL) 130 H 133 H 130 H (70-110) mg/dL 01/01/23 Range/Units 11:23 POC Glucose (mg/dL) 129 H (70-110) mg/dL Assessment and Plan Assessment: Postoperative day #4 status post left total knee arthroplasty Plan: Pain control, plan for discharge on Percocet 10 mg/325 mg DVT prophylaxis, continue Lovenox for the next 9 days Wound care, continue to monitor surgical dressing Daily PT/OT Icing and elevating techniques discussed Encourage incentive spirometer Medical recommendations appreciated Discharge planning: plan for discharge today Time with Patient: Less than 30
--- NOTE | 2023-01-01 12:35 | P.DS ---
Providers Date of admission: 12/29/22 09:21 Expected date of discharge: 01/01/23 Attending physician: Rigoberto Gonzalez Consults: 12/28/22 14:34 Consult Physician Routine Consulting Provider: Lisa Carpenter Consult Reason/Comments: Medical management Do you want consulting provider notified?: Yes Primary care physician: [facility] Course: Date of admission: 12/28/2022 Date of discharge: 01/01/2023 Admission diagnosis: status post left total knee arthroplasty Discharge diagnosis: same Attending physician: Dr. Gonzalez Surgical procedures: left total knee arthroplasty Brief history: Patient is a 52-year-old female with a history of progressive left knee osteoarthritis. At this point patient has failed conservative treatment measures and has opted to proceed with a elective left total knee arthroplasty. Hospital course: Details of patient's surgery can be found in operative report. Patient tolerated the procedure well and was subsequently transported to orthopedic floor. Patient's orthopeidc and medical care was provided daily. Patient had daily laboratory tests performed for evaluation of overall blood counts . Patient had daily physical therapy to include strengthening range of motion as well as education with walker ambulation. Patient was treated with lovenox for their postoperative DVT prophylaxis during their inpatient stay. Patient was noted to have a relatively uneventful postoperative course. Patient reported satisfactory pain control with oral pain medications by postoperative day 4. Patient showed satisfactory progress with physical therapy. Patient moved steadily through the program and had no difficulty meeting the goals by postoperative day 4. Given patient's otherwise satisfactory course and having met physical therapy goals, plan is to discharge patient rehab on postoperative day 4. Discharge condition/disposition: Patient will be discharged rehab in stable condition. Discharge medications: Instructions are given on resumption of patient's normal daily medications per primary care recommendation, in addition patient will be prescribed Percocet 10mg/325, Senna-S, Lovenox. Discharge instructions: 1. Wound care and infection precautions, keep incision dry and covered while showering, no lotions, creams, moisturizers. No soaking, tubs, pools, hottubs. Do not scrub over the incision. 2. Weight-bear as tolerated with walker / cane until follow-up. 3. Ice and elevate when necessary. Do not exceed 20 minutes per hour with ice pack. 4. Utilize compression sleeve until seen at first follow up appointment. 5. Visiting nursing care. 6. Home physical therapy including home CPM. 7. Pain meds and anticoagulants per prescription. 8. Pain medication has potential to cause constipation. Increase oral fluid and fiber intake. Contact primary care provider if you have not had a bowel movement within 48 hours after discharge 9. No anti-inflammatory medication until discussed at first post operative visit, this including Motrin, Aleve, Mobic, Diclofenac 10. Follow up in office at 2 weeks postop with Alberto Isbell PA-C/Alberto Gomez 11. Follow up with your primary care doctor 7-10 days after discharge. 12. Contact [facility] with any questions, . Procedures: left total knee arthroplasty Patient Condition at Discharge: Good Plan - Discharge Summary Discharge Rx Participant: No New Discharge Prescriptions: New Gabapentin [Neurontin] 400 mg PO TID 3 Days #9 cap Sennosides/Docusate Sodium [Senna-S 8.6-50 mg Tablet] 1 each PO DAILY PRN #30 tablet PRN Reason: Constipation Enoxaparin [Lovenox] 30 mg SQ Q12H 10 Days #20 each oxyCODONE HCL/ACETAMINOPHEN [Percocet 10-325 mg] 1 tab PO Q6HR PRN 3 Days #12 tab PRN Reason: Pain Continue Atorvastatin [Lipitor] 40 mg PO DAILY Aspirin 81 mg PO DAILY Gabapentin [Neurontin] 400 mg PO TID ARIPiprazole [Abilify] 5 mg PO DAILY Multivitamins, Thera [Multivitamin (formulary)] 1 tab PO DAILY Sertraline [Zoloft] 150 mg PO DAILY metFORMIN HCL ER [Glucophage XR] 500 mg PO BID Losartan Potassium 100 mg PO DAILY Levothyroxine Sodium [Synthroid] 137 mcg PO DAILY Cyclobenzaprine HCl 10 mg PO DAILY PRN PRN Reason: Muscle Pain Turmeric Root Extract [Turmeric] 1,200 mg PO DAILY Furosemide [Lasix] 20 mg PO DAILY Magnesium Oxide [Cuevas] 500 mg PO DAILY DULoxetine HCL [Cymbalta] 60 mg PO DAILY Montelukast [Singulair] 10 mg PO DAILY Tirzepatide [Mounjaro] 10 mg SQ RADER Pioglitazone HCl 30 mg PO DAILY Glimepiride [Amaryl] 4 mg PO DAILY Dapagliflozin Propanediol [Farxiga] 10 mg PO DAILY Cholecalciferol (Vitamin D3) [Vitamin D3 (125 MCG = 5,000 IU)] 125 mcg PO DAILY No Action oxyCODONE-APAP 7.5-325MG [Percocet 7.5-325 mg] 1 tab PO BID Discharge Medication List Aspirin 81 mg PO DAILY 04/18/16 [History] Atorvastatin [Lipitor] 40 mg PO DAILY 04/18/16 [History] ARIPiprazole [Abilify] 5 mg PO DAILY 12/01/19 [History] Gabapentin [Neurontin] 400 mg PO TID 12/01/19 [History] Multivitamins, Thera [Multivitamin (formulary)] 1 tab PO DAILY 12/01/19 [History] Cholecalciferol (Vitamin D3) [Vitamin D3 (125 MCG = 5,000 IU)] 125 mcg PO DAILY 05/16/21 [History] Cyclobenzaprine HCl 10 mg PO DAILY PRN 05/16/21 [History] Dapagliflozin Propanediol [Farxiga] 10 mg PO DAILY 05/16/21 [History] Furosemide [Lasix] 20 mg PO DAILY 05/16/21 [History] Glimepiride [Amaryl] 4 mg PO DAILY 05/16/21 [History] Levothyroxine Sodium [Synthroid] 137 mcg PO DAILY 05/16/21 [History] Losartan Potassium 100 mg PO DAILY 05/16/21 [History] Magnesium Oxide [Cuevas] 500 mg PO DAILY 05/16/21 [History] Pioglitazone HCl 30 mg PO DAILY 05/16/21 [History] Sertraline [Zoloft] 150 mg PO DAILY 05/16/21 [History] Turmeric Root Extract [Turmeric] 1,200 mg PO DAILY 05/16/21 [History] metFORMIN HCL ER [Glucophage XR] 500 mg PO BID 05/16/21 [History] DULoxetine HCL [Cymbalta] 60 mg PO DAILY 07/07/22 [History] Montelukast [Singulair] 10 mg PO DAILY 12/18/22 [History] Tirzepatide [Mounjaro] 10 mg SQ RADER 12/18/22 [History] oxyCODONE-APAP 7.5-325MG [Percocet 7.5-325 mg] 1 tab PO BID 12/18/22 [History] Enoxaparin [Lovenox] 30 mg SQ Q12H 10 Days #20 each 01/01/23 [Rx] Gabapentin [Neurontin] 400 mg PO TID 3 Days #9 cap 01/01/23 [Rx] Sennosides/Docusate Sodium [Senna-S 8.6-50 mg Tablet] 1 each PO DAILY PRN #30 tablet 01/01/23 [Rx] oxyCODONE HCL/ACETAMINOPHEN [Percocet 10-325 mg] 1 tab PO Q6HR PRN 3 Days #12 tab 01/01/23 [Rx] Follow up Appointment(s)/Referral(s): [facility],Equipment [NON-STAFF] - As Needed (Please call [facility] once home to arrange delivery of the Continuous Passive Motion (CPM) machine. ) [facility], [NON-STAFF] - 1-2 Days ([facility] will call you to schedule your in home nursing and physical therapy visits. ) Aaron Isbell PAC [PHYSICIAN SERVICE SPECIALIST] - 01/15/23 10:00 am Dani Jack DO [Primary Care Provider] - 1 Week Patient Instructions/Handouts: Knee Replacement (DC) Activity/Diet/Wound Care/Special Instructions: Orthopedic Discharge Instructions: 1. Wound care and infection precautions, keep incision dry and covered while showering, no lotions, creams, moisturizers. No soaking, pools, hot tubs. Do not scrub over incision. 2. Weight-bear as tolerated with walker / cane until follow-up. 3. Ice and elevate when necessary. Do not exceed 20 minutes per hour with ice pack. 4. Utilize compression sleeve until seen at first follow up appointment. 5. Pain meds and anticoagulants per prescription. 6. Pain medication has potential to cause constipation. Increase oral fluid and fiber intake. Contact primary care provider if you have not had a bowel movement within 48 hours after discharge. 7. No anti-inflammatory medication until discussed at first post operative visit, this including Motrin, Aleve, Mobic, Diclofenac 8. Follow up in office at 2 weeks postop with Alberto Isbell PA-C / Alberto Cruz PA-C 9. Follow up with your primary care doctor 7-10 days after discharge. 10. Contact [facility] with any questions, [phone]. 11. Check Blood sugar once daily for the next 7 days 12. CBC in 1 week DX: leukocytosis Keep incision clean, dry, intact. While showering, cover silver foam dressing with Saran wrap. Silver foam dressing may be removed on 01/04/2023. Once dressing is removed, it is okay to shower directly over incision. Discharge Disposition: HOME WITH HOME HEALTH SERVICES
[2023-01-01 13:52] VITALS: BP 144/85
== END 2023-01-01 15:11 | disposition home health service (06) ==
LOC: OR 10:32 → 4SSUR 14:58 → OR 12-29 09:21 → 4SSUR 12-29 20:44
PROVIDERS: ADMIT Orthopaedic Surgery; ATTEND Orthopaedic Surgery
DX: M17.12 Unilateral primary osteoarthritis, left knee (principal); I10 Essential (primary) hypertension; E11.9 Type 2 diabetes mellitus without complications; J45.909 Unspecified asthma, uncomplicated; E03.9 Hypothyroidism, unspecified; Z90.49 Acquired absence of other specified parts of digestive tract; Z98.891 History of uterine scar from previous surgery; Z79.84 Long term (current) use of oral hypoglycemic drugs; Z79.1 Long term (current) use of non-steroidal anti-inflammatories (NSAID); Z79.890 Hormone replacement therapy; Z79.82 Long term (current) use of aspirin; Z79.899 Other long term (current) drug therapy; Z88.2 Allergy status to sulfonamides; Z79.891 Long term (current) use of opiate analgesic
CPT/HCPCS: 94760 ×3; 97116; 97530 ×2; 97163; 97535; 97166; 81025; 64999; 64448; 80048 ×2; 85025 ×2; 83036; 73560; 27447; G0378 ×4; C1776; C1713 ×2; C1751; J2250; J0330; J0360; J1100; J2710; J0690 ×2; J2405; J3010; J1650 ×4; J1170 ×8; J2795 ×2; J2704; J2001

== ENCOUNTER → 2023-01-20 | Outpatient (CLI) | payer BC ==
--- NOTE | 2023-01-20 14:37 | XR ---
EXAMINATION TYPE: XR knee complete LT DATE OF EXAM: 01/20/2023 COMPARISON: 12/28/2022 HISTORY: Pain TECHNIQUE: Three views are submitted. FINDINGS: Components of the total knee arthroplasty are stable. There is a tiny amount of fluid versus patellar bursa. Tiny density adjacent to the anterior margin of the joint space likely chronic.. Osseous str uctures are intact. No acute fracture seen. Diffuse osteopenia. IMPRESSION: 1. No acute fracture or dislocation.
== END | disposition home or self-care (01) ==
LOC: RADXRYALE 14:11
PROVIDERS: ATTEND Physician Assistant Medical
DX: M25.562 Pain in left knee (principal); Z96.652 Presence of left artificial knee joint

== ENCOUNTER 2023-03-04 13:08 | Day surgery (SDC) | payer BC, OTHER ==
[2023-03-02 15:04] VITALS: BMI 46.3
--- NOTE | 2023-03-04 07:21 | HP ---
HISTORY AND PHYSICAL DATE OF SURGERY: 03/04/2023. HISTORY OF PRESENT ILLNESS: Virginia Eugene is a 52-year-old patient, seen with history of previous total knee arthroplasty. She was noted to have a residual area of distal incision that was not healing well. We discussed revision of the incision with debridement. She was agreeable. Consent was obtained. PAST MEDICAL HISTORY: Hypertension, hyperlipidemia, and hypothyroidism. PAST SURGICAL HISTORY: Total knee arthroplasty. DAILY MEDICATIONS: 1. Atorvastatin. 2. Gabapentin. 3. Glimepiride. 4. Levothyroxine. 5. Losartan. 6. Metformin. ALLERGIES: Sulfa. SOCIAL HISTORY: She denies tobacco use. PHYSICAL EVALUATION OF THE LEFT KNEE: Her incision is well healed other than the very distal portion of the incision, which is granulating in, but no evidence of any infective process. Her ligaments are stable. Her distal neurovascular exam is intact. IMAGING STUDIES: Radiographs of the left knee revealed a stable-appearing total knee arthroplasty. IMPRESSION: 1. Nonhealing distal incision wound. 2. History of left total knee arthroplasty. 3. Hypertension. 4. Hyperlipidemia. 5. Bzy-xnffely-[id number] diabetes. PLAN: Incision with irrigation, debridement, and revision incision, left knee. MMODL / IJN: [id number] /
[~2023-03-04 13:08] MED LIST changes: -ACETAMINOPHEN TAB 500 MG TAB PO PRN; +DEXAMETHASONE SOD PHOSPHATE 4 MG/ML 1 ML VIAL IV ONE; +LACTATED RINGERS 1,000 ML IV SCH; -MELOXICAM 7.5 MG TAB PO PRN; +ONDANSETRON 4 MG/2 ML VIAL IVP ONE; -TRANEXAMIC 1,000 MG/100ML-NACL 1,000 MG in SALINE 1 100ML.BAG IVPB PRN; -ceFAZolin 3 GM in SODIUM CHLORIDE 0.9% 100 ML IVPB PRN; +fentaNYL (PF) 50 MCG/ML 2 ML AMP IV PRN; +fentaNYL (PF) 50 MCG/ML 2 ML AMP IVP PRN
[2023-03-04 14:33] LABS: Glucose,Whole Blood 126 mg/dL (70-110)
[2023-03-04] MEDS ORDERED: ONDANSETRON 4 MG/2 ML VIAL ONE (14:35)
[2023-03-04] MEDS ORDERED: DEXAMETHASONE SOD PHOSPHATE 4 MG/ML 1 ML VIAL IVP ONE (14:38)
[2023-03-04] MEDS ORDERED: ONDANSETRON 4 MG/2 ML VIAL IVP ONE (14:39)
[2023-03-04] MEDS ORDERED: PROPOFOL 10 MG/ML 20 ML VIAL IV ONE (15:44)
[2023-03-04] MEDS ORDERED: MIDAZOLAM 2 MG/2 ML VIAL ONE (15:44)
[2023-03-04] MEDS ORDERED: KETOROLAC 15 MG/ML 1 ML VIAL ONE (15:44)
[2023-03-04] MEDS ORDERED: fentaNYL (PF) 50 MCG/ML 2 ML AMP ONE (15:44)
[2023-03-04] MEDS ORDERED: LIDOCAINE 2% INJ 20 MG/ML (2 ML VIAL) ONE (15:44)
[2023-03-04] MEDS ORDERED: SUCCINYLCHOLINE CHLORIDE 200 MG/10 ML VIAL IV ONE (15:44)
[2023-03-04] MEDS ORDERED: ceFAZolin 3,000 MG in SODIUM CHLORIDE 0.9% IRRIGATIO 3,000 ML IRRIGATION ONE (16:14)
--- NOTE | 2023-03-04 16:35 | P.OP ---
Date of Procedure: 03/04/23 Preoperative Diagnosis: Left knee distal incisional nonhealing wound Postoperative Diagnosis: Same Procedure(s) Performed: Irrigation and debridement with revision left knee distal incision Anesthesia: PIERRE Surgeon: Rigoberto Gonzalez Reciprocating Drill Operator #1: Aaron Isbell Estimated Blood Loss (ml): 7 Pathology: other (Cultures) Condition: stable Disposition: PACU Indications for Procedure: 52-year-old patient who was seen with a persistent nonhealing wound distal aspect of a left knee incision. I discussed irrigation debridement and revision of the incision. Patient was agreeable. Consent was obtained. Operative Findings: See description of procedure Description of Procedure: Patient was taken to the operative suite. She received preoperative IV antibiotics. She underwent a general anesthetic by the department of anesthesia. The left knee was now prepped and draped in the normal sterile orthopedic fashion. I removed the eschar and noted some serous tinged fluid deep in the wound. I washed it out and explored deeper and took deep cultures of this. I now used a #15 blade to excise the margins of the nonhealing wound. I then used the 15 blade to excisionally debride some abnormal appearing tissue along the periphery of that wound. It involved the subcutaneous soft tissues. It did not go into the tendon area. At this point it appeared that all abnormal tissue was excisionally debrided out appropriately. I now irrigated the wound out copiously with 3000 mL of antibiotic irrigant utilizing pulse lavage irrigation with the assistance of Alberto SEAMAN. I now explored the wound one more time and noted again that it was no residual abnormal tissue remaining there. We now placed sterile accelerate in the wound. With the assistance of Alberto SEAMAN we now approximated the wound margins utilizing 2-0 nylon suture. We had achieved reasonable approximation of this wound. I applied a sterile Adaptic foam over the wound. Sterile dressings followed by loose Hubert bandage ap plied over that. The patient was awakened, transferred to recovery stable satisfactory condition having tolerated procedure well. Alberto SEAMAN assisted with all aspects of this procedure.
[2023-03-04 16:44] VITALS: RESP 16; TEMP 97
[2023-03-04 17:42] VITALS: BP 108/77; PULSE 93
== END 2023-03-04 17:53 | disposition home or self-care (01) ==
LOC: OR 13:08
PROVIDERS: ATTEND Orthopaedic Surgery
DX: T81.31XA Disruption of external operation (surgical) wound, not elsewhere classified, initial encounter (principal); E03.9 Hypothyroidism, unspecified; E11.9 Type 2 diabetes mellitus without complications; E78.5 Hyperlipidemia, unspecified; I10 Essential (primary) hypertension; Z79.84 Long term (current) use of oral hypoglycemic drugs; Z88.2 Allergy status to sulfonamides; Z96.652 Presence of left artificial knee joint; Z79.890 Hormone replacement therapy; Z79.899 Other long term (current) drug therapy; Y83.8 Other surgical procedures as the cause of abnormal reaction of the patient, or of later complication, without mention of misadventure at the time of the procedure
CPT/HCPCS: 11042; 87070; 87205; 87075; J2250; J0330; J1100; J0690 ×2; J2405; J3010; J1885; J2704; J2001

== ENCOUNTER → 2023-03-04 | Outpatient (CLI) | payer BC, OTHER ==
[2023-03-04 13:08] LABS: Basophils # (A) 0.1 k/uL (0-0.2); Basophils % (A) 1 %; Eosinophils # (A) 0.6 k/uL (0-0.7); Eosinophils % (A) 5 %; HGB 13.9 gm/dL (11.4-16.0); Hypochromasia Slight; Lymphocytes # (A) 3.3 k/uL (1.0-4.8); Lymphocytes % (A) 27 %; MCH 27.9 pg (25.0-35.0); MCHC 30.9 g/dL (31.0-37.0); MCV 90.2 fL (80.0-100.0); Monocytes # (A) 0.4 k/uL (0-1.0); Monocytes % (A) 4 %; Neutrophils # (A) 7.6 k/uL (1.3-7.7); Neutrophils % (A) 62 %; Platelet Count 415 k/uL (150-450); RBC 4.99 m/uL (3.80-5.40); RDW 14.4 % (11.5-15.5); WBC 12.1 k/uL (3.8-10.6)
[2023-03-04 20:19] LABS: ALT 31 U/L (8-44); AST 30 U/L (13-35); Albumin 4.4 d/dL (3.8-4.9); Albumin/Globulin Ratio 1.57 Ratio (1.60-3.17); Alkaline Phosphatase 133 U/L (41-126); Carbon Dioxide 21.8 mmol/L (21.6-31.8); Chloride 103 mmol/L (96-109); Chol/HDL Ratio 2.69 Ratio; Globulin 2.8 d/dL (1.6-3.3); Glucose 159 mg/dL (70-110); LDL Cholesterol,Calculated 66.3 mg/dL (0.0-131.0); Potassium 4.7 mmol/L (3.5-5.5); Sodium 141 mmol/L (135-145); T4, Free (Free Thyroxine) 1.42 ng/dL (0.80-1.80); Total Bilirubin 0.3 mg/dL (0.3-1.2); Total Protein 7.2 d/dL (6.2-8.2)
== END | disposition home or self-care (01) ==
LOC: LABWHC1 12:26
PROVIDERS: ATTEND Physician Assistant Medical
DX: E11.21 Type 2 diabetes mellitus with diabetic nephropathy (principal); E11.59 Type 2 diabetes mellitus with other circulatory complications; E11.65 Type 2 diabetes mellitus with hyperglycemia; E11.69 Type 2 diabetes mellitus with other specified complication; E03.9 Hypothyroidism, unspecified; E55.9 Vitamin D deficiency, unspecified
CPT/HCPCS: 36415; 80053; 80061; 82043; 82306; 82570; 84439; 84443; 85025

== ENCOUNTER → 2023-06-17 | Outpatient (CLI) | payer OTHER ==
--- NOTE | 2023-06-18 13:24 | MM ---
Reason for Exam: Screening (asymptomatic). Last mammogram was performed 1 year(s) and 1 month(s) ago. Patient History: Menarche at age 8. First Full-Term at age 32. Late child-bearing (after 30). Postmenopausal. Hormonal Contraceptives for 20 years from age 16 until age 51. Maternal cousin had breast cancer, age 30. Sister had ovarian cancer under age 50. Risk Values: Omaira 5 year model risk: 1.7%. NCI Lifetime model risk: 12.4%. Prior Study Comparison: 08/14/2015 Bilateral Screening Mammogram, [facility]. 08/17/2016 Bilateral Screening Mammogram, [facility]. 01/08/2020 Bilateral Screening Mammogram, [facility]. 04/03/2021 Bilateral Screening Mammogram, [facility]. 04/22/2022 Bilateral MG screening mammo w CAD, [facility]. Tissue Density: The breast tissue is almost entirely fat. Findings: Analyzed By CAD. There is no suspicious group of microcalcifications or new suspicious mass. Benign-appearing calcifications bilaterally. Overall Assessment: Benign, BI-RAD 2 Management: Screening Mammogram of both breasts in [address] [facility] will attempt to contact patient to return for supplemental views and ultrasound if indicated. Patient should continue monthly self-breast exams. A clinical breast exam by your physician is recommended on an annual basis. This exam should not preclude additional follow-up of suspicious palpable abnormalities. Note on Omaira scores and lifetime risk: 1. A Omaira score greater than 3% is considered moderate risk. If this is the case, consider specialist referral to assess eligibility for a risk reducing agent. 2. If overall lifetime risk for the development of breast cancer is 20% or higher, the patient may qualify for future screening with alternating mammogram and breast MRI. Electronically signed and approved by: Bib Castro DO
== END | disposition home or self-care (01) ==
LOC: RADMAMWWP 09:53
PROVIDERS: ATTEND Family Medicine
DX: Z12.31 Encounter for screening mammogram for malignant neoplasm of breast (principal); Z80.3 Family history of malignant neoplasm of breast; Z78.0 Asymptomatic menopausal state
CPT/HCPCS: 77067

== ENCOUNTER → 2024-03-06 | Outpatient (CLI) | payer OTHER ==
[2024-03-06 15:42] LABS: ALT 19 U/L (8-44); AST 22 U/L (13-35); Albumin 4.2 g/dL (3.8-4.9); Alkaline Phosphatase 123 U/L (41-126); Blood Urea Nitrogen 17.7 mg/dL (9.0-27.0); Calcium 9.6 mg/dL (8.7-10.3); Carbon Dioxide 24.8 mmol/L (21.6-31.8); Chloride 102 mmol/L (96-109); Chol/HDL Ratio 2.69 Ratio; Creatine Kinase 83 U/L (26-186); Globulin 2.8 g/dL (1.6-3.3); Glucose 111 mg/dL (70-110); LDL Cholesterol,Calculated 73.3 mg/dL (0.0-131.0); Potassium 4.6 mmol/L (3.5-5.5); Sodium 139 mmol/L (135-145); T4, Free (Free Thyroxine) 1.38 ng/dL (0.80-1.80); Total Bilirubin 0.3 mg/dL (0.3-1.2)
[2024-03-06 16:58] LABS: Basophils # (A) 0.08 X 10*3/uL (0.00-0.10); Basophils % (A) 0.8 %; Eosinophils # (A) 0.56 X 10*3/uL (0.04-0.35); Eosinophils % (A) 5.7 %; HCT 41.2 % (37.2-46.3); HGB 12.9 g/dL (12.0-15.0); Lymphocytes # (A) 2.34 X 10*3/uL (0.90-5.00); MCHC 31.3 g/dL (32.0-37.0); MCV 92.6 FL (80.0-97.0); Mean Platelet Volume 9.5 FL (9.5-12.2); Monocytes # (A) 0.51 X 10*3/uL (0.20-1.00); Monocytes % (A) 5.2 %; NRBC Per 100 WBC 0 X 10*3/uL (0.00-0.01); Neutrophils # (A) 6.22 X 10*3/uL (1.80-7.70); Platelet Count 435 X 10*3/uL (140-440); RBC 4.45 X 10*6/uL (4.10-5.20); RDW 13.9 % (11.5-14.5); WBC 9.74 X 10*3/uL (4.50-10.00)
== END | disposition home or self-care (01) ==
LOC: LABWHC1 12:57
PROVIDERS: ATTEND Family Medicine
DX: Z13.228 Encounter for screening for other metabolic disorders (principal); Z13.29 Encounter for screening for other suspected endocrine disorder; E03.9 Hypothyroidism, unspecified; E11.21 Type 2 diabetes mellitus with diabetic nephropathy; E11.69 Type 2 diabetes mellitus with other specified complication; Z79.899 Other long term (current) drug therapy
CPT/HCPCS: 36415; 80053; 80061; 82550; 84439; 84443; 85025

== ENCOUNTER → 2024-03-29 | Outpatient (CLI) | payer OTHER ==
[2024-03-29 20:05] LABS: ALT 23 U/L (8-44); AST 24 U/L (13-35); Albumin 4.2 g/dL (3.8-4.9); Albumin/Globulin Ratio 1.62 Ratio (1.60-3.17); Alkaline Phosphatase 107 U/L (41-126); BUN/Creat Ratio 13.27 Ratio (12.00-20.00); Blood Urea Nitrogen 14.6 mg/dL (9.0-27.0); Calcium 9.5 mg/dL (8.7-10.3); Carbon Dioxide 26.5 mmol/L (21.6-31.8); Chloride 104 mmol/L (96-109); Globulin 2.6 g/dL (1.6-3.3); Glucose 77 mg/dL (70-110); Potassium 4.7 mmol/L (3.5-5.5); Sodium 141 mmol/L (135-145); Total Bilirubin 0.3 mg/dL (0.3-1.2); Total Protein 6.8 g/dL (6.2-8.2)
[2024-03-29 20:25] LABS: T4, Free (Free Thyroxine) 1.35 ng/dL (0.80-1.80)
== END | disposition home or self-care (01) ==
LOC: LABWHC1 13:19
PROVIDERS: ATTEND Internal Medicine
CPT/HCPCS: 36415; 80053; 83036; 84439; 84443

== ENCOUNTER → 2024-06-30 | Outpatient (CLI) | payer OTHER ==
--- NOTE | 2024-06-30 10:52 | MM ---
Reason for Exam: Screening (asymptomatic). Last mammogram was performed 1 year(s) and 1 month(s) ago. Patient History: Menarche at age 8. First Full-Term at age 32. Late child-bearing (after 30). Postmenopausal. Hormonal Contraceptives for 20 years from age 16 until age 51. Maternal cousin had breast cancer, age 30. Sister had ovarian cancer, age 35. Risk Values: Omaira 5 year model risk: 1.8%. NCI Lifetime model risk: 12.2%. Prior Study Comparison: 04/03/2021 Bilateral Screening Mammogram, [facility]. 04/22/2022 Bilateral MG screening mammo w CAD, [facility]. 06/17/2023 Bilateral MG screening mammo w CAD, [facility]. Tissue Density: The breasts are almost entirely fatty. Findings: Analyzed By CAD. Right breast: Focal asymmetry 6.2 cm from the nipple on CC view and MLO view 10 cm from nipple measuring up to 10 mm.. There is no suspicious group of microcalcifications or new suspicious mass. Left breast: There is no suspicious group of microcalcifications or new suspicious mass. Overall Assessment: Incomplete: need additional imaging evaluation, BI-RAD 0 Management: Diagnostic Mammogram of the right breast. Diagnostic Breast Ultrasound of the right breast. [facility] will attempt to contact patient to return for supplemental views and ultrasound if indicated. Patient should continue monthly self-breast exams. A clinical breast exam by your physician is recommended on an annual basis. This exam should not preclude additional follow-up of suspicious palpable abnormalities. Note on Omaira scores and lifetime risk: 1. A Omaira score greater than 3% is considered moderate risk. If this is the case, consider specialist referral to assess eligibility for a risk reducing agent. 2. If overall lifetime risk for the development of breast cancer is 20% or higher, the patient may qualify for future screening with alternating mammogram and breast MRI. [facility], , 06/30/2024 10:48 AM. Electronically signed and approved by: Bib Castro DO
== END | disposition home or self-care (01) ==
LOC: RADMAMWWP 09:51
PROVIDERS: ATTEND Family Medicine
DX: Z12.31 Encounter for screening mammogram for malignant neoplasm of breast (principal); R92.343 Mammographic extreme density, bilateral breasts; Z78.0 Asymptomatic menopausal state; Z80.3 Family history of malignant neoplasm of breast
CPT/HCPCS: 77067

== ENCOUNTER → 2024-07-07 | Outpatient (CLI) | payer OTHER ==
--- NOTE | 2024-07-07 09:10 | MM ---
Reason for Exam: Additional evaluation requested from abnormal screening. Last screening mammogram was performed less than 1 month ago. Patient History: Menarche at age 8. First Full-Term at age 32. Late child-bearing (after 30). Postmenopausal. Hormonal Contraceptives for 20 years from age 16 until age 51. Maternal cousin had breast cancer, age 30. Sister had ovarian cancer, age 35. Risk Values: Omaira 5 year model risk: 1.8%. NCI Lifetime model risk: 12.2%. Tissue Density: Right: There are scattered areas of fibroglandular density. Findings: Analyzed By CAD. No suspicious new focal lesion persists on additional views. Overall Assessment: Negative, BI-RAD 1 Management: Screening Mammogram of both breasts in 1 year. Return to routine follow-up. Results were given to the patient verbally at the time of exam. Patient should continue monthly self-breast exams. A clinical breast exam by your physician is recommended on an annual basis. This exam should not preclude additional follow-up of suspicious palpable abnormalities. Note on Omaira scores and lifetime risk: 1. A Omaira score greater than 3% is considered moderate risk. If this is the case, consider specialist referral to assess eligibility for a risk reducing agent. 2. If overall lifetime risk for the development of breast cancer is 20% or higher, the patient may qualify for future screening with alternating mammogram and breast MRI. [facility], , 07/07/2024 9:07 AM. Electronically signed and approved by: Ismael Zazueta M.D.
== END | disposition home or self-care (01) ==
LOC: RADMAMWWP 08:26
PROVIDERS: ATTEND Family Medicine
DX: R92.8 Other abnormal and inconclusive findings on diagnostic imaging of breast (principal); Z78.0 Asymptomatic menopausal state; Z80.3 Family history of malignant neoplasm of breast; R92.321 Mammographic fibroglandular density, right breast
CPT/HCPCS: 77065; G0279; 77061

== ENCOUNTER → 2024-07-18 | Outpatient (CLI) | payer OTHER ==
[2024-07-18 17:33] LABS: LDL Cholesterol,Calculated 75.6 mg/dL (0.0-131.0)
[2024-07-18 17:39] LABS: ALT 20 U/L (8-44); AST 31 U/L (13-35); Albumin 4.1 g/dL (3.8-4.9); Albumin/Globulin Ratio 1.41 Ratio (1.60-3.17); Alkaline Phosphatase 121 U/L (41-126); Blood Urea Nitrogen 21.7 mg/dL (9.0-27.0); Calcium 9.5 mg/dL (8.7-10.3); Carbon Dioxide 25.4 mmol/L (21.6-31.8); Chloride 103 mmol/L (96-109); Globulin 2.9 g/dL (1.6-3.3); Glucose 77 mg/dL (70-110); Potassium 4.7 mmol/L (3.5-5.5); Sodium 138 mmol/L (135-145); Total Bilirubin 0.3 mg/dL (0.3-1.2)
[2024-07-18 20:20] LABS: Microalbumin Creatinine Ratio <11 mg/g Cr (0-30)
== END | disposition home or self-care (01) ==
LOC: LABWHC1 08:48
PROVIDERS: ATTEND Internal Medicine
DX: E11.65 Type 2 diabetes mellitus with hyperglycemia (principal); Z79.4 Long term (current) use of insulin
CPT/HCPCS: 36415; 80053; 80061; 82043; 82570; 83036

== ENCOUNTER → 2024-09-19 | Outpatient (CLI) | payer OTHER ==
[2024-09-19 15:02] LABS: ALT 28 U/L (8-44); AST 20 U/L (13-35); Albumin 4.3 g/dL (3.8-4.9); Alkaline Phosphatase 135 U/L (41-126); BUN/Creat Ratio 25.75 Ratio (12.00-20.00); Blood Urea Nitrogen 20.6 mg/dL (9.0-27.0); Calcium 9.9 mg/dL (8.7-10.3); Carbon Dioxide 22.5 mmol/L (21.6-31.8); Chloride 101 mmol/L (96-109); Chol/HDL Ratio 2.81 Ratio; Creatine Kinase 75 U/L (26-186); Globulin 3.3 g/dL (1.6-3.3); Glucose 144 mg/dL (70-110); LDL Cholesterol,Calculated 90.9 mg/dL (0.0-131.0); Potassium 4.2 mmol/L (3.5-5.5); Sodium 137 mmol/L (135-145); T4, Free (Free Thyroxine) 1.23 ng/dL (0.80-1.80); Total Bilirubin <0.2 mg/dL (0.3-1.2); Total Protein 7.6 g/dL (6.2-8.2)
[2024-09-19 15:51] LABS: Basophils # (A) 0.05 X 10*3/uL (0.00-0.10); Basophils % (A) 0.3 %; Eosinophils # (A) 0.05 X 10*3/uL (0.04-0.35); Eosinophils % (A) 0.3 %; HCT 42.9 % (37.2-46.3); HGB 13.5 g/dL (12.0-15.0); Lymphocytes # (A) 2.54 X 10*3/uL (0.90-5.00); Lymphocytes % (A) 14.8 %; MCH 28.2 pg (27.0-32.0); MCHC 31.5 g/dL (32.0-37.0); MCV 89.7 FL (80.0-97.0); Mean Platelet Volume 9.1 FL (9.5-12.2); Monocytes # (A) 0.94 X 10*3/uL (0.20-1.00); Monocytes % (A) 5.5 %; NRBC Per 100 WBC 0 X 10*3/uL (0.00-0.01); Neutrophils # (A) 13.47 X 10*3/uL (1.80-7.70); Neutrophils % (A) 78.5 %; Platelet Count 506 X 10*3/uL (140-440); RBC 4.78 X 10*6/uL (4.10-5.20); RDW 13.4 % (11.5-14.5); WBC 17.15 X 10*3/uL (4.50-10.00)
== END | disposition home or self-care (01) ==
LOC: LABWHC1 10:10
PROVIDERS: ATTEND Physician Assistant Medical
DX: E03.9 Hypothyroidism, unspecified (principal); E11.65 Type 2 diabetes mellitus with hyperglycemia; E11.69 Type 2 diabetes mellitus with other specified complication; Z79.899 Other long term (current) drug therapy
CPT/HCPCS: 36415; 80053; 80061; 82043; 82550; 82570; 84439; 84443; 85025

== ENCOUNTER → 2024-09-29 | Outpatient (CLI) | payer OTHER ==
[2024-09-29 20:49] LABS: Basophils # (A) 0.08 X 10*3/uL (0.00-0.10); Basophils % (A) 0.6 %; Eosinophils # (A) 0.43 X 10*3/uL (0.04-0.35); Eosinophils % (A) 3.3 %; HCT 41.8 % (37.2-46.3); Lymphocytes # (A) 2.91 X 10*3/uL (0.90-5.00); Lymphocytes % (A) 22.2 %; MCH 28.1 pg (27.0-32.0); MCHC 31.1 g/dL (32.0-37.0); MCV 90.5 FL (80.0-97.0); Mean Platelet Volume 9.4 FL (9.5-12.2); Monocytes # (A) 0.64 X 10*3/uL (0.20-1.00); Monocytes % (A) 4.9 %; NRBC Per 100 WBC 0 X 10*3/uL (0.00-0.01); Neutrophils # (A) 9.01 X 10*3/uL (1.80-7.70); Neutrophils % (A) 68.5 %; Platelet Count 460 X 10*3/uL (140-440); RBC 4.62 X 10*6/uL (4.10-5.20); RDW 13.8 % (11.5-14.5); WBC 13.13 X 10*3/uL (4.50-10.00)
== END | disposition home or self-care (01) ==
LOC: LABWHC1 13:31
PROVIDERS: ATTEND Physician Assistant Medical
DX: D72.829 Elevated white blood cell count, unspecified (principal); D75.839 Thrombocytosis, unspecified
CPT/HCPCS: 36415; 85025

== ENCOUNTER → 2024-10-24 | Outpatient (CLI) | payer OTHER ==
[2024-10-24 10:37] LABS: Basophils # (A) 0.09 X 10*3/uL (0.00-0.10); Basophils % (A) 0.8 %; Eosinophils # (A) 0.59 X 10*3/uL (0.04-0.35); Eosinophils % (A) 5.1 %; HCT 42.2 % (37.2-46.3); HGB 13.2 g/dL (12.0-15.0); Lymphocytes # (A) 2.93 X 10*3/uL (0.90-5.00); Lymphocytes % (A) 25.5 %; MCH 27.9 pg (27.0-32.0); MCHC 31.3 g/dL (32.0-37.0); MCV 89.2 FL (80.0-97.0); Mean Platelet Volume 9.3 FL (9.5-12.2); Monocytes # (A) 0.72 X 10*3/uL (0.20-1.00); Monocytes % (A) 6.3 %; NRBC Per 100 WBC 0 X 10*3/uL (0.00-0.01); Neutrophils # (A) 7.11 X 10*3/uL (1.80-7.70); Platelet Count 443 X 10*3/uL (140-440); RBC 4.73 X 10*6/uL (4.10-5.20); RDW 13.2 % (11.5-14.5); WBC 11.48 X 10*3/uL (4.50-10.00)
== END | disposition home or self-care (01) ==
LOC: LABWHC1 08:24
PROVIDERS: ATTEND Physician Assistant Medical
DX: D72.828 Other elevated white blood cell count (principal); E11.65 Type 2 diabetes mellitus with hyperglycemia; Z79.4 Long term (current) use of insulin
CPT/HCPCS: 36415; 83036; 85025

== ENCOUNTER 2024-12-31 15:22 | Emergency (ER) | payer OTHER ==
[2024-12-31 16:44] LABS: Basophils # (A) 0.11 10*3/uL (0.00-0.10); Basophils % (A) 0.8 %; Eosinophils # (A) 0.68 10*3/uL (0.04-0.35); Eosinophils % (A) 4.7 %; HCT 41.7 % (37.2-46.3); HGB 13.3 g/dL (12.0-15.0); Lymphocytes # (A) 3.64 10*3/uL (0.90-5.00); Lymphocytes % (A) 25.3 %; MCH 28.0 pg (27.0-32.0); MCHC 31.9 g/dL (32.0-37.0); MCV 87.8 fL (80.0-97.0); Monocytes # (A) 0.89 10*3/uL (0.20-1.00); Monocytes % (A) 6.2 %; Neutrophils # (A) 9.00 10*3/uL (1.80-7.70); Neutrophils % (A) 62.7 %; Platelet Count 396 10*3/uL (140-440); RBC 4.75 10*6/uL (4.10-5.20); RDW 13.4 % (11.5-14.5); WBC 14.37 10*3/uL (4.50-10.00)
--- NOTE | 2024-12-31 16:45 | ED ---
SOB HPI - General Chief Complaint: Shortness of Breath Stated Complaint: SOB,Chest pain Time Seen by Provider: 12/31/24 15:38 Source: patient, RN notes reviewed Mode of arrival: ambulatory Limitations: no limitations - History of Present Illness MD Complaint: shortness of breath, cough, chest pain Onset/Timin -: days(s) Quality: sharp Consistency: intermittent Improves With: rest Worsens With: exertion Known History Of: asthma, DVT Associated Symptoms: chest pain, cough Treatments Prior to Arrival: diuretics - Related Data Home Medications Medication Instructions Recorded Confirmed Aspirin 81 mg PO DAILY 04/18/16 03/02/23 Atorvastatin [Lipitor] 40 mg PO DAILY 04/18/16 03/02/23 ARIPiprazole [Abilify] 5 mg PO DAILY 12/01/19 03/02/23 Gabapentin [Neurontin] 400 mg PO TID 12/01/19 03/02/23 Multivitamins, Thera [Multivitamin 1 tab PO DAILY 12/01/19 03/02/23 (formulary)] Cholecalciferol (Vitamin D3) 125 mcg PO DAILY 05/16/21 03/02/23 [Vitamin D3 (125 MCG = 5,000 IU)] Cyclobenzaprine HCl 10 mg PO DAILY PRN 05/16/21 03/02/23 Dapagliflozin Propanediol [Farxiga] 10 mg PO DAILY 05/16/21 03/02/23 Furosemide [Lasix] 20 mg PO DAILY 05/16/21 03/02/23 Levothyroxine Sodium [Synthroid] 137 mcg PO DAILY 05/16/21 03/02/23 Losartan Potassium 100 mg PO DAILY 05/16/21 03/02/23 Magnesium Oxide [Cuevas] 500 mg PO DAILY 05/16/21 03/02/23 Pioglitazone HCl 30 mg PO DAILY 05/16/21 03/02/23 Sertraline [Zoloft] 150 mg PO DAILY 05/16/21 03/02/23 Turmeric Root Extract [Turmeric] 1,200 mg PO DAILY 05/16/21 03/02/23 metFORMIN HCL ER [Glucophage XR] 500 mg PO BID 05/16/21 03/02/23 DULoxetine HCL [Cymbalta] 60 mg PO DAILY 07/07/22 03/02/23 Montelukast [Singulair] 10 mg PO DAILY 12/18/22 03/02/23 Tirzepatide [Mounjaro] 10 mg SQ RADER 12/18/22 03/02/23 oxyCODONE-APAP 7.5-325MG [Percocet 1 tab PO BID PRN 12/18/22 03/02/23 7.5-325 mg] Previous Rx's Medication Instructions Recorded Cephalexin [Keflex] 500 mg PO Q6HR 7 Days #28 cap 03/04/23 Albuterol Inhaler [Ventolin Hfa 1 - 2 puff INHALATION Q6H PRN #1 12/31/24 Inhaler] each predniSONE 50 mg PO DAILY #5 tab 12/31/24 Allergies Allergy/AdvReac Type Severity Reaction Status Date / Time amoxicillin [From Augmentin] AdvReac Nausea & Verified 03/04/23 14:03 Vomiting clavulanic acid AdvReac Nausea & Verified 03/04/23 14:03 [From Augmentin] Vomiting Sulfa (Sulfonamide AdvReac Nausea Verified 03/04/23 14:03 Antibiotics) Review of Systems ROS Statement: Those systems with pertinent positive or pertinent negative responses have been documented in the HPI. ROS Other: All systems not noted in ROS Statement are negative. Past Medical History Past Medical History: Diabetes Mellitus, Deep Vein Thrombosis (DVT), Hyperlipidemia, Hypertension, Thyroid Disorder Additional Past Medical History / Comment(s): diverticulitis History of Any Multi-Drug Resistant Organisms: None Reported Past Surgical History: Section, Cholecystectomy, Joint Replacement, Orthopedic Surgery Additional Past Surgical History / Comment(s): Left meniscus repair, rt foot surgery, TLK 12/28/22 Past Anesthesia/Blood Transfusion Reactions: No Reported Reaction Past Psychological History: Depression Smoking Status: Never smoker Past Alcohol Use History: None Reported Past Drug Use History: None Reported - Past Family History Mother Family Medical History: Congestive Heart Failure (CHF), COPD General Exam Limitations: no limitations General appearance: alert, in no apparent distress Head exam: Present: atraumatic, normocephalic, normal inspection Eye exam: Present: normal appearance, PERRL, EOMI. Absent: scleral icterus, conjunctival injection, periorbital swelling ENT exam: Present: normal exam, mucous membranes moist Neck exam: Present: normal inspection. Absent: tenderness, meningismus, lymphadenopathy Respiratory exam: Present: wheezes, rhonchi, prolonged expiratory. Absent: respiratory distress, rales, stridor, chest wall tenderness, accessory muscle use, decreased breath sounds Cardiovascular Exam: Present: regular rate, normal rhythm, normal heart sounds. Absent: systolic murmur, diastolic murmur, rubs, gallop, clicks GI/Abdominal exam: Present: soft, normal bowel sounds. Absent: distended, tenderness, guarding, rebound, rigid Extremities exam: Present: normal inspection, full ROM, normal capillary refill. Absent: tenderness, pedal edema, joint swelling, calf tenderness Back exam: Present: normal inspection Neurological exam: Present: alert, oriented X3, CN II-XII intact Psychiatric exam: Present: normal affect, normal mood Skin exam: Present: warm, dry, intact, normal color. Absent: rash Course Vital Signs 12/31/24 12/31/24 12/31/24 15:25 15:29 17:51 Temperature 97.8 F Pulse Rate 87 78 Respiratory 18 21 Rate Blood Pressure 105/64 O2 Sat by Pulse 96 99 Oximetry 12/31/24 12/31/24 18:04 18:48 Temperature 98.0 F Pulse Rate 78 79 Respiratory 16 Rate Blood Pressure 122/54 O2 Sat by Pulse 100 Oximetry Medical Decision Making - Medical Decision Making Was pt. sent in by a medical professional or institution (, PA, GENERAL NEUROLOGIST, urgent care, hospital, or retirement...) When possible be specific @ -[No] Did you speak to anyone other than the patient for history (EMS, parent, family, police, friend...)? What history was obtained from this source @ -[No] Did you review nursing and triage notes (agree or disagree)? Why? @ -[I reviewed and agree with nursing and triage notes] Were old charts reviewed (outside hosp., previous admission, EMS record, old EKG, old radiological studies, urgent care reports/EKG's, retirement records)? Report findings @ -[No old charts were reviewed] Differential Diagnosis (chest pain, altered mental status, abdominal pain women, abdominal pain men, vaginal bleeding, weakness, fever, dyspnea, syncope, headache, dizziness, GI bleed, back pain, seizure, CVA, palpatations, mental health, musculoskeletal)? @ -Differential Dyspnea: Coronary syndrome, arrhythmia, tamponade, asthma, COPD, pulmonary embolism, pneumonia, pneumothorax, pulmonary effusion, anaphylaxis, diabetic ketoacidosis, flailed chest, pulmonary contusion, diaphragmatic rupture, anemia, neuromuscular, this is not meant to be an all-inclusive list. EKG interpreted by me (3pts min.). @ -Sinus rhythm with LAD. No ST deviation or T wave inversion. Ventricular rate 79 bpm, JULIANN 126 ms, QRS 22 ms, QTc 446 ms. X-rays interpreted by me (1pt min.). @ -CXR shows no acute cardiopulmonary process CT interpreted by me (1pt min.). @ -[None done] U/S interpreted by me (1pt. min.). @ -[None done] What testing was considered but not performed or refused? (CT, X-rays, U/S, labs)? Why? @ -[None] What meds were considered but not given or refused? Why? @ -[None] Did you discuss the management of the patient with other professionals (professionals i.e. , PA, GENERAL NEUROLOGIST, lab, RT, psych nurse, executive secretary social welfare, military lawyer, teacher, customs patrol officer, high risk case manager)? Give summary @ -[No] Was smoking cessation discussed for >3mins.? @ -[No] Was critical care preformed (if so, how long)? @ -[No] Were there social determinants of health that impacted care today? How? (Homelessness, low income, unemployed, alcoholism, drug addiction, transportation, low edu. Level, literacy, decrease access to med. care, long term, rehab)? @ -[No] Was there de-escalation of care discussed even if they declined (Discuss DNR or withdrawal of care, Hospice)? DNR status @ -[No] What co-morbidities impacted this encounter? (DM, HTN, Smoking, COPD, CAD, Cancer, CVA, ARF, Chemo, Hep., AIDS, mental health diagnosis, sleep apnea, morbid obesity)? @ -Thrombocytosis, DM, asthma Was patient admitted / discharged? Hospital course, mention meds given and route, prescriptions, significant lab abnormalities, going to OR and other pertinent info. @ -[hospital course] Undiagnosed new problem with uncertain prognosis? @ -[No] Drug Therapy requiring intensive monitoring for toxicity (Heparin, Nitro, Insulin, Cardizem)? @ -[No] Were any procedures done? @ -[No] Diagnosis/symptom? @ -[default] Acute, or Chronic, or Acute on Chronic? @ -Acute Uncomplicated (without systemic symptoms) or Complicated (systemic symptoms)? @ -Complicated Side effects of treatment? @ -[No] Exacerbation, Progression, or Severe Exacerbation? @ -[No] Poses a threat to life or bodily function? How? (Chest pain, [place], [place], pneumonia, PE, COPD, DKA, ARF, appy, cholecystitis, CVA, Diverticulitis, Homicidal, Suicidal, threat to staff... and all critical care pts) @ -[No] - Lab Data Result diagrams: 12/31/24 16:38 12/31/24 16:38 Lab Results 12/31/24 12/31/24 12/31/24 Range/Units 16:38 16:38 16:38 WBC 14.37 H (4.50-10.00) 10*3/uL RBC 4.75 (4.10-5.20) 10*6/uL Hgb 13.3 (12.0-15.0) g/dL Hct 41.7 (37.2-46.3) % MCV 87.8 (80.0-97.0) fL MCH 28.0 (27.0-32.0) pg MCHC 31.9 L (32.0-37.0) g/dL Plt Count 396 (140-440) 10*3/uL MPV 8.6 L (9.5-12.2) fL Immature Gran % (Auto) 0.3 % Neutrophils % 62.7 % Lymphocytes % 25.3 % Monocytes % 6.2 % Eosinophils % 4.7 % Basophils % 0.8 % Immature Gran # 0.05 H (0.00-0.04) 10*3/uL Neutrophils # 9.00 H (1.80-7.70) 10*3/uL Lymphocytes # 3.64 (0.90-5.00) 10*3/uL Monocytes # 0.89 (0.20-1.00) 10*3/uL Eosinophils # 0.68 H (0.04-0.35) 10*3/uL Basophils # 0.11 H (0.00-0.10) 10*3/uL PT 10.7 (10.0-12.5) sec INR 1.0 (<1.2) APTT 22.0 (22.0-30.0) sec D-Dimer 0.69 H (<0.60) mg/L FEU Sodium 143 (137-145) mmol/L Potassium 4.1 (3.5-5.1) mmol/L Chloride 106 (98-107) mmol/L Carbon Dioxide 24 (22-30) mmol/L Anion Gap 13 mmol/L BUN 23 H (7-17) mg/dL Creatinine 0.81 (0.52-1.04) mg/dL Est GFR (CKD-EPI)AfAm >90 (>60 ml/min/1.73 sqM) Est GFR (CKD-EPI)NonAf 82 (>60 ml/min/1.73 sqM) Glucose 108 H (74-99) mg/dL Plasma Lactic Acid Hung (0.7-2.0) mmol/L Calcium 9.6 (8.4-10.2) mg/dL Total Bilirubin 0.5 (0.2-1.3) mg/dL AST 28 (14-36) U/L ALT 25 (4-34) U/L Alkaline Phosphatase 132 H (38-126) U/L Troponin I (0.000-0.034) ng/mL NT-Pro-B Natriuret Pep 70 pg/mL Total Protein 7.7 (6.3-8.2) g/dL Albumin 4.4 (3.5-5.0) g/dL Influenza Type A (PCR) (Not Detectd) Influenza Type B (PCR) (Not Detectd) RSV (PCR) (Not Detectd) SARS-CoV-2 (PCR) (Not Detectd) 12/31/24 12/31/24 12/31/24 Range/Units 16:38 16:38 16:38 WBC (4.50-10.00) 10*3/uL RBC (4.10-5.20) 10*6/uL Hgb (12.0-15.0) g/dL Hct (37.2-46.3) % MCV (80.0-97.0) fL MCH (27.0-32.0) pg MCHC (32.0-37.0) g/dL Plt Count (140-440) 10*3/uL MPV (9.5-12.2) fL Immature Gran % (Auto) % Neutrophils % % Lymphocytes % % Monocytes % % Eosinophils % % Basophils % % Immature Gran # (0.00-0.04) 10*3/uL Neutrophils # (1.80-7.70) 10*3/uL Lymphocytes # (0.90-5.00) 10*3/uL Monocytes # (0.20-1.00) 10*3/uL Eosinophils # (0.04-0.35) 10*3/uL Basophils # (0.00-0.10) 10*3/uL PT (10.0-12.5) sec INR (<1.2) APTT (22.0-30.0) sec D-Dimer (<0.60) mg/L FEU Sodium (137-145) mmol/L Potassium (3.5-5.1) mmol/L Chloride (98-107) mmol/L Carbon Dioxide (22-30) mmol/L Anion Gap mmol/L BUN (7-17) mg/dL Creatinine (0.52-1.04) mg/dL Est GFR (CKD-EPI)AfAm (>60 ml/min/1.73 sqM) Est GFR (CKD-EPI)NonAf (>60 ml/min/1.73 sqM) Glucose (74-99) mg/dL Plasma Lactic Acid Hung 1.7 (0.7-2.0) mmol/L Calcium (8.4-10.2) mg/dL Total Bilirubin (0.2-1.3) mg/dL AST (14-36) U/L ALT (4-34) U/L Alkaline Phosphatase (38-126) U/L Troponin I <0.012 (0.000-0.034) ng/mL NT-Pro-B Natriuret Pep pg/mL Total Protein (6.3-8.2) g/dL Albumin (3.5-5.0) g/dL Influenza Type A (PCR) Not Detected (Not Detectd) Influenza Type B (PCR) Not Detected (Not Detectd) RSV (PCR) Not Detected (Not Detectd) SARS-CoV-2 (PCR) Not Detected (Not Detectd) Disposition Clinical Impression: Bronchitis Disposition: HOME SELF-CARE Condition: Fair Instructions (If sedation given, give patient instructions): Acute Bronchitis (ED) Additional Instructions: Follow-up with primary care in the next 24-48 hours for further evaluation and management of difficulty breathing. Prescriptions: predniSONE 50 mg PO DAILY #5 tab Albuterol Inhaler [Ventolin Hfa Inhaler] 1 - 2 puff INHALATION Q6H PRN #1 each PRN Reason: Shortness Of Breath Is patient prescribed a controlled substance at d/c from ED?: No Referrals: Dani Jack DO [Primary Care Provider] - 1-2 days Time of Disposition: 19:18
[2024-12-31 17:04] LABS: ALT 25 U/L (4-34); African American GFR (CKD) >90 (>60 ml/min/1.73 sqM); Albumin 4.4 g/dL (3.5-5.0); Anion Gap 13 mmol/L; Blood Urea Nitrogen 23 mg/dL (7-17); Calcium 9.6 mg/dL (8.4-10.2); Carbon Dioxide 24 mmol/L (22-30); Chloride 106 mmol/L (98-107); Glucose 108 mg/dL (74-99); Non-African American GFR(CKD) 82 (>60 ml/min/1.73 sqM); Sodium 143 mmol/L (137-145); Total Protein 7.7 g/dL (6.3-8.2)
[2024-12-31 17:12] LABS: NT-Pro-B-Type Natriuretic Pept 70 pg/mL
[2024-12-31 17:15] LABS: INR 1.0 (<1.2); Prothrombin Time 10.7 sec (10.0-12.5)
[2024-12-31 17:16] LABS: AST 28 U/L (14-36); Partial Thromboplastin Time 22.0 sec (22.0-30.0); Potassium 4.1 mmol/L (3.5-5.1)
[2024-12-31 17:17] LABS: Alkaline Phosphatase 132 U/L (38-126)
[2024-12-31] MEDS: methylPREDNISolone SOD SUCCI 125 MG/2 ML VIAL IV STA (17:19)
--- NOTE | 2024-12-31 17:19 | XR ---
EXAMINATION TYPE: XR chest 2V DATE OF EXAM: 12/31/2024 4:49 PM COMPARISON: Chest radiographs from 04/17/2022. CLINICAL INDICATION: Female, 54 years old with history of Shortness of breath; [facility] TECHNIQUE: XR chest 2V Frontal and lateral views of the chest. FINDINGS: Lungs/Pleura: There is no evidence of pleural effusion, focal consolidation, or pneumothorax. Pulmonary vascularity: Unremarkable. Heart/mediastinum: Cardiomediastinal silhouette is unremarkable. Musculoskeletal: No acute osseous pathology. IMPRESSION: No acute cardiopulmonary disease/process. [facility], , 12/31/2024 5:17 PM
[2024-12-31] MEDS: SODIUM CHLORIDE 0.9% 1,000 ML IV STA (17:20)
[2024-12-31 17:26] LABS: RSV Not Detected (Not Detectd)
[2024-12-31] MEDS: IPRATROPIUM-ALBUTEROL 3 ML NEB INHALATION STA (17:51)
--- NOTE | 2024-12-31 18:53 | CT ---
EXAMINATION TYPE: CT angio chest DATE OF EXAM: 12/31/2024 6:21 PM COMPARISON: Chest radiograph from same day. CLINICAL INDICATION: Female, 54 years old with history of SOB, elevated D-dimer; BONI/COUGH TECHNIQUE/CONTRAST: CTA scan of the thorax is performed with IV Contrast, patient injected with 100 ml mL of Isovue 370, MIP images are created and reviewed these are created on a separate workstation.. CT DLP: 703.1 mGycm, Automated exposure control for dose reduction was used. FINDINGS: Lungs/Pleura: No evidence of focal consolidation, pleural effusion or pneumothorax. Airway: Large airways are patent. Heart: Size within normal limits. No significant coronary artery calcifications. Vasculature: There is no evidence for a filling defect within the pulmonary vasculature to suggest ac robinson pulmonary embolism. The pulmonary artery is of normal size. Mediastinum: No gross evidence of adenopathy. Musculoskeletal: Mild disc degeneration changes are present throughout the thoracolumbar spine second mitesh to osteophyte formation and facet joint arthropathy. Soft Tissues/lymph nodes: Unremarkable. Lower neck: No significant findings. Upper Abdomen: No significant findings. The gallbladder surgically absent. Mild dilation of the expec clint value system which can be normal postcholecystectomy physiology. Scattered colonic diverticulosis . IMPRESSION: No evidence of pulmonary embolism. [facility], , 12/31/2024 6:50 PM
[2024-12-31 20:12] VITALS: BP 127/74; PULSE 73; RESP 18; TEMP 97.9
== END 2024-12-31 20:06 | disposition home or self-care (01) ==
LOC: EC 15:22
DX: J40 Bronchitis, not specified as acute or chronic (principal); Z88.0 Allergy status to penicillin; Z88.1 Allergy status to other antibiotic agents; Z88.2 Allergy status to sulfonamides
CPT/HCPCS: 36415; 94640; 93005; 85379; 83880; 80053; 83605; 84484; 85025; 85610; 85730; 87636; 71046; 71275; 99285; 96374; 96361; Q9967; J2919